=== PATIENT | female | born 1945 | race Caucasian/White ===

== ENCOUNTER 2020-01-15 10:14 | Outpatient (CLI) | payer MEDICARE, OTHER, SELFPAY ==
[2020-01-15 11:41] LABS: Creatinine Urine 241.6 mg/dL; Total Protein Urine Random 9 mg/dL
[2020-01-15 11:41] LABS: Blood Urea Nitrogen 23 mg/dL (7-17); Calcium 9.5 mg/dL (8.4-10.2); Carbon Dioxide 23 mmol/L (22-30); Chloride 104 mmol/L (98-107); Estimated Glomerular Filt Rate 31; Glucose 192 mg/dL (65-105); Parathyroid Intact 62.4 pg/mL (7.5-53.5); Phosphorus 3.5 mg/dL (2.5-4.5); Potassium 4.1 mmol/L (3.4-5.0); Sodium 136 mmol/L (137-145)
[2020-01-15 12:18] LABS: Vitamin D 25 Hydroxy 38.2 ng/mL
== END 2020-01-15 10:15 | disposition home or self-care (01) ==
LOC: ANHLAB 10:18
PROVIDERS: PCP Internal Medicine; Visit Provider Internal Medicine Nephrology
DX: N18.3 Chronic kidney disease, stage 3 (moderate) (principal); I12.9 Hypertensive chronic kidney disease with stage 1 through stage 4 chronic kidney disease, or unspecified chronic kidney disease; R80.8 Other proteinuria
CPT/HCPCS: 36415; 80069; 82306; 82570; 83970; 84156

== ENCOUNTER 2020-08-30 09:51 | Outpatient (CLI) | payer MEDICARE, OTHER, SELFPAY ==
[2020-08-30 10:32] LABS: Basophils Absolute Auto 0.1 K/mm3 (0.0-0.1); Basophils Percent Auto 0.9 % (0.2-1.2); Eosinophils Absolute Auto 0.1 K/mm3 (0-0.3); Eosinophils Percent Auto 1.4 % (0-4.4); Hematocrit 40.8 % (37.0-47.0); Immature Granulocyte Absolute 0.02 K/mm3 (0.00-0.031); Immature Granulocyte Percent A 0.4 % (0-0.5); Lymphocytes Absolute Auto 0.86 K/mm3 (0.9-3.2); Lymphocytes Percent Auto 15.4 % (18.3-44.2); Mean Corpuscular HGB Conc 31.9 g/dl (32-36); Mean Corpuscular Hemoglobin 30.3 pg (26-34); Mean Corpuscular Volume 95.1 fl (80-100); Mean Platelet Volume 12.6 fl (7.4-10.4); Monocytes Absolute Auto 0.5 K/mm3 (0.1-0.6); Monocytes Percent Auto 8.6 % (2.6-8.5); Neutrophils Absolute Auto 4.1 K/mm3 (1.3-6.7); Neutrophils Percent Auto 73.3 % (45.5-73.1); Platelet Count Result 173 k/mm3 (150-375); Red Blood Count 4.29 M/mm3 (4.2-5.4); White Blood Count 5.6 K/mm3 (4.5-10.0)
[2020-08-30 10:45] LABS: Alanine Aminotransferase 13 U/L (4-35); Albumin Level 4.2 g/dL (3.5-5.1); Alkaline Phosphatase 95 U/L (38-126); Anion Gap 10 mmol/L (8-16); Aspartate Amino Transferase 20 U/L (14-36); Bilirubin,Total 0.6 mg/dL (0.2-1.3); Blood Urea Nitrogen 20 mg/dL (7-17); Calcium 9.6 mg/dL (8.4-10.2); Carbon Dioxide 23 mmol/L (22-30); Chloride 104 mmol/L (98-107); Cholesterol 226 mg/dL (0-200); Estimated Glomerular Filt Rate 34; Glucose 116 mg/dL (65-105); HDL Direct 92 mg/dL; Potassium 3.9 mmol/L (3.4-5.0); Sodium 137 mmol/L (137-145); Triglycerides 164 mg/dL (<150)
[2020-08-30 10:55] LABS: LDL Cholesterol Direct 111 mg/dL
== END 2020-08-30 09:52 | disposition home or self-care (01) ==
LOC: ANHLAB 09:56
PROVIDERS: PCP Internal Medicine; Visit Provider Nurse Practitioner
DX: D50.9 Iron deficiency anemia, unspecified (principal); I10 Essential (primary) hypertension; Z13.220 Encounter for screening for lipoid disorders
CPT/HCPCS: 36415; 80053; 80061; 85025

== ENCOUNTER 2020-09-15 15:38 | Outpatient (CLI) | payer MEDICARE, OTHER, SELFPAY ==
[2020-09-15 16:14] LABS: Alanine Aminotransferase 14 U/L (4-35); Albumin Level 4.3 g/dL (3.5-5.1); Alkaline Phosphatase 81 U/L (38-126); Anion Gap 6 mmol/L (8-16); Aspartate Amino Transferase 22 U/L (14-36); Bilirubin,Total 0.2 mg/dL (0.2-1.3); Blood Urea Nitrogen 23 mg/dL (7-17); Calcium 9.2 mg/dL (8.4-10.2); Carbon Dioxide 26 mmol/L (22-30); Chloride 107 mmol/L (98-107); Estimated Glomerular Filt Rate 36; Glucose 90 mg/dL (65-105); Potassium 4.5 mmol/L (3.4-5.0); Sodium 139 mmol/L (137-145); Uric Acid 9.4 mg/dL (2.5-7.5)
== END 2020-09-15 15:39 | disposition home or self-care (01) ==
LOC: ANHLAB 15:40
PROVIDERS: PCP Internal Medicine; Visit Provider Podiatrist Foot & Ankle Surgery
DX: M10.079 Idiopathic gout, unspecified ankle and foot (principal)
CPT/HCPCS: 36415; 80053; 84550

== ENCOUNTER 2020-10-16 00:57 | Outpatient (CLI) | payer MEDICARE, OTHER, SELFPAY ==
[2020-10-16 18:31] LABS: SARS-CoV-2 RNA PCR Negative
== END 2020-10-16 00:58 | disposition home or self-care (01) ==
LOC: ANHCOVIDDT 00:57
PROVIDERS: PCP Internal Medicine; Visit Provider Internal Medicine Gastroenterology
DX: Z01.812 Encounter for preprocedural laboratory examination (principal); Z20.828 Contact with and (suspected) exposure to other viral communicable diseases
CPT/HCPCS: 87635; C9803; U0003

== ENCOUNTER 2020-10-19 01:07 | Day surgery (SDC) | payer MEDICARE, OTHER, SELFPAY ==
[2020-10-11 10:59] VITALS: BMI 29.8
[2020-10-19 12:17] VITALS: BP 150/80; PULSE 82; RESP 18; TEMP 36.2; O2SAT 96
[2020-10-19] MEDS: LACTATED RINGERS 1,000 ML 150 ML IV CONT (12:29)
--- NOTE | 2020-10-19 12:49 | WPDANESEPPF ---
Anes - Initial Pre Proc Eval Procedure: Operation Date: 10/19/20 13:30 Proposed Procedures p Screening Colonoscopy - Isaac Kaur MD Date/Time: 10/19/20 12:49 Surgeon: Isaac Kaur MD Pre Op Diagnosis: Neoplasm Screening Patient Data Age: 75 Gender: F Height: 5 ft 2 in Weight: 76.2 kg Last Vital Signs Temp 97.1 F L 10/19/20 12:17 Pulse 82 10/19/20 12:17 Resp 18 10/19/20 12:17 BP 150/80 H 10/19/20 12:17 Pulse Ox 96 10/19/20 12:17 Allergies Allergy/AdvReac Type Severity Reaction Status Date / Time Sulfa (Sulfonamide Allergy Intermediate Hives Verified 10/19/20 12:16 Antibiotics) Home Medications Medication Instructions Recorded Confirmed Type fluoxetine 40 mg capsule 40 mg PO DAILY 11/13/19 10/11/20 History amlodipine 5 mg tablet 5 mg PO DAILY 09/06/20 10/11/20 History biotin 5,000 mcg sublingual tablet 5,000 mcg SUBLINGUAL DAILY 09/06/20 10/11/20 History cholecalciferol (vitamin D3) 50 50 mcg PO DAILY 09/06/20 10/11/20 History mcg (2,000 unit) capsule mecobalamin (vitamin B12) 1,000 1,000 mcg SUBLINGUAL DAILY 09/06/20 10/11/20 History mcg disintegrating tablet,sublingual triamterene 37.5 1 tablet PO QAM 09/06/20 10/11/20 History mg-hydrochlorothiazide 25 mg tablet trazodone 100 mg tablet 100 mg PO DAILY #90 tablet 09/16/20 10/11/20 Rx Patient hx anesthesia problems: none Family hx anesthesia problems: none PMFSH Past Medical History Medical History (Updated 09/06/20 @ 11:45 by Marjan Vega NP) Anemia CKD (chronic kidney disease) Depression Hyperglycemia Hypertension Insomnia Overdose of antidepressant Surgical History Surgical History (Updated 11/13/19 @ 14:20 by Aleja Mcrae CMA) H/O: hysterectomy Family History Family History (Updated 09/06/20 @ 10:42 by Karlie Ash CMA) Sibling Pancreatic cancer Father Family history of lung cancer Other Family history of cardiovascular disease Social History Social History (Updated 09/06/20 @ 10:42 by Karlie Ash CMA) Smoking status: Never smoker Smoking end date: 11/19/72 Alcohol intake: current Drinks per week: 2 Substance use: never Substance use type: does not use Living arrangements: alone Spiritual care concerns: No Anes - Eval Final PreProcedure Day of Procedure 10/19/20 12:49 Patient weight: normal Heart: regular rate and rhythm Lungs: clear to auscultation Airway: Mallampati scale class II Neurological: alert and oriented Last oral intake: >/= 8 hours ASA classification: III Emergent: no Anesthetic plan: proceed Anesthesia type and monitoring: general GIVS and standard monitoring Informed Consent: The patient's anesthetic plan and its attendant risks and benefits were discussed with the patient/family/POA. Questions were solicited and answers provided to the satisfaction of the patient/family/POA.
--- NOTE | 2020-10-19 13:29 | PM.HPGS ---
History of Present Illness History of Present Illness Consent: Risks, benefits, and alternatives have been discussed and questions answered. Patient agrees to proceed with procedure. Chief complaint: Neoplasm Screening Narrative: Elle Corrigan is a 75 year old female with last colonoscopy 8 years ago, now + cologuard Review of Systems Constitutional: Constitutional: Denies headache(s) and Denies weakness Eyes: Eyes: Denies blurry vision ENT: Reports Normal hearing present, Denies headache(s) and Denies neck pain Cardiovascular: Cardiovascular: Denies chest pain and Denies dyspnea Respiratory: Respiratory: Denies dyspnea Gastrointestinal: Gastrointestinal: Reports no additional gastrointestinal complaints Genitourinary: Genitourinary: Denies dysuria Musculoskeletal: Musculoskeletal: Denies neck pain Integumentary/Breasts: Skin/Breast: Denies dry skin Neurologic: Reports Normal hearing present, Denies headache(s) and Denies weakness Psychiatric: Psychiatric: Denies anxiety Endocrine: Endocrine: Denies change in body appearance Hematologic/Lymphatic: Hematologic/Lymphatic: Denies easy bleeding Allergic/Immunologic: Allergic/Immunologic: Denies urticaria PMFSH Past Medical History Medical History (Updated 10/19/20 @ 13:29 by Isaac Kaur MD) Anemia CKD (chronic kidney disease) Depression Hyperglycemia Hypertension Insomnia Overdose of antidepressant Positive colorectal cancer screening using Cologuard test Surgical History Surgical History (Updated 11/13/19 @ 14:20 by Aleja Mcrae [facility]) H/O: hysterectomy Family History Family History (Updated 09/06/20 @ 10:42 by Karlie Ash CMA) Sibling Pancreatic cancer Father Family history of lung cancer Other Family history of cardiovascular disease Social History Social History (Updated 09/06/20 @ 10:42 by Karlie Ash [facility]) Smoking status: Never smoker Smoking end date: 11/19/72 Alcohol intake: current Drinks per week: 2 Substance use: never Substance use type: does not use Living arrangements: alone Spiritual care concerns: No Meds Home Medications and Allergies Home Medications Medication Instructions Recorded Confirmed Type fluoxetine 40 mg capsule 40 mg PO DAILY 11/13/19 10/11/20 History amlodipine 5 mg tablet 5 mg PO DAILY 09/06/20 10/11/20 History biotin 5,000 mcg sublingual tablet 5,000 mcg SUBLINGUAL DAILY 09/06/20 10/11/20 History cholecalciferol (vitamin D3) 50 50 mcg PO DAILY 09/06/20 10/11/20 History mcg (2,000 unit) capsule mecobalamin (vitamin B12) 1,000 1,000 mcg SUBLINGUAL DAILY 09/06/20 10/11/20 History mcg disintegrating tablet,sublingual triamterene 37.5 1 tablet PO QAM 09/06/20 10/11/20 History mg-hydrochlorothiazide 25 mg tablet trazodone 100 mg tablet 100 mg PO DAILY #90 tablet 09/16/20 10/11/20 Rx Allergies Allergy/AdvReac Type Severity Reaction Status Date / Time Sulfa (Sulfonamide Allergy Intermediate Hives Verified 10/19/20 12:16 Antibiotics) Vital Signs Vital Signs - 24 hr 10/19/20 12:17 Temperature 97.1 F L Pulse Rate 82 Respiratory Rate 18 Blood Pressure 150/80 H Pulse Oximetry 96 Exam Const: General: comfortable and no acute distress HENMT: General nose exam: Normal nares present Eyes: General: appearance normal, both eyes and all related structures Neck: Neck: no JVD Resp: Auscultation: clear to auscultation bilaterally Cardio: Rate: regular rate Rhythm: regular rhythm GI: Inspection: non-distended GI Palp: Yes Soft to palpation Skin: General skin exam: normal color Neuro: General: gait normal Speech: normal speech Extrem: General: normal to inspection Psych: Mental Status: mental status grossly normal Assessment and Plan Assessment and plan (1) Positive colorectal cancer screening using Cologuard test: Code(s): R19.5 - Other fecal abnormalities Status: Acute As
--- NOTE | 2020-10-19 13:43 | P.OP_ITS ---
Procedure Note - Detailed Date of procedure: 10/19/20 Pre-op diagnosis: Neoplasm Screening Surgeon: Isaac Kaur MD Endoscopist(s): Isaac Kaur MD Radiological Health Specialist(s): Tracy Wilson RN Medication(s): See PORTABLE GRINDING MACHINE OPERATOR Report Indications: positive cologuard. Description of Procedure: Informed consent was obtained with the risks, benefits, and alternatives to sedation and procedure explained, including but not limited to: infection, bleeding, aspiration, perforation, adverse medication reaction, missed diagnosis, and missed lesions. The patient verbalized understanding and signed the informed consent form to proceed with the sedation and the procedure.Patient's last Colonoscopy was 4 years ago.No contraindications were noted on the physical exam. Immediately prior to sedation for endoscopy, the patient's ASA Classification was Class III: severe systemic disease, but not incapacitating. Patient re-examined and no interval changes noted from preoperative history and physical. After the patient was rolled into the procedure room, two methods of identification were used to identify the patient and the procedure to be performed prior to the procedure.Anesthesia was administered by anesthesia service. The quality of the prep was excellent. Once the patient was comfortable a digital rectal exam was performed, and no masses were palpated. The patient was placed in the left lateral decubitus position.The instrument was inserted into the rectum and then advanced to the cecum.A retroflexion was performed in the rectum. The withdrawal time from the cecum was 7 minutes. The patient tolerated the procedure well. The patient's heart rate was normal. The oxygen saturation and skin color were normal. The patient will be recovered per established procedures and protocols upon discharge from the endoscopy suite. Findings: There was one polyp observed in the ascending colon. Cold forceps polypectomy was performed. The polyp was completely excised. A few small diverticula were present in the transverse colon, in the descending colon, and in the sigmoid colon. The diverticula were not actively bleeding, no inflammation. Small internal hemorrhoids, no bleeding. Endoscopic Diagnosis: Colonic Polyp(s) (K63.5) Diverticulosis without Perforation or Abscess without Bleeding (K57.30) Suggested Billing Codes: Colonoscopy, flexible; with biopsy, single or multiple (45139) Recommendations: Ok to go home after recovery No need to repeat another colonoscopy for screening Resume Diet Resume Home Medications Follow-up with your primary care physician for general care.
[2020-10-19 13:46] VITALS: BP 153/62; PULSE 65; RESP 19; O2SAT 97
[2020-10-19 13:56] VITALS: BP 166/68; PULSE 63; RESP 19; O2SAT 98
[2020-10-19 14:06] VITALS: BP 166/63; PULSE 65; RESP 22; O2SAT 97
== END 2020-10-19 14:14 | disposition home or self-care (01) ==
PROVIDERS: PCP Internal Medicine; Visit Provider Internal Medicine Gastroenterology
PROC: 0DJD8ZZ Inspection of Lower Intestinal Tract, Via Natural or Artificial Opening Endoscopic (ICD-10-PCS; CPT 45378; principal; 2020-10-19 13:30)
DX: Z12.11 Encounter for screening for malignant neoplasm of colon (principal); D12.2 Benign neoplasm of ascending colon; K57.30 Diverticulosis of large intestine without perforation or abscess without bleeding; R19.5 Other fecal abnormalities; I12.9 Hypertensive chronic kidney disease with stage 1 through stage 4 chronic kidney disease, or unspecified chronic kidney disease; N18.9 Chronic kidney disease, unspecified; D64.9 Anemia, unspecified; F32.9 Major depressive disorder, single episode, unspecified
CPT/HCPCS: 45380; 88305; J2704; J7120

== ENCOUNTER 2021-03-10 10:01 | Outpatient (CLI) | payer MEDICARE, SELFPAY ==
--- NOTE | ~2021-03-10 | XR_ITS ---
XR lumbar spine 2-3V DATE: 03/10/2021 10:27 INDICATION: Low back pain, sacroiliac pain. No injury. TECHNIQUE: AP, lateral, coned lateral lumbosacral views COMPARISON: 05/07/2015 MRI lumbar spine FINDINGS: There is minimal dextroscoliosis. There is moderately severe degenerative disc disease at L1-L2 3 and L5-S1 and mild degenerative disea se at L3-4 and L4-5. There is degenerative change at the apophyseal joints with associated grade 1 anterolisthesis at L4-5 . No fracture or bone destruction is evident. The lumbar pedicles are intact. The sacroiliac joints are normal. Postoperative changes of the left upper quadrant of the abdomen. IMPRESSION: Multilevel degenerative disc disease Grade 1 anterolisthesis at L4-5 due to degenerative change at the apophyseal joints Minimal dextroscoliosis Osteopenia Reviewed, dictated and finalized at location A. IMPRESSION: Multilevel degenerative disc disease Grade 1 anterolisthesis at L4-5 due to degenerative change at the apophyseal alexey ints Minimal dextroscoliosis Osteopenia
--- NOTE | ~2021-03-10 | XR_ITS ---
XR chest 2V DATE: 03/10/2021 10:27 INDICATION: Night sweats. Generalized hyperhidrosis. TECHNIQUE: PA and lateral views COMPARISON: 10/09/2018 portable AP chest FINDINGS: Normal heart size. No hilar or mediastinal enlargement. No pulmonary infiltrate or consolidation, pleural effusion or pulmonary vascular congestion or pneumo thorax. There are surgical clips either side of the diaphragmatic hiatus in the lower mid chest and left uppe r quadrant. IMPRESSION: No active cardiopulmonary disease Reviewed, dictated and finalized at location A.
== END 2021-03-10 10:02 | disposition home or self-care (01) ==
PROVIDERS: PCP Internal Medicine; Visit Provider Nurse Practitioner
DX: R61 Generalized hyperhidrosis (principal); M85.88 Other specified disorders of bone density and structure, other site; M51.36 Other intervertebral disc degeneration, lumbar region
CPT/HCPCS: 71046; 72100

== ENCOUNTER 2021-03-18 15:53 | Outpatient (CLI) | payer MEDICARE, SELFPAY ==
--- NOTE | ~2021-03-18 | MR_ITS ---
EXAMINATION: MR lumbar spine wo con EXAM DATE: 03/18/2021 16:35 INDICATION: M54.5 - Low back pain . TECHNIQUE: Multi-sequential, multiplanar MR images of the lumbar spine were obtained without contrast . Sagittal T1, T2, T2 fat saturation images. Axial T2 weighted images. Comparison is made to prior examination from 05/07/2015. 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 Moderate loss of the L1-2 and mild to moderate loss of the L2-3 disc height. There is 2 mm anterolisthesis L4 on L5. The conus medullaris terminates at the L1/2 level and has normal signal intensity and morphology. There are no suspicious marrow signal abnormalities. Paraspinal soft tissue is unremarkable. Level by level evaluation: T12-L1: Disc does not extend beyond the endplate margin. Facet arthropathy: Mild. Neural foraminal stenosis: No stenosis. Central canal stenosis: No stenosis. L1-L2: There is a moderate diffuse disc bulge. Facet arthropathy: Mild. Neural foraminal stenosis: Mild left. Central canal stenosis: Mild. L2-L3: There is a mild to moderate diffuse disc bulge. Facet arthropathy: Mild. Neural foraminal stenosis: No stenosis. Central canal stenosis: No stenosis. L3-L4: There is a mild to moderate diffuse disc bulge. Facet arthropathy: Mild to moderate . Ligamentum flavum enlargement. Neural foraminal stenosis: Mild bilateral. Central canal stenosis: Mild. L4-L5: There is a mild to moderate diffuse disc bulge. Facet arthropathy: Moderate to severe. Neural foraminal stenosis: Mild right. Central canal stenosis: Mild to moderate. L5-S1: There is a mild to moderate diffuse disc bulge. Facet arthropathy: Moderate. Neural foraminal stenosis: Moderate left, mild to moderate right. Central canal stenosis: Mild. Mild progression spondylosis compared to 2015. IMPRESSION: 1. Lower lumbar predominant spondylosis as detailed above. 2. No acute findings. Reviewed, dictated and finalized at location A.
== END 2021-03-18 15:54 | disposition home or self-care (01) ==
LOC: ANHIMG 15:55
PROVIDERS: PCP Internal Medicine; Visit Provider Clinical Nurse Specialist
DX: M47.896 Other spondylosis, lumbar region (principal)
CPT/HCPCS: 72148

== ENCOUNTER 2021-11-04 08:57 | Outpatient (CLI) | payer MEDICARE, SELFPAY ==
[2021-11-04 09:30] LABS: Alanine Aminotransferase 20 U/L (4-35); Albumin Level 4.4 g/dL (3.5-5.1); Alkaline Phosphatase 90 U/L (38-126); Anion Gap 8 mmol/L (8-16); Aspartate Amino Transferase 27 U/L (14-36); Basophils Absolute Auto 0.1 K/mm3 (0.0-0.1); Bilirubin,Total 0.5 mg/dL (0.2-1.3); Blood Urea Nitrogen 17 mg/dL (7-17); Calcium 9.7 mg/dL (8.4-10.2); Carbon Dioxide 27 mmol/L (22-30); Chloride 102 mmol/L (98-107); Cholesterol 215 mg/dL (0-200); Eosinophils Absolute Auto 0.1 K/mm3 (0-0.3); Eosinophils Percent Auto 2.2 % (0-4.4); Estimated Glomerular Filt Rate 40; Glucose 107 mg/dL (65-110); HDL Direct 84 mg/dL; Hematocrit 42.1 % (37.0-47.0); Hemoglobin 13.4 g/dL (12.0-15.0); Immature Granulocyte Absolute 0.02 K/mm3 (0.00-0.031); Immature Granulocyte Percent A 0.4 % (0-0.5); Lymphocytes Absolute Auto 0.86 K/mm3 (0.9-3.2); Lymphocytes Percent Auto 17.1 % (18.3-44.2); Mean Corpuscular HGB Conc 31.8 g/dl (32-36); Mean Corpuscular Hemoglobin 31.8 pg (26-34); Mean Corpuscular Volume 99.8 fl (80-100); Mean Platelet Volume 12.4 fl (7.4-10.4); Monocytes Absolute Auto 0.6 K/mm3 (0.1-0.6); Monocytes Percent Auto 12.7 % (2.6-8.5); Neutrophils Absolute Auto 3.4 K/mm3 (1.3-6.7); Neutrophils Percent Auto 66.6 % (45.5-73.1); Platelet Count Result 177 k/mm3 (150-375); Potassium 4.4 mmol/L (3.4-5.0); Red Blood Count 4.22 M/mm3 (4.2-5.4); Red Cell Distribution Width 12.9 % (11.5-14.5); Sodium 137 mmol/L (137-145); Triglycerides 108 mg/dL (<150)
[2021-11-04 09:45] LABS: LDL Cholesterol Direct 95 mg/dL
[2021-11-08 14:01] LABS: Vitamin D 25 Hydroxy 41.9 ng/mL
== END 2021-11-04 08:58 | disposition home or self-care (01) ==
PROVIDERS: PCP Internal Medicine; Visit Provider Nurse Practitioner
DX: M85.80 Other specified disorders of bone density and structure, unspecified site (principal); I10 Essential (primary) hypertension; Z13.220 Encounter for screening for lipoid disorders
CPT/HCPCS: 36415; 80053; 80061; 82306; 85025

== ENCOUNTER 2022-04-06 14:57 | Outpatient (RCR) | payer MEDICARE, SELFPAY ==
[2022-04-06] MEDS: FAMOTIDINE 20 MG TABLET PO (15:27)
[2022-04-06] MEDS: diphenhydrAMINE HCl CAP 25 MG CAPSULE PO (15:27)
[2022-04-06] MEDS: ACETAMINOPHEN 325 MG TABLET 650 MG PO (15:27)
[2022-04-06 15:44] VITALS: BP 117/52; PULSE 70; RESP 20; TEMP 37.1; O2SAT 97
[2022-04-06] MEDS: BEBTELOVIMAB 175 MG/2 ML VIAL IV PUSH (15:45)
[2022-04-06 16:25] VITALS: BP 143/58; PULSE 68; RESP 20; O2SAT 96
== END 2022-04-06 16:00 ==
LOC: AMCINF 14:57
PROVIDERS: PCP Nurse Practitioner; Visit Provider Internal Medicine Hematology & Oncology
DX: U07.1 COVID-19 (principal); I10 Essential (primary) hypertension; N18.9 Chronic kidney disease, unspecified
CPT/HCPCS: A9270; M0222; Q0222

== ENCOUNTER 2022-08-02 12:48 | Emergency (ER) | payer MEDICARE, SELFPAY ==
[2022-08-02 12:56] VITALS: BP 141/55; PULSE 72; RESP 18; TEMP 36.9; O2SAT 95
--- NOTE | 2022-08-02 13:24 | ED.EAR ---
HPI - Ear Problem General Chief complaint: Ear Stated complaint: hearing loss Time Seen by Provider: 08/02/22 13:15 Source: patient, RN notes reviewed and old records reviewed Mode of arrival: ambulatory Limitations: no limitations History of Present Illness HPI Narrative: 77-year-old female who presents to [facility] with complaints of 2-day history of being unable to hear. Patient reports that she has had problems with excessive ear wax and has had to go to ENT before to get her ears leaned out. Patient denies any fevers chills or sweats, denies any sinus congestion or drainage or any sore throat, or any cough. MD Complaint: decreased hearing Location: bilateral Duration: constant Treatment prior to arrival: none Related Data Home Medications Medication Instructions Recorded Confirmed biotin 5,000 mcg sublingual tablet 5,000 mcg sublingual DAILY 09/06/20 05/17/22 cholecalciferol (vitamin D3) 50 50 mcg PO DAILY 09/06/20 05/17/22 mcg (2,000 unit) capsule hydrochlorothiazide 25 mg tablet mg 08/02/22 Allergies Allergy/AdvReac Type Severity Reaction Status Date / Time Sulfa (Sulfonamide Allergy Intermediate Hives Verified 08/02/22 13:03 Antibiotics) Review of Systems Review of Systems: CONSTITUTIONAL: Denies fever, chills, or sweats. EYES: Denies visual changes, redness, or discharge. ENT: Denies rhinorrhea, congestion, sore throat, or otalgia., reports that she can't hear CARDIOVASCULAR: Denies chest pain, palpitations, or edema. RESPIRATORY: Denies cough or dyspnea. GASTROINTESTINAL: Denies abdominal pain, nausea, vomiting, or diarrhea. GENITOURINARY: Denies dysuria or hematuria. SKIN: Denies rash or itching. MUSCULOSKELETAL: Denies back pain, joint pain, or myalgia. NEUROLOGIC: Denies headache, numbness, or weakness. PSYCHIATRIC: Positive for history of anxiety or depression. All systems reviewed & are unremarkable except as noted in HPI and below PMFSH Past Medical History Medical History Anemia CKD (chronic kidney disease) Depression Hyperglycemia Hypertension Insomnia Overdose of antidepressant Positive colorectal cancer screening using Cologuard test Surgical History Surgical History H/O: hysterectomy Family History Family History Sibling Pancreatic cancer Father Family history of lung cancer Other Family history of cardiovascular disease Social History Social History Social History: Caffeine-soda Smoking status: Former smoker Smoking end date: 11/19/72 Alcohol intake: current Drinks per week: 2 Alcohol use details: Pt drinks occasionally. Substance use: never Substance use type: does not use Spiritual care concerns: No Comments At time of signature, agree with nursing past medical, surgical, social and family history. There is no relevant family history pertinent to the presenting complaint Exam Narrative: GENERAL: Well-appearing, well-nourished, and in no acute distress. HEAD: Normocephalic, atraumatic. EYES: PERRLA and EOMI. ENT: Nares clear, no rhinorrhea or epistaxis. Mucous membranes moist.TM's impacted with cerumen bilaterally see procedure note, left ear canal has some redness post procedure with small area of bleeding. NECK: Supple. no lymphadenopathy CHEST: Clear to auscultation. No respiratory distress.SAO2 95% on room air, no tachypnea noted HEART: Regular rate and rhythm. No murmur heard. Normal peripheral pulses. ABDOMEN: Soft, nontender, nondistended, normal active bowel sounds. EXTREMITIES: Normal range of motion. No edema. SKIN: Warm, dry, no rash. NEURO: No focal deficits. Alert and oriented x3. Course Course Level of Care: Express Care Visit Vital Signs Vital signs: Vital Signs Temperature 36.9 C 08/02/22 12:
--- NOTE | 2022-08-02 13:40 | PC.NURSE ---
irragation for ear set up at bedside.
== END 2022-08-02 14:23 | disposition home or self-care (01) ==
PROVIDERS: Emergency Provider Registered Nurse; PCP Internal Medicine
DX: H60.92 Unspecified otitis externa, left ear (principal); H61.23 Impacted cerumen, bilateral; Z87.891 Personal history of nicotine dependence; I12.9 Hypertensive chronic kidney disease with stage 1 through stage 4 chronic kidney disease, or unspecified chronic kidney disease; N18.9 Chronic kidney disease, unspecified
CPT/HCPCS: 69210; 99213; G0463

== ENCOUNTER 2022-10-11 07:11 | Outpatient (RCR) | payer MEDICARE, SELFPAY ==
[2022-10-11] MEDS: ACETAMINOPHEN 325 MG TABLET 650 MG PO (07:47)
[2022-10-11] MEDS: FAMOTIDINE 20 MG TABLET PO (07:48)
[2022-10-11] MEDS: diphenhydrAMINE HCl CAP 25 MG CAPSULE PO (07:48)
[2022-10-11 07:55] VITALS: BP 144/66; PULSE 80; TEMP 35.9; O2SAT 97
[2022-10-11] MEDS: BEBTELOVIMAB 175 MG/2 ML VIAL IV PUSH (08:04)
[2022-10-11 08:45] VITALS: BP 136/55; PULSE 64; O2SAT 95
== END 2022-10-11 16:00 ==
LOC: AMCINF 07:11
PROVIDERS: PCP Clinical Nurse Specialist; Visit Provider Internal Medicine Hematology & Oncology
DX: U07.1 COVID-19 (principal); I10 Essential (primary) hypertension; N18.9 Chronic kidney disease, unspecified
CPT/HCPCS: A9270; M0222; Q0222

== ENCOUNTER 2022-10-19 15:17 | Outpatient (CLI) | payer MEDICARE, SELFPAY ==
[2022-10-19 18:54] LABS: Appearance Urine Slightly Cloudy (Clear); Bilirubin Urine 1+ (Negative); Blood Urine Negative (Negative); Color Urine Yellow (Yellow); Glucose Urine UA Negative (Negative); Ketones Urine Trace mg/dL (Negative); Leukocyte Esterase Ur 2+ LEU/UL (NEGATIVE); Nitrate Urine Negative (Negative); Protein Urine Trace mg/dL (Negative); Specific Grav Ur 1.025 (1.001-1.035); Urobilinogen Urine 0.2 mg/dL (<2.0); pH Urine 5.5 (5.0-9.0)
[2022-10-19 18:55] LABS: Basophils Absolute Auto 0.1 K/mm3 (0.0-0.1); Basophils Percent Auto 0.6 % (0.2-1.2); Eosinophils Absolute Auto 0.1 K/mm3 (0-0.3); Eosinophils Percent Auto 1.4 % (0-4.4); Hematocrit 41.3 % (37.0-47.0); Immature Granulocyte Absolute 0.02 K/mm3 (0.00-0.031); Immature Granulocyte Percent A 0.2 % (0-0.5); Lymphocytes Absolute Auto 1.38 K/mm3 (0.9-3.2); Mean Corpuscular HGB Conc 31.5 g/dl (32-36); Mean Corpuscular Hemoglobin 30.2 pg (26-34); Mean Platelet Volume 12.2 fl (7.4-10.4); Monocytes Absolute Auto 0.8 K/mm3 (0.1-0.6); Monocytes Percent Auto 10.3 % (2.6-8.5); Neutrophils Absolute Auto 5.7 K/mm3 (1.3-6.7); Neutrophils Percent Auto 70.5 % (45.5-73.1); Platelet Count Result 252 k/mm3 (150-375); Red Cell Distribution Width 11.9 % (11.5-14.5); White Blood Count 8.1 K/mm3 (4.5-10.0)
[2022-10-19 18:58] LABS: Amorphous Sediment Urine Few; Bacteria Urine Trace /hpf; Hyaline Casts Urine 15-19 /lpf; Mucus Urine Heavy /lpf; RBC Urine 0-2 /hpf (0-2); Squamous Epithelial Cell Urine Occasional /hpf (Few); WBC Urine 31-50 /hpf (0-3)
[2022-10-19 19:02] LABS: Add Urine Microscopic? YES
[2022-10-19 19:06] LABS: Alanine Aminotransferase 19 U/L (6-35); Albumin Level 4.2 g/dL (3.5-5.1); Alkaline Phosphatase 97 U/L (38-126); Anion Gap 11 mmol/L (8-16); Aspartate Amino Transferase 50 U/L (14-36); Bilirubin,Total 0.4 mg/dL (0.2-1.3); Blood Urea Nitrogen 34 mg/dL (7-17); Calcium 9.4 mg/dL (8.4-10.2); Carbon Dioxide 26 mmol/L (22-30); Chloride 103 mmol/L (98-107); Estimated Glomerular Filt Rate 27; Glucose 131 mg/dL (65-110); Potassium 4.4 mmol/L (3.4-5.0); Sodium 140 mmol/L (137-145)
[2022-10-19 20:12] LABS: Folic Acid 8.1 ng/mL (2.76->20)
== END 2022-10-19 15:18 | disposition home or self-care (01) ==
LOC: ANHGOSHLAB 15:19
PROVIDERS: PCP Internal Medicine; Visit Provider Nurse Practitioner
DX: R41.3 Other amnesia (principal); I12.9 Hypertensive chronic kidney disease with stage 1 through stage 4 chronic kidney disease, or unspecified chronic kidney disease; N18.9 Chronic kidney disease, unspecified
CPT/HCPCS: 36415; 80053; 81001; 82607; 82746; 84443; 85025

== ENCOUNTER 2022-10-26 13:05 | Outpatient (CLI) | payer MEDICARE, SELFPAY | END 2022-10-26 13:06 | disposition home or self-care (01) | LOC: ANHAUDIO 13:06 | PROVIDERS: PCP Internal Medicine; Visit Provider Otolaryngology | DX: H90.3 Sensorineural hearing loss, bilateral (principal) | CPT/HCPCS: 92557; 92567 ==

== ENCOUNTER 2022-11-20 10:43 | Outpatient (CLI) | payer MEDICARE, SELFPAY ==
--- NOTE | ~2022-11-20 | MR_ITS ---
EXAMINATION: MR brain/brain stem wo/w con DATE: 11/20/2022 12:00 INDICATION: Memory loss. Aphasia. TECHNIQUE: Magnetic resonance imaging (MRI) of the brain and brainstem was performed without and with 14 mL MultiHance intravenous contrast. COMPARISON: Head CT 10/09/2018 FINDINGS: There is no intracranial hemorrhage, acute infarction, or abnormal intracranial mass lesion . There is an old infarct involving the left basal ganglia and left internal capsule. There are old i nfarcts involving the right basal ganglia and right frontal lobe conn radiata. The ventricles are n ormal in size. There is mild mucosal thickening in the ethmoid sinuses. There are likely changes of o cular lens replacement surgeries. The mastoid air cells are normal. IMPRESSION: 1. Old infarcts involving the bilateral basal ganglia, left internal capsule, and right frontal lobe conn radiata. 2. Mild nonspecific cerebral white matter disease, which likely represents chronic small vessel ische kamron disease. Reviewed, dictated and finalized at location A. MOTIVE PARTS MANAGER IMPRESSION: 1. Old infarcts involving the bilateral basal ganglia, left internal capsule, a nd right frontal lobe conn radiata. 2. Mild nonspecific cerebral white matter disease, which likely represents industrial specialist jennifer small vessel ischemic disease.
== END 2022-11-20 10:44 | disposition home or self-care (01) ==
PROVIDERS: PCP Internal Medicine; Visit Provider Nurse Practitioner
DX: R41.3 Other amnesia (principal); R90.82 White matter disease, unspecified
CPT/HCPCS: 70553; A9577

== ENCOUNTER 2022-11-24 11:52 | Outpatient (CLI) | payer MEDICARE, SELFPAY ==
[2022-11-24 20:15] LABS: Anion Gap 7 mmol/L (8-16); Blood Urea Nitrogen 25 mg/dL (7-17); Calcium 9.3 mg/dL (8.4-10.2); Carbon Dioxide 28 mmol/L (22-30); Chloride 101 mmol/L (98-107); Estimated Glomerular Filt Rate 33; Glucose 89 mg/dL (65-110); Potassium 4.5 mmol/L (3.4-5.0); Sodium 136 mmol/L (137-145)
== END 2022-11-24 11:53 | disposition home or self-care (01) ==
LOC: ANHGOSHLAB 11:54
PROVIDERS: PCP Internal Medicine; Visit Provider Nurse Practitioner
DX: N18.9 Chronic kidney disease, unspecified (principal); Z86.73 Personal history of transient ischemic attack (TIA), and cerebral infarction without residual deficits
CPT/HCPCS: 36415; 80048

== ENCOUNTER 2022-12-11 07:27 | Outpatient (CLI) | payer MEDICARE, SELFPAY ==
--- NOTE | ~2022-12-11 | US_ITS ---
EXAMINATION: US carotid duplex BI DATE: 12/11/2022 08:58 INDICATION: Transient ischemic attack. With memory issues and aphasia TECHNIQUE: Grayscale, color Doppler, and pulsed Doppler images of the cervical carotid arteries were obtained. The degree of vessel stenosis is placed in one of the following categories: normal, <50%, 5 0-69%, >=70% but less than near-occlusion, near-occlusion, or total occlusion. Note that percent sten osis relative to normal distal artery lumen diameter is indirectly measured from velocity measurement s as described by Jamal, et al. Radiology 2003; 229:340-346. COMPARISON: None. FINDINGS: RIGHT: The right common carotid artery (CCA) peak systolic velocity (PSV) is 65 cm/s. The right internal car otid artery (ICA) PSV is 151 cm/s. The right ICA end-diastolic velocity (EDV) is 23 cm/s. The right I CA/CCA PSV ratio is 2.3. Grayscale and color Doppler images yield an estimate of 50-69% diameter redu ction from plaque in the ICA. The external carotid artery (ECA) PSV is 66 cm/s. There is antegrade fl ow in the right vertebral artery. LEFT: The left CCA PSV is 89 cm/s. The left ICA PSV is 109 cm/s. The left ICA EDV is 21 cm/s. The left ICA/ CCA PSV ratio is 1.2. Grayscale and color Doppler images yield an estimate of <50% diameter reduction from plaque in the ICA. The ECA PSV is 47 cm/s. There is antegrade flow in the left vertebral artery . IMPRESSION: 1. 50-69% stenosis in the right internal carotid artery. 2. <50% stenosis in the left internal carotid artery. Reviewed, dictated and finalized at location B. GN ENG
--- NOTE | 2022-12-11 07:35 | ECHO_ITS ---
Patient Info Name: Elle Corrigan Age: 77 years : 1945 Gender: Female Ht: 63 in Wt: 160 lbs BSA: 1.82 m2 HR: 61 bpm BP: 130 / 76 mmHg Technical Quality: Fair Exam Date: 12/11/2022 7:43 AM Exam Location: [facility] Patient Status: Outpatient Admit Date: 12/11/2022 Staff Ordering Physician: Marjan Vega NP Processor Inspector: Eryn Melvin RDCS Attending Provider: Bill Colin DO Referring Physician: Gary CARMEN; Exam Type: CA echo doppler color flow Study Info Indications Z86.73 - Personal history of transient ischemic attack (TIA), and cerebral infarction without residual deficits Complete two-dimensional, color flow and Doppler transthoracic echocardiogram is performed. Summary 1. Complete two-dimensional, color flow and Doppler transthoracic echocardiogram is performed. 2. Left ventricular chamber dimension is normal. 3. Left ventricular systolic function is normal, estimated at 60-65%. 4. There is mildly increased left ventricular wall thickness. 5. The left ventricular diastolic function is grade I diastolic dysfunction. 6. E/e' 8 is minimally elevated. 7. Global longitudinal strain is abnormal at -15.9%. 8. Left atrial chamber dimension is mildly enlarged. 9. There is trace tricuspid valve regurgitation. 10. No pulmonary hypertension, estimated pulmonary arterial systolic pressure is 20 mmHg. 11. There is trace pulmonic regurgitation. 12. There is trivial pericardial effusion. Left Ventricle E/e' 8 is minimally elevated. Global longitudinal strain is abnormal at -15.9%. Left ventricular chamber dimension is normal. Left ventricular systolic function is normal, estimated at 60-65%. There is mildly increased left ventricular wall thickness. The left ventricular diastolic function is grade I diastolic dysfunction. Right Ventricle Right ventricular systolic function is normal and with normal TAPSE 1.9 cm. Right ventricular chamber dimension is normal. Left Atria Left atrial chamber dimension is mildly enlarged. Right Atria Right atrial chamber dimension is normal. Aortic Valve The aortic valve is trileaflet. There is no aortic valve stenosis. There is no aortic valve regurgitation. Pulmonic Valve There is trace pulmonic regurgitation. Mitral Valve There is no mitral valve stenosis. There is no mitral valve regurgitation. Tricuspid Valve There is trace tricuspid valve regurgitation. No pulmonary hypertension, estimated pulmonary arterial systolic pressure is 20 mmHg. Pericardium/Pleural There is trivial pericardial effusion. Inferior Vena Cava Normal inferior vena cava with >50% collapse upon inspiration consistent with normal right atrial pressure, 5 mmHg. Aorta The aortic root size at the sinus of Valsalva is normal. Left Ventricular Outflow Tract Name Value Normal LVOT 2D LVOT Diameter 2.0 cm LVOT Doppler LVOT Peak Gradient 4 mmHg LVOT Mean Gradient 3 mmHg LVOT VTI 26 cm LVOT VTI/AV VTI Ratio 0.9 LVOT Stroke Vo
== END 2022-12-11 07:28 | disposition home or self-care (01) ==
PROVIDERS: PCP Internal Medicine; Visit Provider Internal Medicine
DX: I65.23 Occlusion and stenosis of bilateral carotid arteries (principal)
CPT/HCPCS: 93306; 93880

== ENCOUNTER 2022-12-17 19:44 | Emergency (ER) | payer MEDICARE, SELFPAY ==
[2022-12-17 17:06] VITALS: BP 137/57; PULSE 72; RESP 17; TEMP 36.4; O2SAT 100
--- NOTE | 2022-12-17 19:42 | PC.NURSE ---
pt left d/t wait time. left with family
== END 2022-12-17 20:12 | disposition left against medical advice (07) ==
LOC: ANHED 19:47
PROVIDERS: PCP Internal Medicine
DX: S01.01XA Laceration without foreign body of scalp, initial encounter (principal)
CPT/HCPCS: 99199

== ENCOUNTER 2022-12-18 15:27 | Outpatient (CLI) | payer MEDICARE, SELFPAY ==
--- NOTE | ~2022-12-18 | CT_ITS ---
EXAMINATION: CT brain wo con DATE: 12/18/2022 15:50 INDICATION: Fall with posterior head injury TECHNIQUE: Computed tomography (CT) of the head was performed without intravenous contrast. Sagittal and coronal reconstructions were performed. The mA was adjusted according to patient size. Iterative reconstruction technique was employed. The dose-length product was 605.33 mGy-cm. COMPARISON: head CT dated 10/09/18 and brain MR dated 11/20/22 FINDINGS: Left posterior scalp hematoma. No fracture. Small old lacunar infarcts at the left internal capsule a nd in the periventricular right frontal lobe white matter. No acute intracranial hemorrhage, acute in farction or abnormal extra axial fluid collection. There is mild scattered white matter hypoattenuati on consistent with chronic small vessel ischemic disease. Symmetric prominence of the sulci consisten t with moderate age-appropriate diffuse cerebral volume loss. Ventricles are normal and symmetric. N o mass/mass effect. Changes of bilateral intraocular lens replacement. The orbits, paranasal sinuses and mastoid air cells are normal. Severe osteoarthritis at the bilateral temporomandibular joints wit h postoperative changes at the right temporomandibular fossa. IMPRESSION: 1. No fracture or acute intracranial process. 2. Small old lacunar infarcts at the left internal capsule and right frontal lobe conn radiata. 3. Age-related changes including moderate diffuse on loss and mild scattered white matter hypoattenua tion consistent with chronic small vessel ischemic disease. Reviewed, dictated and finalized at location A. OR OPERATOR IMPRESSION: 1. No fracture or acute intracranial process. 2. Small old lacunar infarcts at the left internal capsule and right frontal lo be conn radiata. 3. Age-related changes including moderate diffuse on loss and mild scattered wh ite matter hypoattenuation consistent with chronic small vessel ischemic diseas e.
== END 2022-12-18 15:28 | disposition home or self-care (01) ==
PROVIDERS: PCP Internal Medicine; Visit Provider Nurse Practitioner
DX: R55 Syncope and collapse (principal)
CPT/HCPCS: 70450

== ENCOUNTER 2022-12-29 11:26 | Outpatient (CLI) | payer MEDICARE, SELFPAY ==
--- NOTE | ~2022-12-29 | XR_ITS ---
EXAMINATION: XR foot RT min 3V DATE: 12/29/2022 11:47 INDICATION: Right foot pain TECHNIQUE: Dorsoplantar, lateral, and 2 oblique views of the right foot were obtained. COMPARISON: 06/15/2017 FINDINGS: There is no fracture. There is mild to moderate osteoarthritis of interphalangeal joints as well as at the first metatarsophalangeal joint. The soft tissues are unremarkable. There appear to b e boutonniere deformities of the second and third toes. IMPRESSION: 1. Polyarticular osteoarthritis. Reviewed, dictated and finalized at location B. NESS ADMINISTRATION PROGRAM CHAIR
== END 2022-12-29 11:27 ==
PROVIDERS: PCP Internal Medicine; Visit Provider Nurse Practitioner
DX: M19.071 Primary osteoarthritis, right ankle and foot (principal)
CPT/HCPCS: 73630

== ENCOUNTER 2023-05-07 18:25 | Emergency (ER) | payer MEDICARE, MEDICAID, SELFPAY ==
--- NOTE | ~2023-05-07 | CT_ITS ---
EXAMINATION: CT brain wo con DATE: 05/07/2023 19:20 INDICATION: head injury . TECHNIQUE: Computed tomography (CT) of the head was performed without intravenous contrast. The mA wa s adjusted according to patient size. Iterative reconstruction technique was employed. The dose-lengt h product was 605.33 mGy-cm. COMPARISON: 12/18/2022. FINDINGS: No acute intracranial hemorrhage or extra-axial fluid collection. No hydrocephalus, mass, or herniation. No acute ischemic infarct. Unremarkable dural venous sinus attenuation. No acute osseous abnormality. The aerated spaces are clear. Mild atrophy and chronic white matter change. Atherosclerotic intracranial calcification. Bilateral l ens replacements. Old left basal ganglia lacunar and bilateral old focal periventricular infarcts. Ce rclage wires at the right temporomandibular fossa. IMPRESSION: No acute intracranial process. Reviewed, dictated and finalized at location K.
[2023-05-07 18:32] VITALS: BP 98/49; PULSE 85; RESP 17; TEMP 36.9; O2SAT 94
[2023-05-07 19:08] VITALS: BP 107/52; PULSE 85; RESP 18; O2SAT 95
--- NOTE | 2023-05-07 20:08 | ED.FALL ---
HPI - Fall General Chief Complaint: Fall Stated Complaint: fall/ams Time Seen by Provider: 05/07/23 18:55 History of Present Illness HPI Narrative: 78-year-old female presented the emergency department for evaluation after having a ground-level fall. Patient states that she stumbled and struck her head but denies any loss of consciousness. Patient is not on any blood thinners. Patient does have a small laceration to her right restorationist, hemostasis was achieved upon arrival to the ED. 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, degenerative Back pain CKD (chronic kidney disease) Depression History of multiple strokes Hyperglycemia Hypertension Insomnia Overdose of antidepressant Positive colorectal cancer screening using Cologuard test Surgical History Surgical History H/O: hysterectomy Family History Family History Sibling Pancreatic cancer Father Family history of lung cancer Other Family history of cardiovascular disease Social History Social History Social History: Caffeine-soda Smoking status: Former smoker Smoking end date: 11/19/72 Alcohol intake: current Drinks per week: 2 Alcohol use details: Pt drinks occasionally. Substance use: never Substance use type: does not use Lack of Transportation: No Lack of Food: Never True Current Housing: I Have Housing Concerned About Future Housing: No Difficulty Paying Gas/Electric Bills: No Difficulty Paying for Meds: No Currently Unemployed: No Education: High School Diploma/GED Difficulty w/ Childcare or Family Care: No Living arrangements: alone Spiritual care concerns: No Exam Narrative: APPEARANCE: Well appearing, no pain, no distress, well-nourished. HEAD: normocephalic, laceration to right eyebrow. EYES: PERRLA/EOMI, conjunctivae clear. NOSE: Normal no drainage NECK: Supple. No adenopathy, no masses. RESPIRATORY: Airway patent, respirations nonlabored. Clear to auscultation bilaterally, no rales, rhonchi, wheezing. CARDIOVASCULAR: Regular rate and rhythm without murmurs rubs or gallops. ABDOMINAL: Soft, nontender, nondistended, normal bowel sounds MUSCULOSKELETAL: Moves all extremities. Strength/ROM intact, No edema, No calf tenderness. NEURO: Alert. Cranial nerves II through XII intact. SKIN: Warm, dry. Normal Color Course Course Emergency Course: 78-year-old female presented the emergency department for evaluation after having a ground-level fall. Laceration was repaired as described in the procedure note. Head CT was reviewed. Head CT showed no acute intracranial normality. Patient is back to her baseline. Patient was updated on the results of her work-up. All questions concerns were addressed. Patient was able to ambulate at her baseline. Patient was well-appearing at time of discharge. Vital Signs Vital signs: Vital Signs Temperature 98.5 F 05/07/23 18:32 Pulse Rate 85 05/07/23 18:32 Respiratory Rate 17 05/07/23 18:32 Blood Pressure 98/49 L 05/07/23 18:32 Pulse Oximetry 94 05/07/23 18:32 Oxygen Delivery Room Air 05/07/23 18:32 Temperature 98.5 F 05/07/23 18:32 Pulse Rate 87 05/07/23 22:20 Respiratory Rate 16 05/07/23 22:20 Blood Pressure 102/55 L 05/07/23 22:20 Pulse O
[2023-05-07 22:20] VITALS: BP 102/55; PULSE 87; RESP 16; O2SAT 95
== END 2023-05-07 22:24 ==
PROVIDERS: Emergency Provider Emergency Medicine; PCP Internal Medicine
DX: S01.01XA Laceration without foreign body of scalp, initial encounter (principal); I12.9 Hypertensive chronic kidney disease with stage 1 through stage 4 chronic kidney disease, or unspecified chronic kidney disease; N18.9 Chronic kidney disease, unspecified; M19.079 Primary osteoarthritis, unspecified ankle and foot; Z86.73 Personal history of transient ischemic attack (TIA), and cerebral infarction without residual deficits; Z90.710 Acquired absence of both cervix and uterus; Z87.891 Personal history of nicotine dependence; W01.0XXA Fall on same level from slipping, tripping and stumbling without subsequent striking against object, initial encounter
CPT/HCPCS: 70450; 99284

== ENCOUNTER → 2023-05-17 15:00 | Outpatient (CLI) | payer MEDICARE, SELFPAY ==
--- NOTE | ~2023-05-17 | XR_ITS ---
EXAM: XR hand LT min 3V DATE: 05/17/2023 15:14 HISTORY: fall 1 week ago pain distal 3rd finger . COMPARISON: None available. FINDINGS: Partially visualized screw and plate fixation hardware of the distal radius. Decreased min eralization. No fracture or dislocation. No lytic or blastic lesion. Scattered arthritic changes, typ ical of osteoarthritis, most pronounced at the trapeziometacarpal joint and DIP joints of the third a nd fifth digits. No erosion or periosteal change. Soft tissues within normal limits. IMPRESSION: No acute osseous finding. Reviewed, dictated and finalized at location K. IMPRESSION: No acute osseous finding.
== END ==
PROVIDERS: PCP Nurse Practitioner; Visit Provider Nurse Practitioner
DX: M79.645 Pain in left finger(s) (principal)
CPT/HCPCS: 73130

== ENCOUNTER 2023-05-31 14:30 | Outpatient (CLI) | payer MEDICARE, SELFPAY ==
[2023-05-31 15:06] LABS: Basophils Absolute Auto 0.1 K/mm3 (0.0-0.1); Basophils Percent Auto 0.6 % (0.2-1.2); Eosinophils Absolute Auto 0.1 K/mm3 (0-0.3); Eosinophils Percent Auto 1.1 % (0-4.4); Hematocrit 39.4 % (37.0-47.0); Hemoglobin 12.6 g/dL (12.0-15.0); Immature Granulocyte Absolute 0.04 K/mm3 (0.00-0.031); Immature Granulocyte Percent A 0.4 % (0-0.5); Lymphocytes Absolute Auto 1.42 K/mm3 (0.9-3.2); Lymphocytes Percent Auto 15.3 % (18.3-44.2); Mean Corpuscular Hemoglobin 30.3 pg (26-34); Mean Corpuscular Volume 94.7 fl (80-100); Mean Platelet Volume 12.2 fl (7.4-10.4); Monocytes Absolute Auto 0.8 K/mm3 (0.1-0.6); Monocytes Percent Auto 8.1 % (2.6-8.5); Neutrophils Absolute Auto 6.9 K/mm3 (1.3-6.7); Neutrophils Percent Auto 74.5 % (45.5-73.1); Platelet Count Result 241 k/mm3 (150-375); Red Blood Count 4.16 M/mm3 (4.2-5.4); White Blood Count 9.3 K/mm3 (4.5-10.0)
[2023-05-31 15:49] LABS: Erythrocyte Sedimentation Rate 14 mm/hr (0-20)
[2023-05-31 16:14] LABS: Uric Acid 9.1 mg/dL (2.5-7.5)
[2023-05-31 16:55] LABS: Rheumatoid Factor < 12.0 IU/ML (<12)
[2023-06-03 17:38] LABS: ANA Cascade Screen Negative (Negative)
== END 2023-05-31 14:31 | disposition home or self-care (01) ==
LOC: ANHLAB 14:31
PROVIDERS: PCP Nurse Practitioner; Visit Provider Nurse Practitioner
DX: M79.645 Pain in left finger(s) (principal)
CPT/HCPCS: 36415; 84550; 85025; 85652; 86038; 86430

== ENCOUNTER 2023-06-20 08:16 | Outpatient (CLI) | payer MEDICARE, MEDICAID, SELFPAY ==
--- NOTE | ~2023-06-20 | XR_ITS ---
EXAMINATION: XR finger 3rd LT min 2V DATE: 06/20/2023 08:42 INDICATION: Left middle finger injury TECHNIQUE: Dorsal palmar, lateral and 2 oblique views of the left third digit were obtained COMPARISON: Left hand radiographs dated 05/17/2023 FINDINGS: There is prominent soft tissue swelling about the left third distal interphalangeal joint. There are severe joint space narrowing at the distal interphalangeal joint. Again seen are juxta articular eros ions at the radial aspect of the base of the distal phalanx and at both the ulnar and more prominentl y at the radial side of the head of the third middle phalanx. No erosions demonstrated overhanging co rtical edges and there are thin sclerotic margins at the erosion at the head of the middle phalanx, a ppearance which raises suspicion for gout. There is additional polyarticular osteoarthritis, severe a t the fifth distal interphalangeal joint and moderate severity at the fourth distal interphalangeal j oint and triscaphe joint and first carpal metacarpal joint. Mild osteoarthritis at the wrist, the met acarpophalangeal joints and remaining interphalangeal joints. No acute fracture. Partially visualized lower plate and screw fixation at the distal radius presumably for an old healed fracture. IMPRESSION: 1. Severe arthritis at the left third distal interphalangeal joint with prominent juxta articular ero sions. Given the appearance and distribution at a single distal interphalangeal joint would favor top haceous gout and secondary osteoarthritis over septic arthritis or other inflammatory arthritis. Reviewed, dictated and finalized at location A. IMPRESSION: 1. Severe arthritis at the left third distal interphalangeal joint with promine nt juxta articular erosions. Given the appearance and distribution at a single distal interphalangeal joint would favor tophaceous gout and secondary osteoart hritis over septic arthritis or other inflammatory arthritis.
== END 2023-06-20 08:17 | disposition home or self-care (01) ==
PROVIDERS: PCP Internal Medicine; Visit Provider Plastic Surgery
DX: M19.042 Primary osteoarthritis, left hand (principal)
CPT/HCPCS: 73140

== ENCOUNTER 2023-09-07 10:43 | Outpatient (CLI) | payer MEDICARE, MEDICAID, SELFPAY ==
--- NOTE | 2023-09-07 11:11 | ECG_ITS ---
Measurements Intervals [place] Rate: 60 P: -9 MA: 150 QRS: -2 QRSD: 88 T: 2 QT: 426 QTc: 427 Interpretive Statements SINUS RHYTHM NO PREVIOUS ECG AVAILABLE FOR COMPARISON Electronically Signed On 09-07-2023 13:36:06 CDT by Marlee Soto MD
[2023-09-07 11:48] LABS: Anion Gap 7 mmol/L (8-16); Blood Urea Nitrogen 24 mg/dL (7-17); Calcium 9.3 mg/dL (8.4-10.2); Carbon Dioxide 28 mmol/L (22-30); Chloride 100 mmol/L (98-107); Estimated Glomerular Filt Rate 33; Glucose 108 mg/dL (65-110); Potassium 4.3 mmol/L (3.4-5.0); Sodium 135 mmol/L (137-145)
[2023-09-07 11:55] LABS: INR 0.9; Prothrombin Time 12.8 Seconds (11.1-14.7)
[2023-09-07 11:56] LABS: Partial Thromboplastin Time 26.5 SECONDS (22.3-36.8)
== END 2023-09-07 10:44 | disposition home or self-care (01) ==
LOC: ANHSURGERY 10:50
PROVIDERS: Anesthesiology; PCP Internal Medicine; Visit Provider Plastic Surgery
DX: I12.9 Hypertensive chronic kidney disease with stage 1 through stage 4 chronic kidney disease, or unspecified chronic kidney disease (principal); N18.32 Chronic kidney disease, stage 3b; Z01.818 Encounter for other preprocedural examination
CPT/HCPCS: 36415; 80048; 85610; 85730; 93005

== ENCOUNTER 2023-09-11 01:29 | Day surgery (SDC) | payer MEDICARE, MEDICAID, SELFPAY ==
--- NOTE | 2023-09-05 12:31 | PC.NURSE ---
Report to the Outpatient Waiting Room, entrance under the green pavilion located off [facility], at time 0900 on date __09/11/23 . Planned Procedure Time: __1100 . Time changes happen often and if your time is changed the preop area will call you the afternoon before. - You and your visitor will be asked to self-screen and do not enter if you have any COVID symptoms. - A mask is optional within the hospital at this time. NOTHING TO EAT OR DRINK 8 HOURS PRIOR TO SURGERY Take the following medications with a SIP of water the morning of surgery: __AMLODIPINE,FLUOXETINE DO NOT STOP ANY OF YOUR OTHER PRESCRIPTION MEDICATIONS PRIOR TO SURGERY ?EXCEPT THE FOLLOWING Medications to discontinue per physician ___HOLD ASPIRIN PER DR AGUAYO, HOLD BIOTIN 3 DAYS PRE OP .LAST DOSE 09/07/23 Please no make-up, nail zambian, hairspray, perfume, deodorant, or body powder the day of surgery. No jewelry (including any body piercings) or valuables the day of surgery, leave them at home. Please take a shower or bath the night before, or the morning of, surgery with an antibacterial soap. Wear comfortable, loose fitting clothing. Children are encouraged to wear pajamas. - Jewelry must be removed prior to entering the operating room. Rings and piercings that are not removed may be cut off. - The hospital will not accept responsibility for valuables. - Please leave all valuables, including medications, at home the day of surgery. If you are going home after surgery, a licensed cat driver must drive you home. - NO public transportation without another adult if you receive anesthesia. - We recommend that an adult stay with you for 24 hours following discharge. - We also recommend that you do not drive, make important decision, drink alcoholic beverages, or take any drugs that were not prescribed by your health care provider for at least 24 hours after your discharge time. For Pediatric surgeries, we recommend two adults accompany the child home. Follow any additional instructions given to you from your surgeon. If you or anyone in your household have experienced Covid symptoms in the past week, please notify your surgeon or the nurse liaison at the phone number below for possible testing. instructions FAXED TO CHARLENE ALVAREZ and asked if any additional questions and then verbalized understanding. INSTRUCTIONS GIVEN TO BROTHER KAYLEN Patient advised to call surgeon office or pre surgery nurse liaison [phone] if any additional questions.
[2023-09-05 12:37] VITALS: BMI 26.5
--- NOTE | 2023-09-10 13:42 | WPDANESEPPF ---
Anes - Initial Pre Proc Eval Procedure: Operation Date: 09/11/23 11:00 Proposed Procedures p Left Middle Finger Distal Interphalangeal Joint Fusion, Possible Excision /Curettage Bone Cyst - Jairo Katz MD Date/Time: 09/10/23 13:42 Surgeon: Jairo Katz MD Pre Op Diagnosis: displaced fx of distal phalanx ,primary oa L hand Patient Data Age: 78 Gender: F Height: 1.6 m Weight: 68.05 kg Allergies Allergy/AdvReac Type Severity Reaction Status Date / Time Sulfa (Sulfonamide Allergy Intermediate Hives Verified 09/11/23 09:53 Antibiotics) Home Medications Medication Instructions Recorded Confirmed Type biotin 5,000 mcg sublingual tablet 5,000 mcg sublingual DAILY 09/06/20 09/05/23 History triamterene 37.5 1 tablet PO QAM #90 tabs 03/06/22 09/05/23 Rx mg-hydrochlorothiazide 25 mg tablet fluoxetine 40 mg capsule (Prozac) 40 mg PO DAILY #90 caps 03/29/22 09/11/23 Rx aspirin 81 mg tablet,delayed 81 mg PO DAILY #90 tabs 11/24/22 09/05/23 Rx release (Adult Low Dose Aspirin) amlodipine 5 mg tablet 5 mg PO DAILY #90 tabs 03/05/23 09/11/23 Rx atorvastatin 10 mg tablet See Rx Instructions .Route 06/27/23 09/05/23 Rx .COMPLEX #90 tabs trazodone 100 mg tablet See Rx Instructions .Route 07/05/23 09/05/23 Rx .COMPLEX #90 tabs oxybutynin chloride 10 mg 10 mg PO HS 09/05/23 09/05/23 History tablet,extended release 24 hr Patient hx anesthesia problems: none Family hx anesthesia problems: none Results Review: All pre-operative results and documents have been reviewed as part of the pre-operative evaluation. FOR[facility]LY [facility] Past Medical History Medical History (Updated 09/10/23 @ 13:43 by Twin Mehta DO) Anemia Anxiety 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, degenerative Back pain CKD (chronic kidney disease) Depression GERD (gastroesophageal reflux disease) History of multiple strokes Hyperglycemia Hypertension Insomnia Overdose of antidepressant Positive colorectal cancer screening using Cologuard test Surgical History Surgical History H/O: hysterectomy Family History Family History Sibling Pancreatic cancer Father Family history of lung cancer Other Family history of cardiovascular disease Social History Social History Social History: Caffeine-soda Smoking packs per day: 1 Smoking cigarettes per day: 20.0 Years smoked: 2 Smoking pack-years: 2.00 Smoking status: Former smoker Tobacco type: cigarettes Smoking end date: 11/19/72 Alcohol intake: former Substance use: never Substance use type: does not use Current Housing: Decline to Answer Concerned About Future Housing: Decline to Answer Difficulty Paying Gas/Electric Bills: Decline to Answer Difficulty Paying for Meds: Decline to Answer Currently Unemployed: Decline to Answer Education: Decline to Answer Difficulty w/ Childcare or Family Care: Decline to Answer Living arrangements: assisted living Spiritual care concerns: No Anes - Eval Final PreProcedure Day of Procedure 09/10/23 13:42 Patient weight: overweight Heart: regular rate and rhythm Lungs: clear to auscultation Airway: Mallampati scale class II Neurological: alert and oriented Last oral intake: >/= 8 hours ASA classification: III Emergent: no Anesthetic plan: proceed Anesthesia type and monitoring: general LMA and standard monitoring Results Review: All pre-operative results and documents have been reviewed as part of the pre-operative evaluation. Informed Consent: The patient's anesthetic plan and its attendant risks and benefits were discussed with the patient/family/POA. Questions were solicited and answers provided to the satisfaction of the patient/family/POA.
[2023-09-11] VITALS (8 sets, daily range): BP systolic 116–155; BP diastolic 45–87; PULSE 77–93; RESP 10–16; TEMP 36.1–37.6; O2SAT 92–99
--- NOTE | ~2023-09-11 | XR_ITS ---
XR surgery orthopedic Procedure: Left third finger joint effusion TECHNIQUE: Fluoroscopy used during left third finger joint fusion performed by [Jairo metz MD] on 09/11/2023. 17 seconds of fluoroscopy time with 4 fluoroscopy spot fluoroscopic image im ages captured. FINDINGS: Correlate with procedure note. IMPRESSION: Fluoroscopy used during Left third finger joint effusion. Reviewed, dictated and finalized at location L.
--- NOTE | 2023-09-11 08:27 | WPDHPUPDATE1 ---
History and Physical Update Update Date/Time: 09/11/23 08:27 Patient seen and examined in pre-operative holding area. No interval change in medical history or symptoms. Continues to desire to proceed with left middle finger dipjoint fusion and possible bone cyst curettage.. Reviewed proceudre, post-op expectations and risks including but not limited to bleeding, infection, injury to tendon/nerve/vessel, decreased hand function, stiffness, RSD, no change or worsening of symptoms, malunion, nonunion, hardware complications. . Patient stated understanding and signed the consent form wishing to proceed.
[2023-09-11] MEDS: LACTATED RINGERS 1,000 ML 30 ML IV CONT (09:30)
--- NOTE | 2023-09-11 10:42 | PM.HPGS ---
History of Present Illness History of Present Illness Consent: Risks, benefits, and alternatives have been discussed and questions answered. Patient agrees to proceed with procedure. Chief complaint: displaced fx of distal phalanx ,primary oa L hand Narrative: Elle Corrigan is a 78 year old female here for L MF dipj fusion needing H&P in addition to the updated. no changes in health per pt. see update Review of Systems Review of Systems: review of systems within normal limits for patient [facility] Past Medical History Medical History (Updated 09/10/23 @ 13:43 by Twin Mehta, ) Anemia Anxiety 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, degenerative Back pain CKD (chronic kidney disease) Depression GERD (gastroesophageal reflux disease) History of multiple strokes Hyperglycemia Hypertension Insomnia Overdose of antidepressant Positive colorectal cancer screening using Cologuard test Surgical History Surgical History H/O: hysterectomy Family History Family History Sibling Pancreatic cancer Father Family history of lung cancer Other Family history of cardiovascular disease Social History Social History Social History: Caffeine-soda Smoking packs per day: 1 Smoking cigarettes per day: 20.0 Years smoked: 2 Smoking pack-years: 2.00 Smoking status: Former smoker Tobacco type: cigarettes Smoking end date: 11/19/72 Alcohol intake: former Substance use: never Substance use type: does not use Current Housing: Decline to Answer Concerned About Future Housing: Decline to Answer Difficulty Paying Gas/Electric Bills: Decline to Answer Difficulty Paying for Meds: Decline to Answer Currently Unemployed: Decline to Answer Education: Decline to Answer Difficulty w/ Childcare or Family Care: Decline to Answer Living arrangements: assisted living Spiritual care concerns: No Meds Home Medications and Allergies Home Medications Medication Instructions Recorded Confirmed Type biotin 5,000 mcg sublingual tablet 5,000 mcg sublingual DAILY 09/06/20 09/05/23 History triamterene 37.5 1 tablet PO QAM #90 tabs 03/06/22 09/05/23 Rx mg-hydrochlorothiazide 25 mg tablet fluoxetine 40 mg capsule (Prozac) 40 mg PO DAILY #90 caps 03/29/22 09/11/23 Rx aspirin 81 mg tablet,delayed 81 mg PO DAILY #90 tabs 11/24/22 09/05/23 Rx release (Adult Low Dose Aspirin) amlodipine 5 mg tablet 5 mg PO DAILY #90 tabs 03/05/23 09/11/23 Rx atorvastatin 10 mg tablet See Rx Instructions .Route 06/27/23 09/05/23 Rx .COMPLEX #90 tabs trazodone 100 mg tablet See Rx Instructions .Route 07/05/23 09/05/23 Rx .COMPLEX #90 tabs oxybutynin chloride 10 mg 10 mg PO HS 09/05/23 09/05/23 History tablet,extended release 24 hr acetaminophen 300 mg-codeine 15 mg 1 tablet PO Q6H PRN pain #14 tabs 09/11/23 Rx tablet cephalexin 500 mg capsule 500 mg PO Q8H #21 caps 09/11/23 Rx Allergies Allergy/AdvReac Type Severity Reaction Status Date / Time Sulfa (Sulfonamide Allergy Intermediate Hives Verified 09/11/23 09:53 Antibiotics) Vital Signs Vital Signs - 24 hr 09/11/23 09:45 Temperature 36.1 C L Pulse Rate 80 Respiratory Rate 16 Blood Pressure 120/87 Pulse Oximetry 97 Oxygen Delivery Room Air Exam Narrative: same as previous note Chest: Other: ctab Cardio: Other: rrr Assessment and Plan Assessment and plan (1) Fracture of distal phalanx of finger of left hand: Code(s): S62.639A - Displaced fracture of distal phalanx of unspecified finger, initial encounter for closed fracture Status: Acute Plan 78yo female here for L MF dipj fusion. see update for same info
[2023-09-11] MEDS: ceFAZolin 2 GM/D5W 50 ML 2 GM/50 ML BAG IVPB (10:45)
[2023-09-11] MEDS: BACITRACIN OINTMENT 15 GM TUBE 1 APPLIC TOPICAL (10:49)
[2023-09-11] MEDS: BUPivacaine HCL 0.5% 10 ML AMP INFILTRATE (10:49)
--- NOTE | 2023-09-11 11:36 | P.OP_ITS ---
Procedure Note - Detailed Date of Procedure 09/11/23 Pre-op Diagnosis left middle finger dipjoint arthritis and cyst Post-op Diagnosis Same Procedure Performed left middle finger dipjoint fusion and curettage left middle phalanx cyst Surgeon Jairo Katz MD [employer] Kasey Richards PA-C Anesthesia General Description of Procedure Patient was seen in the preoperative holding area where the left middle finger was marked. Consent form was signed. She was taken back to the operating room on the stretcher in the supine position time-out was performed with anaesthesia surgeon and staff agreeing on patient's name site of surgery performed. SCDs were placed on the lower extremities and inflated. Antibiotics given IV. Tourniquet was placed in the left upper extremity was a prevent adhesions from fashion. After general anesthesia was administered the left upper extremity is protruded usual sterile fashion. The left upper extremity was exsanguinated with an Esmarch bandage and tourniquet inflated to 250 mmHg. I proceeded with making an H style incision over the dorsal left middle finger DIP joint through skin and through dermis with a 15 blade scalpel. I released the extensor digitorum communis tendon from the periosteum on the distal phalanx. I performed capsulotomy and released the collateral ligaments. Now able to visualize the articular surfaces of proceeding with a rongeur until cancellous bone was identified. Patient was noted to have a cyst on the radial aspect of the middle phalanx. With rongeur exposing the cortex I was able to curette out this cystic lesion. The articular surface was sent for pathology as well as the contents of the cyst. Irrigated with normal saline resection was verified on fluoroscopy and there was a good coaptation between the 2 the cortical surfaces and proceeded with placing the 3 5 K-wire in retrograde fashion from the eponychium into the middle phalanx across the PIP joint wire placement was verified on fluoroscopy with multiple views. The length of the wire from distal and middle phalanx was measured and w e decided to use a 36 mm Arthrex 2.5 mm diameter compression screw a 15 blade scalpel to make small incision in the skin around the K-wire entry site of the eponychium and spread down the periosteum. I then proceeded with drilling with live fluoroscopy towards the proximal cortex of the middle phalanx. The drill was removed and then the 36 mm screw was placed this was verified with fluoroscopy. There was both radiographic and visual compression of the joint space. There is good alignment of the phalanges. There is no rotation. The K- wire was removed. Irrigated with normal saline I debrided and excised to parts of the extensor tendon which appeared to be tophaceous in nature and diseased after further irrigation with normal saline I repaired the extensor tendon to distal phalanx periosteum and capsule with 5-0 Vicryl suture. Skin was closed with 5 0 chromic A dressing of Xeroform 4 x 4 Dorian and splint was then applied secured with an Christian bandage. The patient was awakened from anesthesia and transferred to the recovery room in stable condition. Complications of the procedure: none Estimated blood loss: 1 cc Disposition: Patient tolerated the procedure well only going later today. Kasey Richards PA-C was essential for positioning, retraction, fluoroscopy, closure and dressing placement. Implants arthrex 36mm headless compression screw G Billing Surgery - Charge Forward: Surgery Billing ([id number] and [id number]. Kasey Richards bills [id number] abd [id number])
--- NOTE | 2023-09-11 12:13 | SUR.PHASEI ---
1213: Simple mask removed.
== END 2023-09-11 13:26 | disposition home or self-care (01) ==
PROVIDERS: PCP Internal Medicine; Visit Provider Plastic Surgery
PROC: (CPT 25447; principal; 2023-09-11 11:00)
DX: S62.633A Displaced fracture of distal phalanx of left middle finger, initial encounter for closed fracture (principal); M11.842 Other specified crystal arthropathies, left hand; M19.042 Primary osteoarthritis, left hand; X58.XXXA Exposure to other specified factors, initial encounter; D64.9 Anemia, unspecified; I12.9 Hypertensive chronic kidney disease with stage 1 through stage 4 chronic kidney disease, or unspecified chronic kidney disease; N18.9 Chronic kidney disease, unspecified; F41.9 Anxiety disorder, unspecified; F32.A Depression, unspecified; K21.9 Gastro-esophageal reflux disease without esophagitis; R73.9 Hyperglycemia, unspecified; G47.00 Insomnia, unspecified; Z86.73 Personal history of transient ischemic attack (TIA), and cerebral infarction without residual deficits; Z80.1 Family history of malignant neoplasm of trachea, bronchus and lung; Z80.0 Family history of malignant neoplasm of digestive organs; Z87.891 Personal history of nicotine dependence; Z79.82 Long term (current) use of aspirin
CPT/HCPCS: 26860; 26210; 36415; 80048; 85610; 85730; 88305; 88309; 88311; 93005; 99199; A9270; J0690; J2704; J3010; J7120

== ENCOUNTER 2023-09-21 10:51 | Outpatient (CLI) | payer MEDICARE, MEDICAID, SELFPAY | END 2023-09-21 10:52 | disposition home or self-care (01) | LOC: ANHAUDIO 10:52 | PROVIDERS: PCP Internal Medicine; Visit Provider Clinical Nurse Specialist | DX: H91.93 Unspecified hearing loss, bilateral (principal) | CPT/HCPCS: 92557; 92567 ==

== ENCOUNTER 2023-09-25 11:15 | Outpatient (CLI) | payer MEDICARE, MEDICAID, SELFPAY ==
--- NOTE | ~2023-09-25 | XR_ITS ---
EXAM: XR finger 3rd LT min 2V DATE: 09/25/2023 11:36 HISTORY: s/p L MF dipj fusion . COMPARISON: 06/20/2023. FINDINGS: Radiographic detail obscured by overlying cast material. Status post hardware fusion of th e third DIP joint. No hardware fracture or perihilar hardware lucency. Periarticular erosions at the third DIP joint, less well visualized in today's study. Persistent overlying soft tissue swelling. No definite new erosions. Incompletely visualized distal radial fixation hardware. IMPRESSION: Status post third DIP joint fusion. No radiographic evidence of procedure or hardware rel ated complication. Reviewed, dictated and finalized at location K. ON STAMPER IMPRESSION: Status post third DIP joint fusion. No radiographic evidence of pro cedure or hardware related complication.
== END 2023-09-25 11:16 | disposition home or self-care (01) ==
PROVIDERS: PCP Internal Medicine; Visit Provider Plastic Surgery
DX: M19.042 Primary osteoarthritis, left hand (principal); S62.639A Displaced fracture of distal phalanx of unspecified finger, initial encounter for closed fracture; X58.XXXA Exposure to other specified factors, initial encounter
CPT/HCPCS: 73140

== ENCOUNTER 2023-10-17 10:51 | Outpatient (CLI) | payer MEDICARE, MEDICAID, SELFPAY ==
--- NOTE | ~2023-10-17 | XR_ITS ---
EXAMINATION: XR finger 3rd LT min 2V DATE: 10/17/2023 11:35 INDICATION: Left hand third digit fusion. TECHNIQUE: 4 views of left hand third digit were obtained. COMPARISON: Left hand third digit radiographs 09/25/2023, 09/11/2023, 06/20/2023, left hand radiographs 05/17/2023 FINDINGS: Bone alignment is normal. There are changes of ankylosis procedure of third distal interpha langeal joint with a threaded screw. Erosions at third distal interphalangeal joint are stable from . No fracture. There is mild osteoarthritis of third proximal interphalangeal joint. IMPRESSION: 1. 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 Reviewed, dictated and finalized at location A. T ROCK HANGER
== END 2023-10-17 10:52 | disposition home or self-care (01) ==
PROVIDERS: PCP Internal Medicine; Visit Provider Plastic Surgery
DX: M19.042 Primary osteoarthritis, left hand (principal); S62.639A Displaced fracture of distal phalanx of unspecified finger, initial encounter for closed fracture; X58.XXXA Exposure to other specified factors, initial encounter
CPT/HCPCS: 73140

== ENCOUNTER 2024-03-24 08:59 | Outpatient (CLI) | payer MEDICARE, MEDICAID, SELFPAY ==
[2024-03-24 09:52] LABS: Albumin Level 4.1 g/dL (3.5-5.1); Anion Gap 8 mmol/L (4-12); Blood Urea Nitrogen 22 mg/dL (7-17); Calcium 9.7 mg/dL (8.4-10.2); Carbon Dioxide 27 mmol/L (22-30); Chloride 102 mmol/L (98-107); Estimated Glomerular Filt Rate 39; Glucose 115 mg/dL (65-110); Phosphorus 3.6 mg/dL (2.5-4.5); Potassium 3.9 mmol/L (3.4-5.0); Sodium 137 mmol/L (137-145)
[2024-03-24 10:04] LABS: Parathyroid Intact 98.7 pg/mL (7.5-53.5)
[2024-03-24 10:35] LABS: Vitamin D 25 Hydroxy 45.7 ng/mL
[2024-03-24 10:36] LABS: Creatinine Urine 92.9 mg/dL; Total Protein Urine Random 12 mg/dL; Ur Ttl Prot Creatinine Ratio 0.13 mg/mg (0-0.20)
== END 2024-03-24 09:00 | disposition home or self-care (01) ==
LOC: ANHLAB 09:02
PROVIDERS: PCP Internal Medicine; Visit Provider Internal Medicine Nephrology
DX: N25.81 Secondary hyperparathyroidism of renal origin (principal); E55.9 Vitamin D deficiency, unspecified; I12.9 Hypertensive chronic kidney disease with stage 1 through stage 4 chronic kidney disease, or unspecified chronic kidney disease; N18.32 Chronic kidney disease, stage 3b
CPT/HCPCS: 36415; 80069; 82306; 82570; 83970; 84156

== ENCOUNTER 2024-06-18 09:42 | Outpatient (CLI) | payer MEDICARE, MEDICAID, SELFPAY ==
[2024-06-18 10:02] LABS: Basophils Absolute Auto 0.1 K/mm3 (0.0-0.1); Basophils Percent Auto 0.7 % (0.2-1.2); Eosinophils Absolute Auto 0.1 K/mm3 (0-0.3); Hematocrit 37.7 % (37.0-47.0); Hemoglobin 12.1 g/dL (12.0-15.0); Immature Granulocyte Absolute 0.01 K/mm3 (0.00-0.031); Immature Granulocyte Percent A 0.1 % (0-0.5); Lymphocytes Absolute Auto 1.51 K/mm3 (0.9-3.2); Lymphocytes Percent Auto 21.9 % (18.3-44.2); Mean Corpuscular HGB Conc 32.1 g/dl (32-36); Mean Corpuscular Hemoglobin 29.6 pg (26-34); Mean Corpuscular Volume 92.2 fl (80-100); Mean Platelet Volume 11.9 fl (7.4-10.4); Monocytes Absolute Auto 0.6 K/mm3 (0.1-0.6); Monocytes Percent Auto 8.6 % (2.6-8.5); Neutrophils Absolute Auto 4.6 K/mm3 (1.3-6.7); Neutrophils Percent Auto 66.7 % (45.5-73.1); Platelet Count Result 210 k/mm3 (150-375); Red Blood Count 4.09 M/mm3 (4.2-5.4); Red Cell Distribution Width 13.7 % (11.5-14.5); White Blood Count 6.9 K/mm3 (4.5-10.0)
[2024-06-18 10:10] LABS: Alanine Aminotransferase 19 U/L (6-35); Alkaline Phosphatase 125 U/L (38-126); Anion Gap 9 mmol/L (4-12); Aspartate Amino Transferase 25 U/L (14-36); Bilirubin,Total 0.6 mg/dL (0.2-1.3); Blood Urea Nitrogen 23 mg/dL (7-17); Calcium 9.4 mg/dL (8.4-10.2); Carbon Dioxide 27 mmol/L (22-30); Chloride 98 mmol/L (98-107); Cholesterol 130 mg/dL (0-200); Estimated Glomerular Filt Rate 43; Glucose 94 mg/dL (65-110); HDL Direct 71 mg/dL; Sodium 134 mmol/L (137-145); Triglycerides 91 mg/dL (<150)
[2024-06-18 10:20] LABS: LDL Cholesterol Direct 41 mg/dL
== END 2024-06-18 09:43 | disposition home or self-care (01) ==
LOC: ANHLAB 09:44
PROVIDERS: PCP Internal Medicine; Visit Provider Nurse Practitioner
DX: I12.9 Hypertensive chronic kidney disease with stage 1 through stage 4 chronic kidney disease, or unspecified chronic kidney disease (principal); N18.9 Chronic kidney disease, unspecified; E78.5 Hyperlipidemia, unspecified
CPT/HCPCS: 36415; 80053; 80061; 85025

== ENCOUNTER 2024-07-02 18:32 | Emergency (ER) | payer MEDICARE, MEDICAID, SELFPAY ==
--- NOTE | ~2024-07-02 | CT_ITS ---
EXAMINATION: CT brain wo con DATE: 07/02/2024 19:37 INDICATION: Fall with head injury TECHNIQUE: Computed tomography (CT) of the head was performed without intravenous contrast. Sagittal and coronal reconstructions were performed. The mA was adjusted according to patient size. Iterative reconstruction technique was employed. The dose-length product was 756.67 mGy-cm. COMPARISON: head CT dated 05/07/2023 FINDINGS: No fracture. No acute intracranial hemorrhage, acute infarction or abnormal extra axial fluid collect ion. Unchanged small old lacunar infarcts at the left basal ganglia and in the bilateral frontal lobe conn radiata. There is mild scattered white matter hypoattenuation consistent with chronic small v essel ischemic disease. Symmetric prominence of the sulci and subarachnoid spaces overlying the conve xities consistent with moderate age-appropriate diffuse cerebral volume loss. Ventricles are normal a nd symmetric. No mass/mass effect. Small right mastoid effusion. Mild mucosal thickening in the left maxillary sinus. Changes of bilateral intraocular lens replacement. Severe bilateral temporal mandibu lar osteoarthritis with cerclage wires at the anterior right temporomandibular fossa. IMPRESSION: 1. Stable appearance of a few small old lacunar infarcts in the conn radiata and left basal ganglia . No fracture or acute intracranial process. 2. Age-related changes including moderate diffuse volume loss and mild scattered white matter hypoatt enuation consistent with chronic small vessel ischemic disease. Reviewed, dictated and finalized at location A. IMPRESSION: 1. Stable appearance of a few small old lacunar infarcts in the conn radiata and left basal ganglia. No fracture or acute intracranial process. 2. Age-related changes including moderate diffuse volume loss and mild scattere d white matter hypoattenuation consistent with chronic small vessel ischemic di sease.
--- NOTE | ~2024-07-02 | CT_ITS ---
EXAMINATION: CT cervical spine wo con DATE: 07/02/2024 19:37 INDICATION: Fall with head injury TECHNIQUE: Computed tomography (CT) of the cervical spine was performed without intravenous contrast. Automated exposure control and iterative reconstruction technique were employed. The dose-length pro duct was 756.67 mGy-cm. COMPARISON: None FINDINGS: Severe osteoarthritis at the atlantoaxial articulation. 1 mm anterolisthesis C3 on C4, 2.5 mm anterol isthesis C4 on C5 and 1.5 mm anterolisthesis C5 on C6. Vertebral body heights are normal. No fracture . Moderate disc height loss at C5-C6 and C6-C7. Mild disc height loss at C4-C5. Multilevel cervical u ncovertebral osteoarthritis, severe on the right at C5-C6, moderate bilaterally at C6-C7 and otherwis e mild. There is also multilevel bilateral severe facet osteoarthritis, left greater than right. Mini mal central canal stenosis at C4-C5 through C6-C7. There is also mild multilevel bilateral cervical n eural foraminal stenosis. Atherosclerotic calcific lesions at the bilateral carotid bulbs. Mild subse gmental atelectasis in the visualized upper lungs likely related to expiratory phase of imaging. IMPRESSION: 1. Moderate cervical spondylosis. No acute osseous abnormality. Reviewed, dictated and finalized at location A.
[2024-07-02 18:34] VITALS: BP 105/49; PULSE 72; RESP 18; TEMP 37.1; O2SAT 92
--- NOTE | 2024-07-02 18:56 | ECG_ITS ---
Test Date: 2024-07-02 19:11:59 Measurements Intervals [place] Rate: 69 P: 0 OK: 0 QRS: 13 QRSD: 98 T: 11 QT: 425 QTc: 456 Interpretive Statements JUNCTIONAL RHYTHM No previous ECG available for comparison Electronically Signed On 07-03-2024 09:53:44 CDT by Imani Villatoro M.D.
[2024-07-02 19:22] VITALS: BP 96/52; PULSE 74; RESP 18; TEMP 37; O2SAT 93
--- NOTE | 2024-07-02 19:24 | ED.HEATRA ---
HPI - Head Injury General Chief complaint: Head Injury Stated complaint: Fall backward, hit head Time Seen by Provider: 07/02/24 18:37 Source: patient Mode of arrival: EMS Limitations: no limitations History of Present Illness HPI Narrative: patient is an 79-year-old female who presents to the ED via EMS with report of a fall. Patient is resident of [facility]. Patient reports she was walking with her laundry back to her room tonight when she tripped and fell. She fell backwards hitting her head. Denies LOC. Denies dizziness or lightheadedness prior to the fall or since. Denies syncope. Denies any areas of pain. Initially refused EMS transport, but was advised to come. She takes an aspirin 81 mg daily. No other blood thinners. Alert & oriented x4. Related Data Home Medications Medication Instructions Recorded Confirmed biotin 5,000 mcg sublingual tablet 5,000 mcg sublingual DAILY 09/06/20 06/24/24 Allergies Allergy/AdvReac Type Severity Reaction Status Date / Time Sulfa (Sulfonamide Allergy Intermediate Hives Verified 06/24/24 09:33 Antibiotics) Review of Systems Review of Systems: All systems reviewed & are unremarkable except as noted in HPI. All systems reviewed & are unremarkable except as noted in HPI and below PMFSH Past Medical History Medical History Anemia Anxiety 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, degenerative Back pain CKD (chronic kidney disease) Depression GERD (gastroesophageal reflux disease) History of multiple strokes Hyperglycemia Hypertension Insomnia Overdose of antidepressant Positive colorectal cancer screening using Cologuard test Surgical History Surgical History H/O: hysterectomy Family History Family History Sibling Pancreatic cancer Father Family history of lung cancer Other Family history of cardiovascular disease Social History Social History Social History: Caffeine-soda Smoking packs per day: 1 Smoking cigarettes per day: 20.0 Years smoked: 2 Smoking pack-years: 2.00 Smoking status: Former smoker Tobacco type: cigarettes Smoking end date: 11/19/72 Alcohol intake: former Substance use: never Substance use type: does not use Current Housing: Decline to Answer Concerned About Future Housing: Decline to Answer Difficulty Paying Gas/Electric Bills: Decline to Answer Difficulty Paying for Meds: Decline to Answer Currently Unemployed: Decline to Answer Education: Decline to Answer Difficulty w/ Childcare or Family Care: Decline to Answer Living arrangements: assisted living Spiritual care concerns: No Exam Narrative: GENERAL: Elderly, well-nourished, non-toxic, in no acute distress. HEAD: Normocephalic, atraumatic. EYES: PERRL/EOMI, conjunctivae clear bilaterally. No nystagmus. ENT: MMs dry. NECK: Supple. No meningeal signs. No tenderness throughout midline spine. RESPIRATORY: Airway patent, respirations nonlabored. Clear to auscultation bilaterally, no rales, rhonchi, wheezing. CARDIOVASCULAR: Regular rate and rhythm without murmurs, rubs, or gallops. Peripheral pulses 2+ and equal bilaterally. MUSCULOSKELETAL: Moves all extremities. No gross deformities. SKIN: Warm, dry, normal color. No rashes. NEURO: A&O X3. NOATAK. Speech clear. Follows commands. CN II-XII intact. Sensation grossly intact. Steady gait. No ataxic movements. Strength 5/5 in upper and lower extremities bilaterally. Ogih-[id number] and [id number] testing intact bilaterally. No pronator drift. Equal tip tester strength bilaterally. PSYCHIATRIC: Appropriate mood and affect. Normal interaction. Course Vital Signs Vital signs: Vital Signs Temperature 98.7 F
[2024-07-02 19:44] LABS: Basophils Absolute Auto 0.1 K/mm3 (0.0-0.1); Basophils Percent Auto 0.7 % (0.2-1.2); Eosinophils Absolute Auto 0.1 K/mm3 (0-0.3); Eosinophils Percent Auto 1.1 % (0-4.4); Hematocrit 35.5 % (37.0-47.0); Hemoglobin 11.6 g/dL (12.0-15.0); Immature Granulocyte Absolute 0.02 K/mm3 (0.00-0.031); Immature Granulocyte Percent A 0.3 % (0-0.5); Lymphocytes Absolute Auto 1.19 K/mm3 (0.9-3.2); Lymphocytes Percent Auto 16.7 % (18.3-44.2); Mean Corpuscular HGB Conc 32.7 g/dl (32-36); Mean Corpuscular Hemoglobin 30.1 pg (26-34); Mean Corpuscular Volume 92.2 fl (80-100); Mean Platelet Volume 12.7 fl (7.4-10.4); Monocytes Absolute Auto 0.7 K/mm3 (0.1-0.6); Monocytes Percent Auto 9.6 % (2.6-8.5); Neutrophils Absolute Auto 5.1 K/mm3 (1.3-6.7); Neutrophils Percent Auto 71.6 % (45.5-73.1); Platelet Count Result 196 k/mm3 (150-375); Red Blood Count 3.85 M/mm3 (4.2-5.4); Red Cell Distribution Width 13.4 % (11.5-14.5); White Blood Count 7.1 K/mm3 (4.5-10.0)
[2024-07-02] MEDS: SODIUM CHLORIDE 0.9% IV 1,000 ML 999 ML IV CONT ×2 (19:58→21:13)
[2024-07-02 20:00] VITALS: BP 97/62; PULSE 59; RESP 18; TEMP 36.6; O2SAT 97
[2024-07-02 20:00] LABS: INR 0.9; Prothrombin Time 13.1 Seconds (11.1-14.7)
[2024-07-02 20:01] LABS: Partial Thromboplastin Time 27.5 Seconds (22.3-36.8)
[2024-07-02 20:05] LABS: Alanine Aminotransferase 14 U/L (6-35); Albumin Level 3.7 g/dL (3.5-5.1); Alkaline Phosphatase 121 U/L (38-126); Anion Gap 13 mmol/L (4-12); Aspartate Amino Transferase 23 U/L (14-36); Bilirubin,Total 0.3 mg/dL (0.2-1.3); Blood Urea Nitrogen 26 mg/dL (7-17); Calcium 8.8 mg/dL (8.4-10.2); Carbon Dioxide 20 mmol/L (22-30); Chloride 96 mmol/L (98-107); Estimated CRCL calculation 22 ml/min; Estimated Glomerular Filt Rate 31; Glucose 101 mg/dL (65-110); Magnesium 1.9 mg/dL (1.6-2.3); Potassium 3.9 mmol/L (3.4-5.0); Sodium 129 mmol/L (137-145)
[2024-07-02 20:16] LABS: Troponin I < 0.012 ng/mL (0.000-0.034)
[2024-07-02 21:00] VITALS: BP 125/60; PULSE 70; RESP 17; TEMP 37.1; O2SAT 96
[2024-07-02 21:38] LABS: Add Urine Microscopic? YES; Appearance Urine Clear (Clear); Bilirubin Urine Negative (Negative); Blood Urine Negative (Negative); Color Urine Yellow (Yellow); Glucose Urine UA Negative (Negative); Ketones Urine Negative (Negative); Leukocyte Esterase Ur 2+ LEU/UL (Negative); Nitrate Urine Positive (Negative); Protein Urine Negative (Negative); Specific Grav Ur 1.009 (1.001-1.035); Urobilinogen Urine 0.2 mg/dL (<2.0)
[2024-07-02 21:48] LABS: Bacteria Urine 4+ /hpf; Need Manual Microscopic Reviewed; RBC Urine 0-2 /hpf (0-2); Squamous Epithelial Cell Urine None Seen /hpf (Few); WBC Urine 51-100 /hpf (0-3)
[2024-07-02 22:55] VITALS: BP 132/58; O2SAT 94
[2024-07-02 23:02] VITALS: BP 126/56; O2SAT 93
[2024-07-02 23:31] LABS: Anion Gap 11 mmol/L (4-12); Blood Urea Nitrogen 21 mg/dL (7-17); Calcium 8.3 mg/dL (8.4-10.2); Carbon Dioxide 21 mmol/L (22-30); Chloride 100 mmol/L (98-107); Estimated CRCL calculation 27 ml/min; Estimated Glomerular Filt Rate 39; Glucose 95 mg/dL (65-110); Potassium 3.8 mmol/L (3.4-5.0); Sodium 132 mmol/L (137-145)
== END 2024-07-03 02:47 ==
PROVIDERS: Emergency Provider Physician Assistant; PCP Internal Medicine
DX: S09.90XA Unspecified injury of head, initial encounter (principal); N30.00 Acute cystitis without hematuria; I12.9 Hypertensive chronic kidney disease with stage 1 through stage 4 chronic kidney disease, or unspecified chronic kidney disease; N18.9 Chronic kidney disease, unspecified; D64.9 Anemia, unspecified; M19.079 Primary osteoarthritis, unspecified ankle and foot; Z87.891 Personal history of nicotine dependence; Z90.710 Acquired absence of both cervix and uterus; Z79.82 Long term (current) use of aspirin; M47.812 Spondylosis without myelopathy or radiculopathy, cervical region; W01.0XXA Fall on same level from slipping, tripping and stumbling without subsequent striking against object, initial encounter
CPT/HCPCS: 36415; 70450; 72125; 80048; 80053; 81001; 83735; 84484; 85025; 85610; 85730; 87077; 87086; 87088; 87186; 93005; 96361; 96365; 99284; J0696; J7030

== ENCOUNTER 2024-07-16 09:43 | Outpatient (CLI) | payer MEDICARE, MEDICAID, SELFPAY ==
[2024-07-16 10:47] LABS: Albumin Level 3.9 g/dL (3.5-5.1); Anion Gap 9 mmol/L (4-12); Blood Urea Nitrogen 27 mg/dL (7-17); Calcium 9.4 mg/dL (8.4-10.2); Carbon Dioxide 27 mmol/L (22-30); Chloride 102 mmol/L (98-107); Estimated Glomerular Filt Rate 39; Glucose 116 mg/dL (65-110); Phosphorus 3.8 mg/dL (2.5-4.5); Potassium 3.8 mmol/L (3.4-5.0); Sodium 138 mmol/L (137-145)
[2024-07-16 11:01] LABS: Total Protein Urine Random 8 mg/dL
== END 2024-07-16 09:44 | disposition home or self-care (01) ==
LOC: ANHLAB 09:48
PROVIDERS: PCP Internal Medicine; Visit Provider Internal Medicine Nephrology
DX: I12.9 Hypertensive chronic kidney disease with stage 1 through stage 4 chronic kidney disease, or unspecified chronic kidney disease (principal); N18.32 Chronic kidney disease, stage 3b
CPT/HCPCS: 36415; 80069; 82570; 84156

== ENCOUNTER 2024-12-09 13:23 | Outpatient (NON) | payer MEDICARE, MEDICAID, SELFPAY ==
--- OUTSIDE RECORDS SUMMARY | 2024-12-11 18:29 | XMS_ITS | Clinical Summary ---
Author Organization [facility] Address [address] [place] [address] Phone Care Team Providers Care Pattern Chart Writer Name Role Phone Bill Colin DO Primary Care Provider [phone] Allergies Active Allergy Reactions Criticality Noted Date Comments Erythromycin Rash Low 08/13/2019 Reaction: Rash, Sulfa Antibiotics Hives,Rash High 08/13/2019 Reaction: Rash, , Reaction: Hives, Sulfanilamide Hives,Rash Medium 08/13/2019 Reaction: Hives, Skin Rash, Medications Medication Sig Dispensed Refills Start Date End Date Status FLUoxetine (PROzac) 40 MG capsule TK 1 C PO QD 3 07/11/2019 Active traZODone (DESYREL) 100 MG tablet TK 1 T PO HS 3 07/11/2019 Active triamterene-hydroCHLOR Othiazide (MAXZIDE-25) 37.5-25 MG per tablet TK 1 T PO D 0 06/12/2019 Ac tive colchicine 0.6 MG tablet TK 1 T PO PRN FOR GOUT ATTACK 12/09/2019 Active Active Problems Problem Noted Date Diagnosed Date Dyslipidemia 10/10/2018 Recurrent major depressive disorder 10/10/2018 Chronic kidney disease Immunizations Name Administration Dates Next Due Influenza, Quadrivalent 08/19/2019 Influenza, Unspecified 10/01/2018 Pneumococcal Polysaccharide 04/08/2004, 6 Td 01/28/2003 Zoster 06/26/2007 Family History Medical History Relation Comments Lung cancer Father Relation Status Comments Father Social History Tobacco Use Types Packs/Day Years Used Date Smoking Tobacco: Former Smokeless Tobacco: Never Alcohol Use Standard Drinks/Week Comments Yes 0 (1 standard drink = 0.6 oz pur e alcohol) Sex and Gender Information Value Date Recorded Sex Assigned at Not on file Gender Identity Not on file Sexual Orientation Not on file Last Filed Vital Signs Vital Sign Reading Time Taken Comments Blood Pressure 136/80 01/26/2020 3:28 PM CDT Pulse - - Temperature 37 ??C (98.6 ??F) 01/26/2020 3:28 PM CDT Respiratory Rate 18 01/26/2020 3:28 PM CDT Oxygen Saturation - - Inhaled Oxygen Concentration - - Weight 76.7 kg (169 lb) 01/26/2020 3:28 PM CDT Height 157.5 cm (5' 2 ) 01/26/2020 3:28 PM CDT Body Mass Index 30.91 01/26/2020 3:28 PM CDT Plan of Treatment Health Maintenance Due Date Last Done Comments Pneumococcal PPSV23/PCV13 65 + Years / High and Highest Risk (3 of 5 - PCV) 04/08/2005 04/08/2004, 10/24/1996 Influenza Vaccine (#1) 2024 10/01/2018 Care Teams Pattern Chart Writer Relationship Specialty Start Date End Date Bill Colin DO [address] [place] [address] PCP - General Internal Medicine 07/22/19
--- OUTSIDE RECORDS SUMMARY | 2024-12-11 18:29 | XMS_ITS | Referral Summary ---
Author Organization [facility] Address [address] [facility] [place] [address] Care Team Providers Care Green Marketing Specialist Name Role Phone Unavailable Primary Care Provider Unavailabl e Source Comments [facility],non-owned Affiliates and Associated Physician Practices is amultiple site organization consisting of ambulatory clinics and hospital sitesin [place], [place], [place] and [place]. This disclosure is being madepursuant to the Care Everywhere program and may not contain all information available regarding this patient. Last updated 18.[facility] [employer] Social History Tobacco Use Types Packs/Day Years Used Date Smoking Tobacco: Never Assessed Sex and Gender Information Value Date Recorded Sex Assigned at Not on file Gender Identity Not on file Sexual Orientation Not on file Plan of Treatment Not on file
--- OUTSIDE RECORDS SUMMARY | 2024-12-11 18:29 | XMS_ITS | Clinical Summary ---
Author Organization [facility] Address [address] [place] [address]. 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 Gender Identity Not on file Sexual Orientation Not on file Plan of Treatment Health Maintenance Due Date Last Done Comments DTaP, Tdap and Td Vaccines ( 1 - Tdap) 1962 Zoster Vaccines (1 of 2) 1993 Dexa Scan (General) 2008 Pneumococcal Vaccine: 65+ Ye ars (1 of 1 - PCV) 2008 RSV Immunization or 60+ Years (1 - 1-dose 75+ series) 2018 COVID-19 Vaccine (2023-2 5 season) 2024 Influenza Adult (#1) 2024 Meningococcal Vaccine Aged Out No rafael terese eligible based on patient's age to complete this topic RSV Immunizations Under 20 Months Aged Out No longer eligible based on patient's age to complete this topic
--- OUTSIDE RECORDS SUMMARY | 2024-12-11 18:29 | XMS_ITS | Patient Health Summary ---
Author Organization [facility] Address [address] [facility] [place] [address] Care Team Providers Care Chemistry Department Chair Name Role Phone Unavailable Primary Care Provider Unavailabl e Note from [facility],non-owned Affiliates and Associated Physician Practices is amultiple site organization consisting of ambulatory clinics and hospital sitesin [place], [place] and [place]. This disclosure is being madepursuant to the Care Everywhere program and may not contain all information available regarding this patient. Last updated 18.[facility] Social History Tobacco Use Types Packs/Day Years Used Date Smoking Tobacco: Never Assessed Sex and Gender Information Value Date Recorded Sex Assigned at Not on file Gender Identity Not on file Sexual Orientation Not on file Procedures * DERMATOPATHOLOGY(Performed 06/28/2022) Results * DERMATOPATHOLOGY (06/28/2022 12:00 AM CDT) Case Report Dermatopathology Report ? Case: [id number] ? Authorizing Provider: ??Payam Blake MD ?Collected: ? 06/28/2022 12:00 AM ? Ordering Location: ? [facility] ?Received: ?06/29/2022 01:35 PM ? Pathologist: ? Alfredo Miller MD ? Specimen: ?Skin, right cheek lateral to ml fold ? 2 5:55 PM CDT DERMATOPATHOLOGY LABORATORY Final Diagnosis Specimen A. SKIN, right cheek lateral to ml fold: BASAL CELL CARCINOMA, NODULAR TYPE (C44.319) 2 5:55 PM CDT DERMATOPATHOLOGY LABORATORY Clinical History R/O BCC 5:55 PM CDT DERMATOPATHOLOGY LABORATORY Gross Description Specimen A: Received is one formalin filled container labeled with the patient's name and designated right cheek lateral to ml fold. The specimen consists of a shave biopsy measuring 9x9x2 mm. Jar 0. 5:55 PM CDT DERMATOPATHOLOGY LABORATORY Microscopic Description Specimen A. SKIN, right cheek lateral to ml fold: Within the dermis there are aggregates of basaloid cells with a high nuclear to cytoplasmic ratio and peripheral palisading. 2 5:55 PM CDT DERMATOPATHOLOGY LABORATORY Disclaimer An external and internal positive and negative controls are appropriate for the histochemical, immunohistochemical and immunofluorescence stain(s) in this case (if any), except where stated explicitly. The performance characteristics of the stain(s) cited in this report were developed and its performance characteristic determined by the Dermatopathology Laboratory at [facility], directed by Dr. Jean Miller. These tests need not be, and therefore are not, approved by the [place] Food and Drug Administration. The tests are used for clinical purposes. Billing Codes Specimen Charges Stain Charges 26889 1 2 5:55 PM CDT DERMATOPATHOLOGY LABORATORY Embedded Images 5:55 PM CDT DERMATOPATHOLOGY LABORATORY Pathology/Cytolog y TISSUE SPECIMEN FROM SKIN / Unknown 06/28/2022 06/29/2022 1:35 PM CDT Payam Blake MD LAB - PATHOLOGY/CYTO LOGY ORDERABLES Performing Organization Address City/State/[facility] Co de Phone Number DERMATOPATHOLOGY LABORATORY [facility] - Department of Dermatology [facility] [address] [place] [address], [address] [phone]
--- OUTSIDE RECORDS SUMMARY | 2024-12-11 18:29 | XMS_ITS | Encounter Summary ---
Author Organization [facility] Address [address] [facility] [place] [address] Care Team Providers Care Cook Syrup Maker Name Role Phone Unavailable Primary Care Provider Unavailabl e Encounter Details Date Type Department Care Team (Late st Contact Info) Description 06/29/2022 Lab Requisition [facility] [address] [facility] [place] [id number] Payam Blake MD [address] [place] [address] Social History Tobacco Use Types Packs/Day Years Used Date Smoking Tobacco: Never Assessed Sex and Gender Information Value Date Recorded Sex Assigned at Not on file Gender Identity Not on file Sexual Orientation Not on file documented as of this encounter Plan of Treatment Not on file documented as of this encounter Procedures Procedure Name Priority Date/Time Associated Diagnosis Comments DERMATOPATHOLOGY Routine 06/28/2022 12:0 0 AM CDT documented in this encounter Results * DERMATOPATHOLOGY (06/28/2022 12:00 AM CDT) Case Report Dermatopathology Report ? Case: [id number] ? Authorizing Provider: ??Payam Blake MD ?Collected: ? 06/28/2022 12:00 AM ? Ordering Location: ? [facility] ?Received: ?06/29/2022 01:35 PM ? Pathologist: ? Alfredo Miller MD ? Specimen: ?Skin, right cheek lateral to ml fold ? 2 5:55 PM CDT DERMATOPATHOLOGY LABORATORY Final Diagnosis Specimen A. SKIN, right cheek lateral to ml fold: BASAL CELL CARCINOMA, NODULAR TYPE (C44.319) 2 5:55 PM CDT DERMATOPATHOLOGY LABORATORY Clinical History R/O BCC 2 5:55 PM CDT DERMATOPATHOLOGY LABORATORY Gross Description [...] characteristic determined by the Dermatopathology Laboratory at [facility], directed by Dr. Jean Miller. These tests need not be, and therefore are not, approved by the [place] Food and Drug Administration. The tests are used for clinical purposes. Billing Codes Specimen Charges Stain Charges 47410 1 2 5:55 PM CDT DERMATOPATHOLOGY LABORATORY Embedded Images 2 5:55 PM CDT DERMATOPATHOLOGY LABORATORY Pathology/Cytolog y TISSUE SPECIMEN FROM SKIN / Unknown 06/28/2022 06/29/2022 1:35 PM CDT Payam Blake MD LAB - PATHOLOGY/CYTO LOGY ORDERABLES DERMATOPATHOLOGY LABORATORY [facility] - Department of Dermatology [facility] Medicine [address] [place] [address], [address] [phone] documented in this encounter Visit Diagnoses Not on filedocumented in this encounter
--- OUTSIDE RECORDS SUMMARY | 2024-12-11 18:29 | XMS_ITS | Clinical Summary ---
Author Organization [facility] Address [address] [facility] [place] [address] Care Team Providers Care Mobile Home Laborer Name Role Phone Unavailable Primary Care Provider Unavailabl e Source Comments [facility],non-owned Affiliates and Associated Physician Practices is amultiple site organization consisting of ambulatory clinics and hospital sitesin [place], [place], [place] and [place]. This disclosure is being madepursuant to the Care Everywhere program and may not contain all information available regarding this patient. Last updated 18.[facility] [employer] Social History Tobacco Use Types Packs/Day Years Used Date Smoking Tobacco: Never Assessed Sex and Gender Information Value Date Recorded Sex Assigned at Not on file Gender Identity Not on file Sexual Orientation Not on file Plan of Treatment Health Maintenance Due Date Last Done Comments BONE DENSITY TESTING 1943 DTAP/TDAP/TD VACCINES (1 - Tdap) 1962 PNEUMOCOCCAL VACCINE 50+ (1 of 1 - PCV) 1993 ZOSTER VACCINE (1 of 2) 1993 Respiratory Syncytial Virus (RSV) Vaccine Pt: or over 60 yrs (1 - 1-dose 75+ series) 2018 COVID-19 VACCINE (2023-2 5 season) 2024 INFLUENZA VACCINE (#1) 2024 DEPRESSION SCREENING 11/19/2024 MEDICARE AWV ? CALENDAR YEAR 2024 HEPATITIS B VACCINE Aged Out No longe r eligible based on patient's age to complete this topic HIB VACCINE Aged Out No longer eligi ble based on patient's age to complete this topic HPV VACCINE Aged Out No longer eligi ble based on patient's age to complete this topic MENINGOCOCCAL (Group B) VACCINE Aged Out No longer eligible based on patient's age to complete this topic MENINGOCOCCAL VACCINE Aged Out No rafael terese eligible based on patient's age to complete this topic
== END 2024-12-09 13:24 | disposition home or self-care (01) ==
LOC: ANHGOSHLAB 13:25
PROVIDERS: PCP Internal Medicine; Visit Provider Nurse Practitioner
DX: R32 Unspecified urinary incontinence (principal)
CPT/HCPCS: 87086; 87186

== ENCOUNTER 2025-01-16 09:03 | Outpatient (CLI) | payer MEDICARE, OTHER, SELFPAY ==
[2025-01-16 10:03] LABS: Anion Gap 11 mmol/L (4-12); Blood Urea Nitrogen 27 mg/dL (7-17); Calcium 9.8 mg/dL (8.4-10.2); Carbon Dioxide 23 mmol/L (22-30); Chloride 106 mmol/L (98-107); Estimated Glomerular Filt Rate 45; Glucose 125 mg/dL (65-110); Phosphorus 3.4 mg/dL (2.5-4.5); Sodium 140 mmol/L (137-145)
[2025-01-16 10:11] LABS: Parathyroid Intact 67.1 pg/mL (14.5-75.2)
[2025-01-16 10:26] LABS: Vitamin D 25 Hydroxy 36.9 ng/mL
[2025-01-16 10:42] LABS: Creatinine Urine 118.8 mg/dL; Total Protein Urine Random 10 mg/dL; Ur Ttl Prot Creatinine Ratio 0.08 mg/mg (0-0.20)
== END 2025-01-16 09:04 | disposition home or self-care (01) ==
LOC: ANHLAB 09:04
PROVIDERS: PCP Internal Medicine; Visit Provider Internal Medicine Nephrology
DX: I12.9 Hypertensive chronic kidney disease with stage 1 through stage 4 chronic kidney disease, or unspecified chronic kidney disease (principal); N18.32 Chronic kidney disease, stage 3b; N25.81 Secondary hyperparathyroidism of renal origin; E55.9 Vitamin D deficiency, unspecified
CPT/HCPCS: 36415; 80069; 82306; 82570; 83970; 84156

== ENCOUNTER 2025-02-09 15:02 | Outpatient (CLI) | payer MEDICARE, MEDICAID, SELFPAY ==
--- OUTSIDE RECORDS SUMMARY | 2025-02-09 17:27 | XMS_ITS | Clinical Summary ---
Author Organization [facility] Address [address] [facility] [place] [address] Care Team Providers Care Shipyard Painter Name Role Phone Unavailable Primary Care Provider Unavailabl e Source Comments [facility],non-owned Affiliates and Associated Physician Practices is amultiple site organization consisting of ambulatory clinics and hospital sitesin [place], [place], [place] and [place]. This disclosure is being madepursuant to the Care Everywhere program and may not contain all information available regarding this patient. Last updated 18.[facility] [employer] Social History Tobacco Use Types Packs/Day Years [...] - 1-dose 75+ series) 2018 COVID-19 VACCINE ( - 2023-2 5 season) 2024 INFLUENZA VACCINE (#1) 2024 DEPRESSION SCREENING 11/19/2024 MEDICARE AWV CALENDAR YEAR 2024 HEPATITIS B VACCINE Aged Out No longe r eligible based on patient's age to complete this topic HIB VACCINE Aged Out No longer eligi ble based on patient's age to complete this topic HPV VACCINE Aged Out No longer eligi ble based on patient's age to complete this topic MENINGOCOCCAL (Group B) VACC INE SHARED DECISION-MAKING Aged Out No longer eligibl e based on patient's age to complete this topic MENINGOCOCCAL GROUPS A/C/Y/W VACCINE Aged Out No longer eligible b ased on patient's age to complete this topic
--- OUTSIDE RECORDS SUMMARY | 2025-02-09 17:27 | XMS_ITS | Clinical Summary ---
Author Organization [facility] Address [address] [place] [address] Phone Care Team Providers Care School Bus Monitor Name Role Phone Bill Colin DO Primary Care Provider [phone] Allergies Active Allergy Reactions Criticality Noted Date [...] PM CDT Pulse - - Temperature 37 C (98.6 F) 01/26/2020 3:28 PM CDT Respiratory Rate 18 01/26/2020 3:28 PM CDT Oxygen Saturation - - Inhaled Oxygen Concentration - - Weight 76.7 kg (169 lb) 01/26/2020 3:28 PM CDT Height 157.5 cm (5' 2 ) 01/26/2020 3:28 PM CDT Body Mass Index 30.91 01/26/2020 3:28 PM CDT Plan of Treatment Health Maintenance Due Date Last Done Comments Pneumococcal PPSV23/PCV13 65 + Years / Low and Medium Risk (2 of 4 - PCV) 2008 04/08/2004, 10/24/1996 Influenza Vaccine (#1) 2024 10/01/2018 Care Teams School Bus Monitor Relationship Specialty Start Date End Date Bill Colin DO [address] [place] [address] PCP - General Internal Medicine 07/22/19
--- OUTSIDE RECORDS SUMMARY | 2025-02-09 17:27 | XMS_ITS | Clinical Summary ---
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
--- OUTSIDE RECORDS SUMMARY | 2025-02-09 17:27 | XMS_ITS | Encounter Summary ---
Author Organization [facility] Address [address] [facility] [place] [address] Care Team Providers Care Denture Laboratory Technician Name Role Phone Unavailable Primary Care Provider Unavailabl e Encounter Details Date Type Department Care Team (Late st Contact Info) Description 06/29/2022 Lab Requisition [facility] DermPath Lab [address] [place] [phone] Payam Blake MD [address] [place] [address] Social History Tobacco Use Types Packs/Day Years [...] 12:00 AM CDT) Case Report Dermatopathology Report Case: [id number] Authorizing Provider: Payam Blake MD Collected: 06/28/2022 12:00 AM Ordering Location: [facility] DermPath Lab Received: 06/29/2022 01:35 PM Pathologist: Alfredo Miller MD Specimen: Skin, right cheek lateral to ml fold 2 5:55 PM CDT DERMATOPATHOLOGY LABORATORY Final [...] shave biopsy measuring 9x9x2 mm. Jar 0. 2 5:55 PM CDT DERMATOPATHOLOGY LABORATORY Microscopic Description [...] characteristic determined by the Dermatopathology Laboratory at [facility], directed by Dr. Jean Miller. These tests need not be, and therefore are not, approved by the [place] Food and Drug Administration. The tests are used for clinical purposes. Billing Codes Specimen Charges Stain Charges 29640 1 2 5:55 PM CDT DERMATOPATHOLOGY LABORATORY Embedded Images 2 5:55 PM CDT DERMATOPATHOLOGY LABORATORY Pathology/Cytolog y TISSUE SPECIMEN FROM SKIN / Unknown 06/28/2022 06/29/2022 1:35 PM CDT Payam Blake MD LAB - PATHOLOGY/CYTO LOGY ORDERABLES DERMATOPATHOLOGY LABORATORY [facility] - Department of Dermatology [address], [address] [phone] documented in this encounter Visit Diagnoses Not on filedocumented in this encounter
[2025-02-09 19:51] LABS: Basophils Absolute Auto 0.1 K/mm3 (0.0-0.1); Basophils Percent Auto 0.7 % (0.2-1.2); Eosinophils Absolute Auto 0.1 K/mm3 (0-0.3); Eosinophils Percent Auto 0.9 % (0-4.4); Hematocrit 40.9 % (37.0-47.0); Hemoglobin 12.8 g/dL (12.0-15.0); Immature Granulocyte Absolute 0.03 K/mm3 (0.00-0.031); Immature Granulocyte Percent A 0.4 % (0-0.5); Lymphocytes Absolute Auto 1.01 K/mm3 (0.9-3.2); Lymphocytes Percent Auto 12.5 % (18.3-44.2); Mean Corpuscular HGB Conc 31.3 g/dl (32-36); Mean Corpuscular Hemoglobin 30.2 pg (26-34); Mean Corpuscular Volume 96.5 fl (80-100); Mean Platelet Volume 12.8 fl (7.4-10.4); Monocytes Percent Auto 11.9 % (2.6-8.5); Neutrophils Percent Auto 73.6 % (45.5-73.1); Platelet Count Result 197 k/mm3 (150-375); Red Blood Count 4.24 M/mm3 (4.2-5.4); Red Cell Distribution Width 12.7 % (11.5-14.5); White Blood Count 8.1 K/mm3 (4.5-10.0)
[2025-02-09 20:22] LABS: Anion Gap 11 mmol/L (4-12); Blood Urea Nitrogen 26 mg/dL (7-17); Calcium 9.5 mg/dL (8.4-10.2); Carbon Dioxide 25 mmol/L (22-30); Chloride 101 mmol/L (98-107); Estimated Glomerular Filt Rate 31; Glucose 112 mg/dL (65-110); Potassium 4.3 mmol/L (3.4-5.0); Sodium 137 mmol/L (137-145)
== END 2025-02-09 15:03 | disposition home or self-care (01) ==
LOC: ANHGOSHLAB 15:03
PROVIDERS: PCP Internal Medicine; Visit Provider Clinical Nurse Specialist
DX: R06.02 Shortness of breath (principal); I12.9 Hypertensive chronic kidney disease with stage 1 through stage 4 chronic kidney disease, or unspecified chronic kidney disease; N18.32 Chronic kidney disease, stage 3b
CPT/HCPCS: 36415; 80048; 85025

== ENCOUNTER 2025-02-09 16:07 | Outpatient (CLI) | payer MEDICARE, MEDICAID, SELFPAY ==
--- NOTE | ~2025-02-09 | XR_ITS ---
XR chest 2V Ordering provider: JOI Contreras History: 79 years Female with . R06.02 - Shortness of breath FOR 2 WEEKS . Comparison: None. FINDINGS: MEDIASTINUM: The cardiac silhouette is not enlarged. LUNGS: No infiltrates, effusions or pneumothorax. Prominent markings in the lower lobes. OTHER: No free air under the diaphragm. Degenerative changes of the spine with levoscoliosis. IMPRESSION: No acute cardiopulmonary pathology. Reviewed, dictated and finalized at location A.
--- OUTSIDE RECORDS SUMMARY | 2025-02-09 18:25 | XMS_ITS | Clinical Summary ---
Author Organization [facility] Address [address] [place] [address] Care Team Providers Care Body Recall Instructor Name Role Phone Unavailable Primary Care Provider Unavailabl e Source Comments [facility],non-owned Affiliates and Associated Physician Practices is amultiple site organization consisting of ambulatory clinics and hospital sitesin [place], [place], [place] and [place]. This disclosure is being madepursuant to the Care Everywhere program and may not contain all information available regarding this patient. Last updated 18.[facility] [employer] Social History Tobacco Use Types Packs/Day Years [...]
--- OUTSIDE RECORDS SUMMARY | 2025-02-09 18:25 | XMS_ITS | Clinical Summary ---
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
--- OUTSIDE RECORDS SUMMARY | 2025-02-09 18:25 | XMS_ITS | Clinical Summary ---
Author Organization [facility] Address [address] [place] [address] Phone Care Team Providers Care Site Promotion Agent Name Role Phone Bill Colin DO Primary Care Provider [phone] Allergies Active Allergy Reactions Criticality Noted Date [...] Influenza Vaccine (#1) 2024 10/01/2018 Care Teams Site Promotion Agent Relationship Specialty Start Date End Date Bill Colin DO [address] [place] [address] PCP - General Internal Medicine 07/22/19
--- OUTSIDE RECORDS SUMMARY | 2025-02-09 18:25 | XMS_ITS | Encounter Summary ---
Author Organization [facility] Address [address] [facility] [place] [address] Care Team Providers Care Adventure Guide Name Role Phone Unavailable Primary Care Provider Unavailabl e Encounter Details Date Type Department Care Team (Late st Contact Info) Description 06/29/2022 Lab Requisition [facility] DermPath Lab [address] [place] [phone] Payam Blake MD [address] [place] [address] Social History Tobacco Use Types Packs/Day Years [...] AM CDT) Case Report Dermatopathology Report Case: [id number] Authorizing Provider: Payam Blake MD Collected: 06/28/2022 12:00 AM Ordering Location: [facility] DermPath Lab Received: 06/29/2022 01:35 [...] characteristic determined by the Dermatopathology Laboratory at [facility], directed by Dr. Jean Miller. These tests need not be, and therefore are not, approved by the [place] Food and Drug Administration. The tests are used for clinical purposes. Billing Codes Specimen Charges Stain Charges 15157 1 2 5:55 PM CDT DERMATOPATHOLOGY LABORATORY Embedded Images 2 5:55 PM CDT DERMATOPATHOLOGY LABORATORY Pathology/Cytolog y TISSUE SPECIMEN FROM SKIN / Unknown 06/28/2022 06/29/2022 1:35 PM CDT Payam Blake MD LAB - PATHOLOGY/CYTO LOGY ORDERABLES DERMATOPATHOLOGY LABORATORY [facility] - Department of Dermatology [address], [address] [phone] documented in this encounter Visit Diagnoses Not on filedocumented in this encounter
== END 2025-02-09 16:08 | disposition home or self-care (01) ==
PROVIDERS: PCP Internal Medicine; Visit Provider Clinical Nurse Specialist
DX: R06.02 Shortness of breath (principal)
CPT/HCPCS: 71046

== ENCOUNTER 2025-03-02 08:54 | Outpatient (CLI) | payer MEDICARE, MEDICAID, SELFPAY ==
--- NOTE | 2025-03-02 09:00 | ECHO_ITS ---
Patient Info Name: Elle Corrigan Age: 79 years : 1945 Gender: Female Ht: 62 in Wt: 142 lbs BSA: 1.69 m2 HR: 66 bpm BP: 137 / 68 mmHg Technical Quality: Good Exam Date: 03/02/2025 9:03 AM Exam Location: Echo Lab Patient Status: Outpatient Admit Date: 03/02/2025 Staff Ordering Physician: Jackeline Strong Retina Subspecialist: Eryn Melvin RDCS Attending Provider: Jackeline Strong Referring Physician: Tae DUQUE; Exam Type: CA echo doppler color flow Study Info Indications R06.02 - Shortness of breath Complete two-dimensional, color flow and Doppler transthoracic echocardiogram is performed. Summary 1. Complete two-dimensional, color flow and Doppler transthoracic echocardiogram is performed. 2. Left ventricular chamber dimension is normal. 3. Left ventricular systolic function is normal, estimated at 65-70%. 4. The left ventricular diastolic function is grade I diastolic dysfunction. 5. E/e' 9 is minimally elevated. 6. Left atrial chamber dimension is mildly enlarged. 7. There is trace mitral valve regurgitation. 8. There is trace tricuspid valve regurgitation. 9. No pulmonary hypertension, estimated pulmonary arterial systolic pressure is 35 mmHg. Left Ventricle E/e' 9 is minimally elevated. Left ventricular chamber dimension is normal. Left ventricular systolic function is normal, estimated at 65-70%. The left ventricular diastolic function is grade I diastolic dysfunction. Right Ventricle Right ventricular systolic function is normal and with normal TAPSE 2.2 cm. Right ventricular chamber dimension is normal. Left Atria Left atrial chamber dimension is mildly enlarged. Right Atria Right atrial chamber dimension is normal. Aortic Valve The aortic valve is trileaflet. There is no aortic valve stenosis. There is no aortic valve regurgitation. Pulmonic Valve There is no pulmonic regurgitation. Mitral Valve There is no mitral valve stenosis. There is trace mitral valve regurgitation. Tricuspid Valve There is trace tricuspid valve regurgitation. No pulmonary hypertension, estimated pulmonary arterial systolic pressure is 35 mmHg. Pericardium/Pleural There is no pericardial effusion. Inferior Vena Cava Normal inferior vena cava with >50% collapse upon inspiration consistent with normal right atrial pressure, 5 mmHg. Aorta The aortic root size at the sinus of Valsalva is normal. Left Ventricular Outflow Tract Name Value Normal LVOT 2D LVOT Diameter 1.9 cm LVOT Doppler LVOT Peak Gradient 4 mmHg LVOT Mean Gradient 2 mmHg LVOT VTI 24 cm LVOT VTI/AV VTI Ratio 0.7 LVOT Stroke Volume 64 ml LVOT CO 4.0 l/min LVOT CI 2.3 l/min/m2 Pulmonic Valve Name Value Normal RVOT Doppler RVOT Peak Gradient 2 mmHg PV Doppler PV Peak Gradient 3 mmHg Mitral Valve Name Value Normal MV Doppler MV Decel Pettis 374 cm/s2 MV PHT 65 ms MV Area (PHT) 3.4 cm2 4.0-5.0 MV Diastolic Function MV E Peak Velocity 84 cm/s MV A Peak Velocity 95 cm/s MV E/A 0.9 MV Decel Time 225 ms Tricuspid Valve Name Value Normal TV Regurgitation Doppler TR Peak Velocity 274 cm/s TR Peak Gradient 30 mmHg Estimated PAP/RSVP RA Pressure 5 mmHg <=5 PA Systolic Pressure 35 mmHg <36 RV Systolic Pressure 35 mmHg <36 Aorta Name Value Normal Ascending Aorta Ao Root Diameter (MM) 3.4 cm Ao Root Diam Index (MM) 2.0 cm/m2 Aortic Valve Name Value Normal AV Doppler AV Peak Velocity 146 cm/s AV Peak Gradient 8 mmHg AV Mean Gradient 5 mmHg AV VTI 34 cm AV Area (Cont Eq VTI) 1.9 cm2 >=3.0 AV Area (Cont Eq Juan A) 1.8 cm2 AV Regurgitation 2D LVOT Area 2.7 cm2 Ventricles Name Value Normal LV Dimensions 2D/MM IVS Diastolic Thickness (2D) 1.1 cm 0.6-1.0 IVS Diastole Thickness (MM) 1.0 cm 0.6-0.9 LVID Diastole (2D) 3.8 cm 3.8-5.2 LVID Diastole (MM) 5.0 cm 3.8-5.2 LVIW Diastolic Thickness (2D) 1.2 cm 0.6-0.9 LVIW Diastolic Thickness (MM) 1.0 cm 0.6-0.9 LVID Systole (2D) 2.3 cm 2.2-3.5 LVID Systole (MM) 2.5 cm 2.2-3.5 LVOT Diameter 1.9 cm LV Mass (2D Cubed) 137.34 g 67.00-162.00 LV Mass Index (2D Cubed) 81 g/m2 43-95 Relative Wall Thickness (2D) 0.61 LV Mass (MM Cubed) 186.92 g 67.00-162.00 LV Mass Index (MM Cubed) 110 g/m2 43-95 Relative Wall Thickness (MM) 0.40 LV Fractional Shortening/Ejection Fraction 2D/MM LV Fractional Shortening (2D) 39 % 27-45 LV Fractional Shortening (MM) 50 % 27-45 LV EF (MM Teicholz) 81 % 54-74 LV EF (2D Teicholz) 70 % 54-74 LV Diastolic Volume (4C MOD) 78 ml LV EF (4C MOD) 70 % LV Diastolic Volume (2C MOD) 76 ml LV EF (2C MOD) 66 % LV Diastolic Volume (BP MOD) 78 ml 46-106 LV Diastolic Volume Index (BP MOD) 46 ml/m2 29-61 LV Systolic Volume (BP MOD) 25 ml 14-42 LV Systolic Volume Index (BP MOD) 15 ml/m2 8-24 LV EF (BP MOD) 68 % 54-74 LV Diastolic Length (4C) 7.0 cm LV Systolic Length (4C) 5.6 cm LV Stroke Volume (4C MOD) 54 ml Atria Name Value Normal LA Dimensions LA Dimension (MM) 3.7 cm 2.7-3.8 LA Volume (4C A-L) 59 ml LA Volume (BP A-L) 58 ml RA Dimensions RA Area (4C) 17.8 cm2 <=18.0 Report Signatures
--- OUTSIDE RECORDS SUMMARY | 2025-03-02 09:22 | XMS_ITS | Clinical Summary ---
Author Organization [facility] Address [address] [place] [address] Phone Care Team Providers Care Audio Installer Name Role Phone Bill Colin DO Primary Care Provider [phone] Allergies Active Allergy Reactions Criticality Noted Date Comments Erythromycin Rash Low 08/13/2019 Reaction: Rash, Sulfa Antibiotics Hives,Rash High 08/13/2019 Reaction: Rash, , Reaction: Hives, Sulfanilamide Hives,Rash Medium 08/13/2019 Reaction: Hives, Skin Rash, Medications FLUoxetine (PROzac) 40 MG capsule TK 1 C PO QD 3 07/11/2019 Active traZODone (DESYREL) 100 MG tablet TK 1 T PO HS 3 07/11/2019 Active triamterene-hydr oCHLOROthiazide (MAXZIDE-25) 37.5-25 MG per tablet TK 1 T PO D 0 06/12/2019 Active colchicine 0.6 MG tablet TK 1 T PO PRN FOR GOUT ATTACK 12/09/2019 Active Active Problems Problem Noted Date Diagnosed Date Dyslipidemia 10/10/2018 Recurrent major depressive disorder 10/10/2018 Chronic kidney disease Immunizations Immunization Administration Dates Next Due Influenza, Quadrivalent 08/19/2019 Influenza, Unspecified 10/01/2018 Pneumococcal Polysaccharide 04/08/2004, 6 Td 01/28/2003 Zoster 06/26/2007 Family History Medical History Relation Comments Lung cancer Father Relation Status Comments Father Social History Tobacco Use Types Packs/Day Years Used Date Smoking Tobacco: Former Smokeless Tobacco: Never Alcohol Use Standard Drinks/Week Comments Yes 0 (1 standard drink = 0.6 oz pur e alcohol) Comments Unknown Sex and Gender Information Value Date Recorded Sex Assigned at Not on file Legal Sex Female 8:44 AM MDT Gender Identity Not on file Sexual Orientation [...] Medium Risk (2 of 4 - PCV) 04/08/2005 04/08/2004, 10/24/1996 Influenza Vaccine (Season Ended) 2025 10/01/20 18 Insurance [facility] Care Teams Audio Installer Relationship Specialty Start Date End Date Bill Colin DO [address] [place] [id number] PCP - General Internal Medicine 07/22/19
--- OUTSIDE RECORDS SUMMARY | 2025-03-02 09:22 | XMS_ITS | Clinical Summary ---
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 Gender Identity Not on file Sexual Orientation Not on file Plan of Treatment Health Maintenance Due Date Last Done Comments DTaP, Tdap and Td Vaccines ( 1 - Tdap) 1962 Zoster Vaccines (1 of 2) 1993 Dexa Scan (General) 2008 Pneumococcal Vaccine: 50+ Ye ars (1 of 1 - PCV) 2008 RSV Immunization or 60+ Years (1 - 1-dose 75+ series) 2018 COVID-19 Vaccine (2023-2 5 season) 2024 Meningococcal B Vaccine Aged Out No l onger eligible based on patient's age to complete this topic Meningococcal Vaccine Aged Out No rafael terese eligible based on patient's age to complete this topic RSV Immunizations Under 20 Months Aged Out No longer eligible based on patient's age to complete this topic
--- OUTSIDE RECORDS SUMMARY | 2025-03-02 09:22 | XMS_ITS | Clinical Summary ---
Author Organization [facility] Address [address] [facility] [place] [address] Care Team Providers Care Cartographic Aide Name Role Phone Unavailable Primary Care Provider Unavailabl e Source Comments [facility],non-owned Affiliates and Associated Physician Practices is amultiple site organization consisting of ambulatory clinics and hospital sitesin [place], [place], [place] and [place]. This disclosure is being madepursuant to the Care Everywhere program and may not contain all information available regarding this patient. 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
--- OUTSIDE RECORDS SUMMARY | 2025-03-02 09:22 | XMS_ITS | Encounter Summary ---
Author Organization [facility] Address [address] [place] [address] Care Team Providers Care Case Folder Name Role Phone Unavailable Primary Care Provider Unavailabl e Encounter Details Date Type Department Care Team (Late st Contact Info) Description 06/29/2022 Lab Requisition [facility] [address] [place] [address] Payam Blake MD [address] [place] [address] Social History Tobacco Use Types Packs/Day Years Used Date Smoking Tobacco: Never Assessed Comments Unknown Sex and Gender Information Value Date Recorded Sex Assigned at Not on file 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 Gender Identity Not on file Sexual Orientation Not on file documented as of this encounter Plan of Treatment Not on file documented as of this encounter Procedures Procedure Name Priority Date/Time Associated Diagnosis Comments DERMATOPATHOLOGY Routine 06/28/2022 12:0 0 AM CDT documented in this encounter Results * DERMATOPATHOLOGY (06/28/2022 12:00 AM CDT) Case Report Dermatopathology Report Case: [id number] Authorizing Provider: Payam Blake MD Collected: 06/28/2022 12:00 AM Ordering Location: [facility] Received: 06/29/2022 01:35 PM Pathologist: Alfredo Miller MD Specimen: Skin, right cheek lateral to ml fold 5:55 PM CDT DERMATOPATHOLOGY LABORATORY Final Diagnosis Specimen A. SKIN, right cheek lateral to ml fold: BASAL CELL CARCINOMA, NODULAR TYPE (C44.319) 5:55 PM CDT DERMATOPATHOLOGY LABORATORY Clinical History R/O BCC 2 5:55 PM CDT DERMATOPATHOLOGY LABORATORY Gross Description Specimen A: Received is one formalin filled container labeled with the patient's name and designated right cheek lateral to ml fold. The specimen consists of a shave biopsy measuring 9x9x2 mm. Jar 0. 2 5:55 PM T DERMATOPATHOLOGY LABORATORY Microscopic Description Specimen A. SKIN, [...] characteristic determined by the Dermatopathology Laboratory at [facility], directed by Dr. Jean Miller. These tests need not be, and therefore are not, approved by the [place] Food and Drug Administration. The tests are used for clinical purposes. Billing Codes Specimen Charges Stain Charges 66919 1 2 5:55 PM CDT DERMATOPATHOLOGY LABORATORY Embedded Images 2 5:55 PM CDT DERMATOPATHOLOGY LABORATORY Pathology/Cytolog y TISSUE SPECIMEN FROM SKIN / Unknown 06/28/2022 06/29/2022 1:35 PM CDT Payam Blake MD LAB - PATHOLOGY/CYTOLOGY ORD ERABLES Final Result DERMATOPATHOLOGY LABORATORY [facility] - Department of Dermatology [address], [address] [phone] documented in this encounter Visit Diagnoses Not on filedocumented in this encounter
== END 2025-03-02 08:55 | disposition home or self-care (01) ==
LOC: ANHCARD 08:54
PROVIDERS: PCP Internal Medicine; Visit Provider Clinical Nurse Specialist
DX: R06.02 Shortness of breath (principal)
CPT/HCPCS: 93306

== ENCOUNTER 2025-05-01 22:38 | Inpatient (IN) | payer MEDICARE, MEDICAID, SELFPAY ==
--- NOTE | ~2025-05-01 | XR_ITS ---
XR chest 1V portable Ordering provider: Becky Gerardo PA-C History: 80 years Female with . fever . Comparison: February 09, 2025 FINDINGS: MEDIASTINUM: The cardiac silhouette is slightly enlarged. Congestive joselyn. LUNGS: No effusions or pneumothorax. Bibasilar opacification suggestive of atelectasis versus pneumon ia. OTHER: No free air under the diaphragm. Degenerative changes of the spine. IMPRESSION: Bilateral basal atelectasis versus pneumonia. Reviewed, dictated and finalized at location A.
--- NOTE | ~2025-05-01 | CT_ITS ---
EXAMINATION: CT abdomen pelvis wo con DATE: 05/02/2025 00:27 INDICATION: UTI. Abdomen pain. Vomiting. TECHNIQUE: Computed tomography (CT) of the abdomen and pelvis was performed without intravenous contr ast. The dose-length product was 367.46 mGy-cm. Automated exposure control and iterative reconstructi on technique were employed. COMPARISON: CT dated 07/08/2013 FINDINGS: There are surgical changes of subtotal gastrectomy with Ana-en-Y gastric bypass. There are patchy groundglass opacities of the lung bases. There are calcified granulomas of the spleen. Mild r enal atrophy. Small low-density lesion right kidney, most likely benign cysts. No renal stones or hyd ronephrosis. Liver, adrenal glands are unremarkable. There is pancreatic atrophy. There is mildly enl arged mesenteric lymph node near the pancreas, nonspecific measuring 12 mm. Status post cholecystecto my. Nonobstructive bowel gas pattern. Normal appendix. There is atherosclerosis of the aorta without aneurysm. There is no evidence for aneurysm. No lymphadenopathy otherwise noted. Status post hysterec laura. There is suggestion of pelvic relaxation. Severe thoracic and lumbar spondylosis. Moderate bila teral lateral osteoarthritis of the hips. No ureteral stones or hydronephrosis. No abnormal pelvic ma sses or fluid collections. Colonic diverticulosis without diverticulitis. Normal appendix. IMPRESSION: 1. No acute abdominal abnormality. Reviewed, dictated and finalized at location B.
--- NOTE | ~2025-05-01 | XR_ITS ---
EXAMINATION: XR chest 1V portable DATE: 05/05/2025 10:17 INDICATION: Cough and shortness of breath TECHNIQUE: frontal view of the chest was obtained. COMPARISON: Chest radiograph dated 05/01/2025 FINDINGS: Tiny calcified nodules at the right apex consistent with old granulomatous disease. Interval improvem ent in now minimal opacities in bilateral lower lung zones consistent with improving pneumonia and/or atelectasis. No pulmonary edema, pleural effusion or pneumothorax. Heart size is normal. Postoperati ve changes in the epigastric region corresponding to partial gastrectomy and gastric bypass procedure on prior CT. IMPRESSION: 1. Improving bibasilar atelectasis and/or pneumonia. Reviewed, dictated and finalized at location A.
--- NOTE | ~2025-05-01 | XR_ITS ---
EXAMINATION: XR ankle LT 2V, XR foot LT min 3V, XR foot RT min 3V, XR ankle RT 2V DATE: 05/05/2025 10:17 INDICATION: Left foot and ankle pain TECHNIQUE: 1. Anteroposterior and lateral view of the left ankle were obtained. 2. Dorsoplantar, two oblique and lateral views of the left foot were obtained. 3. Anteroposterior and lateral view of the right ankle were obtained. 4. Dorsoplantar, two oblique and lateral views of the right foot were obtained. COMPARISON: None. FINDINGS: Left foot and ankle: Alignment of the left foot and ankle is normal. No fracture. Moderate-sized Achilles calcaneal spur. Polyarticular osteoarthritis, moderate severity at the first metatarsophalangeal and at the second-fo urth distal interphalangeal joints with mild osteoarthritis at the left ankle joint in essentially al l of the remaining joints in the left foot. There is prominent soft tissue swelling along the medial side of the head of the first metatarsal where there is a moderate-sized juxta articular erosion with thin sclerotic margins and overhanging edges typical for gout. Possible second erosion at the medial side of the distal cuboid. Right foot and ankle: Alignment of the right foot and ankle is normal. No fracture. Small Achilles calcaneal spur. Similar prominent soft tissue swelling overlying the medial head of the first metatarsal with smaller similar appearing structure articular erosions with overhanging edges at the medial head of the first metata rsal also suspicious for gout. There is also a similar distribution of polyarticular osteoarthritis a t the right foot, moderate at the first metatarsophalangeal joint and mild at the right ankle joint a nd remaining joints in the right foot. IMPRESSION: 1. Prominent soft tissue swelling overlying the medial aspect of the heads of the first metatarsals w here there are erosions with typical location and appearance for gout. Potential additional erosion a t the medial distal left cuboid. 2. 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 3. Small right-sided and moderate left-sided Achilles calcaneal spurs. Reviewed, dictated and finalized at location A. IMPRESSION: 1. Prominent soft tissue swelling overlying the medial aspect of the heads of t augustine first metatarsals where there are erosions with typical location and appeara nce for gout. Potential additional erosion at the medial distal left cuboid. 2. 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 3. Small right-sided and moderate left-sided Achilles calcaneal spurs. IMPRESSION: 1. Prominent soft tissue swelling overlying the medial aspect of the heads of t augustine first metatarsals where there are erosions with typical location and appeara nce for gout. Potential additional erosion at the medial distal left cuboid. 2. 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 3. Small right-sided and moderate left-sided Achilles calcaneal spurs. IMPRESSION: 1. Prominent soft tissue swelling overlying the medial aspect of the heads of t augustine first metatarsals where there are erosions with typical location and appeara nce for gout. Potential additional erosion at the medial distal left cuboid. 2. 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 3. Small right-sided and moderate left-sided Achilles calcaneal spurs.
--- OUTSIDE RECORDS SUMMARY | 2025-05-01 22:39 | XMS_ITS | Clinical Summary ---
Author Organization [facility] Address [address] [place] [address] Phone Care Team Providers Care Minister Assistant Name Role Phone Bill Colin DO Primary Care Provider [phone] Allergies Active Allergy Reactions Criticality Noted Date [...] 3:28 PM CDT Height 157.5 cm (5' 2) 01/26/2020 3:28 PM CDT Body Mass Index 30.91 01/26/2020 3:28 PM CDT Plan of Treatment Health Maintenance Due Date Last Done Comments Pneumococcal PPSV23/PCV13 65 + Years / Low and Medium Risk (2 of 4 - PCV) 04/08/2005 04/08/2004, 10/24/1996 Influenza Vaccine (Season Ended) 2025 10/01/20 18 Insurance [facility] Care Teams Minister Assistant Relationship Specialty Start Date End Date Bill Colin DO [address] [place] [address] PCP - General Internal Medicine 07/22/19
--- OUTSIDE RECORDS SUMMARY | 2025-05-01 22:39 | XMS_ITS | Encounter Summary ---
Author Organization [facility] Address [address] [facility] [place] [address] Care Team Providers Care Marketing Research Intern Name Role Phone Unavailable Primary Care Provider Unavailabl e Encounter Details Date Type Department Care Team (Late st Contact Info) Description 06/29/2022 Lab Requisition [facility] [address] [place] [address] Payam Blake MD [address] [place] [address] Social History Tobacco Use Types Packs/Day Years Used Date Smoking Tobacco: Never Assessed Comments Unknown Sex and Gender Information Value Date Recorded Sex Assigned at Not on file 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 Gender Identity Not on file Sexual Orientation Not on file documented as of this encounter Plan of Treatment Not on file documented as of this encounter Procedures Procedure Name Priority Date/Time Associated Diagnosis Comments DERMATOPATHOLOGY Routine 06/28/2022 12:0 0 AM CDT documented in this encounter Results * DERMATOPATHOLOGY (06/28/2022 12:00 AM CDT) Case Report Dermatopathology Report Case: [id number] Authorizing Provider: Payam Blake MD Collected: 06/28/2022 12:00 AM Ordering Location: [facility] Received: 06/29/2022 01:35 PM Pathologist: Alfredo Miller MD Specimen: Skin, right cheek lateral to ml fold 5:55 PM CDT DERMATOPATHOLOGY LABORATORY Final Diagnosis Specimen A. SKIN, right cheek lateral to ml fold: BASAL CELL CARCINOMA, NODULAR TYPE (C44.319) 5:55 PM CDT DERMATOPATHOLOGY LABORATORY at 1755 CDT Clinical History R/O BCC 2 5:55 PM [...] characteristic determined by the Dermatopathology Laboratory at [facility], directed by Dr. Jean Miller. These tests need not be, and therefore are not, approved by the [place] Food and Drug Administration. The tests are used for clinical purposes. Billing Codes Specimen Charges Stain Charges 99749 1 2 5:55 PM CDT DERMATOPATHOLOGY LABORATORY Embedded Images 2 5:55 PM CDT DERMATOPATHOLOGY LABORATORY Pathology/Cytolog y TISSUE SPECIMEN FROM SKIN / Unknown 06/28/2022 06/29/2022 1:35 PM CDT Payam Blake MD LAB - PATHOLOGY/CYTOLOGY ORD ERABLES Final Result DERMATOPATHOLOGY LABORATORY [facility] - Department of Dermatology [address] [phone] documented in this encounter Visit Diagnoses Not on filedocumented in this encounter
--- OUTSIDE RECORDS SUMMARY | 2025-05-01 22:39 | XMS_ITS | Clinical Summary ---
Author Organization [facility] Address [address] [facility] [place] [address] Care Team Providers Care Food Supervisor Name Role Phone Unavailable Primary Care Provider Unavailabl e Source Comments [facility],non-owned Affiliates and Associated Physician Practices is amultiple site organization consisting of ambulatory clinics and hospital sitesin [place], [place] and [place]. This disclosure is being madepursuant to the Care Everywhere program and may not contain all information available regarding this patient. 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
[2025-05-01 22:56] VITALS: BP 149/63; PULSE 95; RESP 21; TEMP 37.7; O2SAT 98
[2025-05-01 23:05] VITALS: O2SAT 98
[2025-05-01 23:06] VITALS: BP 156/51; PULSE 93; PULSE 94; RESP 21; RESP 24; O2SAT 100; O2SAT 95
--- OUTSIDE RECORDS SUMMARY | 2025-05-01 23:09 | XMS_ITS | Clinical Summary ---
Author Organization [facility] Address [address] [facility] [place] [address] Care Team Providers Care Purification Supervisor Name Role Phone Unavailable Primary Care Provider Unavailabl e Source Comments [facility],non-owned Affiliates and Associated Physician Practices is amultiple site organization consisting of ambulatory clinics and hospital sitesin [place], [place], [place] and [place]. This disclosure is being madepursuant to the Care Everywhere program and may not contain all information available regarding this patient. Last updated 18.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
--- OUTSIDE RECORDS SUMMARY | 2025-05-01 23:09 | XMS_ITS | Encounter Summary ---
Author Organization [facility] Address [address] [place] [address] Care Team Providers Care Accident Investigator Name Role Phone Unavailable Primary Care Provider Unavailabl e Encounter Details Date Type Department Care Team (Late st Contact Info) Description 06/29/2022 Lab Requisition [facility] [address] [place] [address] Payam Blake MD [address] [place] [address] Social History Tobacco Use Types Packs/Day Years Used Date Smoking Tobacco: Never Assessed Comments Unknown Sex and Gender Information Value Date Recorded Sex Assigned at Not on file 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 Gender Identity Not on file Sexual Orientation Not on file documented as of this encounter Plan of Treatment Not on file documented as of this encounter Procedures Procedure Name Priority Date/Time Associated Diagnosis Comments DERMATOPATHOLOGY Routine 06/28/2022 12:0 0 AM CDT documented in this encounter Results * DERMATOPATHOLOGY (06/28/2022 12:00 AM CDT) Case Report Dermatopathology Report Case: [id number] Authorizing Provider: Payam Blake MD Collected: 06/28/2022 12:00 AM Ordering Location: [facility] Received: 06/29/2022 01:35 PM Pathologist: [...] characteristic determined by the Dermatopathology Laboratory at [facility], directed by Dr. Jean Miller. These tests need not be, and therefore are not, approved by the [place] Food and Drug Administration. The tests are used for clinical purposes. Billing Codes Specimen Charges Stain Charges 09187 1 2 5:55 PM CDT DERMATOPATHOLOGY LABORATORY Embedded Images 2 5:55 PM CDT DERMATOPATHOLOGY LABORATORY Pathology/Cytolog y TISSUE SPECIMEN FROM SKIN / Unknown 06/28/2022 06/29/2022 1:35 PM CDT Payam Blake MD LAB - PATHOLOGY/CYTOLOGY ORD ERABLES Final Result DERMATOPATHOLOGY LABORATORY [facility] - Department of Dermatology [address], [address] [phone] documented in this encounter Visit Diagnoses Not on filedocumented in this encounter
--- OUTSIDE RECORDS SUMMARY | 2025-05-01 23:09 | XMS_ITS | Clinical Summary ---
Author Organization [facility] Address [address] [place] [address] Phone Care Team Providers Care Salesperson Surgical Appliances Name Role Phone Bill Colin DO Primary Care Provider [phone] Allergies Active Allergy Reactions Criticality Noted Date [...] Vaccine (Season Ended) 2025 10/01/20 18 Insurance [facility] Care Teams Salesperson Surgical Appliances Relationship Specialty Start Date End Date Bill Colin DO [address] [place] [phone] PCP - General Internal Medicine 07/22/19
[2025-05-01 23:14] LABS: Basophils Percent Auto 0.3 % (0.2-1.2); Eosinophils Percent Auto 0.1 % (0-4.4); Hematocrit 35.5 % (37.0-47.0); Hemoglobin 11.3 g/dL (12.0-15.0); Immature Granulocyte Absolute 0.08 K/mm3 (0.00-0.031); Immature Granulocyte Percent A 0.5 % (0-0.5); Lymphocytes Absolute Auto 0.48 K/mm3 (0.9-3.2); Lymphocytes Percent Auto 3.3 % (18.3-44.2); Mean Corpuscular HGB Conc 31.8 g/dl (32-36); Mean Corpuscular Hemoglobin 29.5 pg (26-34); Mean Corpuscular Volume 92.7 fl (80-100); Mean Platelet Volume 12.2 fl (7.4-10.4); Monocytes Absolute Auto 1.2 K/mm3 (0.1-0.6); Monocytes Percent Auto 8.5 % (2.6-8.5); Neutrophils Absolute Auto 12.7 K/mm3 (1.3-6.7); Neutrophils Percent Auto 87.3 % (45.5-73.1); Platelet Count Result 193 k/mm3 (150-375); Red Blood Count 3.83 M/mm3 (4.2-5.4); Red Cell Distribution Width 13.2 % (11.5-14.5); White Blood Count 14.6 K/mm3 (4.5-10.0)
[2025-05-01 23:23] LABS: Alanine Aminotransferase 18 U/L (6-35); Albumin Level 4.1 g/dL (3.5-5.1); Alkaline Phosphatase 131 U/L (38-126); Anion Gap 7 mmol/L (4-12); Aspartate Amino Transferase 26 U/L (14-36); Bilirubin,Total 0.7 mg/dL (0.2-1.3); Blood Urea Nitrogen 23 mg/dL (7-17); Calcium 9.4 mg/dL (8.4-10.2); Carbon Dioxide 24 mmol/L (22-30); Chloride 98 mmol/L (98-107); Estimated CRCL calculation 25 ml/min; Estimated Glomerular Filt Rate 40; Glucose 150 mg/dL (65-110); Sodium 129 mmol/L (137-145); Total Protein 6.9 g/dL (6.3-8.2)
[2025-05-01 23:25] LABS: Add Urine Microscopic? YES; Appearance Urine Clear (Clear); Bacteria Urine 4+ /hpf; Bilirubin Urine Negative (Negative); Blood Urine Negative (Negative); Color Urine Yellow (Yellow); Glucose Urine UA Negative (Negative); Ketones Urine Trace mg/dL (Negative); Leukocyte Esterase Ur 1+ LEU/UL (Negative); Need Manual Microscopic Reviewed; Nitrate Urine Positive (Negative); Non Pathogenic Casts 0-2; Protein Urine Negative (Negative); RBC Urine 0-2 /hpf (0-2); Specific Grav Ur 1.016 (1.001-1.035); Squamous Epithelial Cell Urine None Seen /hpf (Few)
[2025-05-01 23:34] LABS: Band Neutrophils Percent 2 % (0-6); Lymphocytes Absolute Manual 1.31 K/mm3 (1.1-4.5); Monocytes Absolute Manual 0.14 K/mm3 (0.1-0.90); Monocytes Percent Manual 1 % (3-9); Neutrophils Absolute Manual 13.14 K/mm3 (1.3-6.7); Neutrophils Percent Manual 88 % (46-73); Total Cells Counted 100
[2025-05-01 23:35] LABS: Anisocytosis 1+; Hypochromasia 1+; Large Platelets Present; Platelet Estimate Adequate (Adequate); Schistocytes None Seen
[2025-05-01 23:49] LABS: Influenza A QL RT-PCR Negative (Negative); Influenza B QL RT-PCR Negative (Negative); RSV RNA, RT-PCR Negative (Negative); SARS-CoV-2 RNA PCR Negative (Negative)
[2025-05-02] VITALS (7 sets, daily range): BP systolic 116–141; BP diastolic 42–50; PULSE 70–89; RESP 16–21; TEMP 36–37.3; O2SAT 90–98; BMI 26.5; BMI 28.1
--- NOTE | 2025-05-02 00:01 | ED_ITS ---
HPI - Fever General Chief Complaint: Urogenital-Female <Becky Gerardo PA-C - Last Filed: 05/02/25 02:54> Stated Complaint: fever and chills, hx of uti <Becky Gerardo PA-C - Last Filed: 05/02/25 02:54> Time Seen by Provider: 05/01/25 22:55 <Becky Gerardo PA-C - Last Filed: 05/02/25 02:54> Source: patient and family <Becky Gerardo PA-C - Last Filed: 05/02/25 02:54> Mode of arrival: ambulatory <DONNIE Hernandez Last Filed: 05/02/25 02:54> Limitations: other (poor historian) <Becky Gerardo PA-C - Last Filed: 05/02/25 02:54> History of Present Illness HPI Narrative: This is a 80 year old female that presents to the ER for fever. Patient reportedly just recently finished an antibiotic for UTI. Unsure of which antibiotic. Developed fevers, chills, feeling generally unwell today. Sent in from her facility for further evaluation. She does report a cough, as well as an episode of vomiting. <DONNIE Hernandez Last Filed: 05/02/25 02:54> Related Data Home Medications: Home Medications ?Medication ?Instructions ?Recorded ?Confirmed ?Last Taken ?Type acetaminophen 325 mg tablet 325 mg PO Q6H PRN 11/10/24 02/09/25 Unknown History <DONNIE Hernandez Last Filed: 05/02/25 02:54> Allergies/Adverse Reactions: Allergies Allergy/AdvReac Type Severity Reaction Status Date / Time Sulfa (Sulfonamide Allergy Intermediate Hives Verified 02/09/25 14:10 Antibiotics) <DONNIE Hernandez Last Filed: 05/02/25 02:54> Review of Systems 2 Review of Systems: All systems reviewed & are unremarkable except as noted in HPI and below <DONNIE Hernandez Last Filed: 05/02/25 02:54> [facility] Past Medical History Medical History: Medical History Anxiety GERD (gastroesophageal reflux disease) 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, degenerative History of multiple strokes Back pain Positive colorectal cancer screening using Cologuard test Insomnia Depression Overdose of antidepressant Hypertension Anemia CKD (chronic kidney disease) Hyperglycemia <Becky Gerardo PA-C - Last Filed: 05/02/25 02:54> Surgical History Surgical History: Surgical History H/O: hysterectomy <Becky Gerardo PA-C - Last Filed: 05/02/25 02:54> Family History Family History: Family History Sibling Pancreatic cancer Father Family history of lung cancer Other Family history of cardiovascular disease <DONNIE Hernandez Last Filed: 05/02/25 02:54> Social History Social History: Social History Social History: Caffeine-soda Smoking packs per day: 1 Smoking cigarettes per day: 20.0 Years smoked: 2 Smoking pack-years: 2.00 Smoking status: Former smoker Tobacco type: cigarettes Smoking end date: 11/19/72 Alcohol intake: former Substance use: never Substance use type: does not use Current Housing: Decline to Answer Concerned About Future Housing: Decline to Answer Difficulty Paying Gas/Electric Bills: Decline to Answer Difficulty Paying for Meds: Decline to Answer Currently Unemployed: Decline to Answer Education: Decline to Answer Difficulty w/ Childcare or Family Care: Decline to Answer Living arrangements: assisted living Gender identity (if verbalized by the patient): Female Spiritual care concerns: No <DONNIE Hernandez Last Filed: 05/02/25 02:54> Exam 2 Narrative: GENERAL: Elderly, well-nourished, and in no acute distress. HEAD: Normocephalic, atraumatic. EYES: EOMI. ENT: Nares clear, no rhinorrhea or epistaxis. Mucous membranes moist. Oropharynx without tonsillar hypertrophy exudate or other lesions. NECK: Supple. No adenopathy or masses CHEST: No respiratory distress. Rales in the bilateral lower lobes. No wheezes or rhonchi HEART: Regular rate and rhythm. No murmur heard. Normal peripheral pulses. ABDOMEN: Soft, nontender, nondistended, normal active bowel sounds. EXTREMITIES: Normal range of motion. No edema. SKIN: Warm, dry, no rash. NEURO: No focal deficits. Alert and oriented x3. PSYCH: Normal mood and affect <Becky Gerardo PA-C - Last Filed: 05/02/25 02:54> Course MANAGER TITLE/PA Physician Supervision patient and family updated on workup and recommendation for admission < Becky Gerardo PA-C - Last Filed: 05/02/25 02:54> I agree with midlevel documentation; I performed the medical decision making component of this evaluation. <Mariluz Womack MD - Last Filed: 05/02/25 03:01> Reevaluation(s) Reevaluation #1: patient and family updated on workup and recommendation for admission < Mariluz Womack MD - Last Filed: 05/02/25 03:01> Consultations Consultation #1: spoke with hospitalist about patient and workup who accepts admission < Becky Gerardo PA-C - Last Filed: 05/02/25 02:54> Date: 05/02/25 <Becky Gerardo PA-C - Last Filed: 05/02/25 02:54> Vital Signs Vital signs: Vital Signs Temperature 99.8 F H 05/01/25 22:56 Pulse Rate 95 05/01/25 22:56 Respiratory Rate 21 H 05/01/25 22:56 Blood Pressure 149/63 H 05/01/25 22:56 Pulse Oximetry 98 05/01/25 22:56 Oxygen Delivery Nasal Cannula 05/01/25 22:56 Oxygen Flow Rate 2 05/01/25 22:56 Temperature 99.8 F H 05/01/25 22:56 Pulse Rate 75 05/02/25 02:48 Respiratory Rate 21 H 05/02/25 02:48 Blood Pressure 122/50 L 05/02/25 02:48 Pulse Oximetry 97 05/02/25 02:48 Oxygen Delivery Nasal Cannula 05/01/25 23:06 Oxygen Flow Rate 1 05/01/25 23:06 <Becky Gerardo PA-C - Last Filed: 05/02/25 02:54> Vital Signs Temperature 99.8 F H 05/01/25 22:56 Pulse Rate 95 05/01/25 22:56 Respiratory Rate 21 H 05/01/25 22:56 Blood Pressure 149/63 H 05/01/25 22:56 Pulse Oximetry 98 05/01/25 22:56 Oxygen Delivery Nasal Cannula 05/01/25 22:56 Oxygen Flow Rate 2 05/01/25 22:56 Temperature 99.8 F H 05/01/25 22:56 Pulse Rate 75 05/02/25 02:48 Respiratory Rate 21 H 05/02/25 02:48 Blood Pressure 122/50 L 05/02/25 02:48 Pulse Oximetry 97 05/02/25 02:48 Oxygen Delivery Nasal Cannula 05/01/25 23:06 Oxygen Flow Rate 1 05/01/25 23:06 <Mariluz Womack MD - Last Filed: 05/02/25 03:01> MDM - Fever MDM Narrative Medical decision making narrative: Patient presents to the ER for fever. Tachypneic with temperature of 99.8 upon arrival. Blood pressure stable. Oxygen saturation 90% on room air. Placed on oxygen via NC. White blood cell count of 14.6. Metabolic panel with kidney function that is likely around her baseline, mild hyponatremia. Urine with evidence of infection. This was sent for culture. Blood cultures sent, patient started on IV antibiotics. Chest x-ray showing possible pneumonia. She does have a coarse sounding cough. CT abdomen/pelvis without acute findings. Spoke with hospitalist about patient and workup who accepts admission <Becky Gerardo PA-C - Last Filed: 05/02/25 02:54> Differential Diagnosis Differential diagnosis: Likely fever of unknown origin, community acquired pneumonia, pyelonephritis, sepsis and other (UTI, dehydration, electrolyte derangement) < Becky Gerardo PA-C - Last Filed: 05/02/25 02:54> Lab Data Attestation: I reviewed the patient's lab results. <Becky Gerardo PA-C - Last Filed: 05/02/25 02:54> Result diagrams: 05/01/25 23:04 05/01/25 23:04 <Becky Gerardo PA-C - Last Filed: 05/02/25 02:54> Labs: Lab Results 05/01/25 05/02/25 Range/Units 23:04 00:40 WBC 14.6 H (4.5-10.0) K/mm3 RBC 3.83 L (4.2-5.4) M/mm3 Hgb 11.3 L (12.0-15.0) g/dL Hct 35.5 L (37.0-47.0) % MCV 92.7 (80-100) fl MCH 29.5 (26-34) pg MCHC 31.8 L (32-36) g/dl RDW 13.2 (11.5-14.5) % Plt Count 193 (150-375) k/mm3 MPV 12.2 H (7.4-10.4) fl Immature Gran % (Auto) 0.5 (0-0.5) % Neut % (Auto) 87.3 H (45.5-73.1) % Lymph % (Auto) 3.3 L (18.3-44.2) % Williams % (Auto) 8.5 (2.6-8.5) % Eos % (Auto) 0.1 (0-4.4) % Baso % (Auto) 0.3 (0.2-1.2) % Lymph # (Auto) 0.48 L (0.9-3.2) K/mm3 Williams # (Auto) 1.2 H (0.1-0.6) K/mm3 Eos # (Auto) 0.0 (0-0.3) K/mm3 Baso # (Auto) 0.0 (0.0-0.1) K/mm3 Abs Immat Gran (auto) 0.08 H (0.00-0.031) K/mm3 Absolute Neuts (auto) 12.7 H (1.3-6.7) K/mm3 Absolute Nucleated RBC 0.000 (0.0-0.012) K/mm3 Total Counted 100 Neutrophils % (Manual) 88 H (46-73) % Band Neutrophils % 2 (0-6) % Lymphocytes % (Manual) 9.0 L (18-44) % Monocytes % (Manual) 1 L (3-9) % Nucleated RBC % 0.0 (0.0-0.2) % Abs Neuts (Manual) 13.14 H (1.3-6.7) K/mm3 Abs Lymphs (Manual) 1.31 (1.1-4.5) K/mm3 Abs Monocytes (Manual) 0.14 (0.1-0.90) K/mm3 Platelet Estimate Adequate (Adequate) Large Platelets Present Hypochromasia 1+ Anisocytosis 1+ Schistocytes None seen Sodium 129 L (137-145) mmol/L Potassium 4.0 (3.4-5.0) mmol/L Chloride 98 (98-107) mmol/L Carbon Dioxide 24 (22-30) mmol/L Anion Gap 7 (4-12) mmol/L BUN 23 H (7-17) mg/dL Creatinine 1.28 H (0.7-1.0) mg/dL Estim Creat Clear Calc 25 ml/min Estimated GFR 40 L (59 - ) Glucose 150 H (65-110) mg/dL Lactic Acid 1.0 (0.7-2.0) mmol/L Calcium 9.4 (8.4-10.2) mg/dL Total Bilirubin 0.7 (0.2-1.3) mg/dL AST 26 (14-36) U/L ALT 18 (6-35) U/L Alkaline Phosphatase 131 H (38-126) U/L Total Protein 6.9 (6.3-8.2) g/dL Albumin 4.1 (3.5-5.1) g/dL Urine Color Yellow (Yellow) Urine Appearance Clear (Clear) Urine pH 6.0 (5.0-9.0) Ur Specific [place] 1.016 (1.001-1.035) Urine Protein Negative (Negative) mg/dL Urine Glucose (UA) Negative (Negative) mg/dL Urine Ketones Trace H (Negative) mg/dL Ur Blood (Man) Negative (Negative) Urine Nitrate Positive H (Negative) Urine Bilirubin Negative (Negative) Urine Urobilinogen 1.0 (<2.0) mg/dL Add Ur Microanalysis Reviewed Leukocyte Esterase Rfl 1+ H (Negative) AGATHA/UL Urine RBC 0-2 (0-2) /hpf Urine WBC 6-10 H (0-3) /hpf Ur Squamous Epith Cells None seen (Few) /hpf Urine Bacteria 4+ H /hpf Urine Casts 0-2 Influenza A (RT-PCR) Negative (Negative) Influenza B (RT-PCR) Negative (Negative) RSV (RT-PCR) Negative (Negative) SARS-CoV-2 RNA (RT-PCR) Negative (Negative) <Becky Gerardo PA-C - Last Filed: 05/02/25 02:54> Lab Results 05/01/25 05/02/25 Range/Units 23:04 00:40 WBC 14.6 H (4.5-10.0) K/mm3 RBC 3.83 L (4.2-5.4) M/mm3 Hgb 11.3 L (12.0-15.0) g/dL Hct 35.5 L (37.0-47.0) % MCV 92.7 (80-100) fl MCH 29.5 (26-34) pg MCHC 31.8 L (32-36) g/dl RDW 13.2 (11.5-14.5) % Plt Count 193 (150-375) k/mm3 MPV 12.2 H (7.4-10.4) fl Immature Gran % (Auto) 0.5 (0-0.5) % Neut % (Auto) 87.3 H (45.5-73.1) % Lymph % (Auto) 3.3 L (18.3-44.2) % Williams % (Auto) 8.5 (2.6-8.5) % Eos % (Auto) 0.1 (0-4.4) % Baso % (Auto) 0.3 (0.2-1.2) % Lymph # (Auto) 0.48 L (0.9-3.2) K/mm3 Williams # (Auto) 1.2 H (0.1-0.6) K/mm3 Eos # (Auto) 0.0 (0-0.3) K/mm3 Baso # (Auto) 0.0 (0.0-0.1) K/mm3 Abs Immat Gran (auto) 0.08 H (0.00-0.031) K/mm3 Absolute Neuts (auto) 12.7 H (1.3-6.7) K/mm3 Absolute Nucleated RBC 0.000 (0.0-0.012) K/mm3 Total Counted 100 Neutrophils % (Manual) 88 H (46-73) % Band Neutrophils % 2 (0-6) % Lymphocytes % (Manual) 9.0 L (18-44) % Monocytes % (Manual) 1 L (3-9) % Nucleated RBC % 0.0 (0.0-0.2) % Abs Neuts (Manual) 13.14 H (1.3-6.7) K/mm3 Abs Lymphs (Manual) 1.31 (1.1-4.5) K/mm3 Abs Monocytes (Manual) 0.14 (0.1-0.90) K/mm3 Platelet Estimate Adequate (Adequate) Large Platelets Present Hypochromasia 1+ Anisocytosis 1+ Schistocytes None seen Sodium 129 L (137-145) mmol/L Potassium 4.0 (3.4-5.0) mmol/L Chloride 98 (98-107) mmol/L Carbon Dioxide 24 (22-30) mmol/L Anion Gap 7 (4-12) mmol/L BUN 23 H (7-17) mg/dL Creatinine 1.28 H (0.7-1.0) mg/dL Estim Creat Clear Calc 25 ml/min Estimated GFR 40 L (59 - ) Glucose 150 H (65-110) mg/dL Lactic Acid 1.0 (0.7-2.0) mmol/L Calcium 9.4 (8.4-10.2) mg/dL Total Bilirubin 0.7 (0.2-1.3) mg/dL AST 26 (14-36) U/L ALT 18 (6-35) U/L Alkaline Phosphatase 131 H (38-126) U/L Total Protein 6.9 (6.3-8.2) g/dL Albumin 4.1 (3.5-5.1) g/dL Urine Color Yellow (Yellow) Urine Appearance Clear (Clear) Urine pH 6.0 (5.0-9.0) Ur Specific [place] 1.016 (1.001-1.035) Urine Protein Negative (Negative) mg/dL Urine Glucose (UA) Negative (Negative) mg/dL Urine Ketones Trace H (Negative) mg/dL Ur Blood (Man) Negative (Negative) Urine Nitrate Positive H (Negative) Urine Bilirubin Negative (Negative) Urine Urobilinogen 1.0 (<2.0) mg/dL Add Ur Microanalysis Reviewed Leukocyte Esterase Rfl 1+ H (Negative) AGATHA/UL Urine RBC 0-2 (0-2) /hpf Urine WBC 6-10 H (0-3) /hpf Ur Squamous Epith Cells None seen (Few) /hpf Urine Bacteria 4+ H /hpf Urine Casts 0-2 Influenza A (RT-PCR) Negative (Negative) Influenza B (RT-PCR) Negative (Negative) RSV (RT-PCR) Negative (Negative) SARS-CoV-2 RNA (RT-PCR) Negative (Negative) <Mariluz Womack MD - Last Filed: 05/02/25 03:01> Imaging Data Radiologist's impression: ITS Impressions Chest X-Ray 05/01/25 23:43 IMPRESSION: Bilateral basal atelectasis versus pneumonia. CT abdomen and pelvis: No nephrolithiasis or obstructive uropathy. No hydronephrosis. Diverticulosis without acute diverticulitis. No bowel obstruction. No free air <Becky Gerardo PA-C - Last Filed: 05/02/25 02:54> Critical Care Time Critical Care Time Critical Care Time: Yes <Becky Gerardo PA-C - Last Filed: 05/02/25 02:54> Total Critical Care Time: 35 <Bekcy Gerardo PA-C - Last Filed: 05/02/25 02:54> Discharge Plan Discharge Clinical Impression: Acute UTI, Hyponatremia, Acute hypoxemic respiratory failure Pneumonia Qualifiers: Pneumonia type: due to unspecified organism Laterality: bilateral Lung location: lower lobe of lung Qualified Code(s): J18.9 - Pneumonia, unspecified organism Sepsis Qualifiers: Sepsis type: sepsis due to unspecified organism Sepsis acute organ dysfunction status: unspecified Qualified Code(s): A41.9 - Sepsis, unspecified organism <Becky Gerardo PA-C - Last Filed: 05/02/25 02:54> Patient Disposition: Still a Patient <Becky Gerardo PA-C - Last Filed: 05/02/25 02:54> Condition: Stable <Becky Gerardo PA-C - Last Filed: 05/02/25 02:54>
[2025-05-02] MEDS: ACETAMINOPHEN 500 MG TABLET 1000 MG PO (00:28)
[2025-05-02] MEDS: SODIUM CHLORIDE 0.9% IV 1,000 ML 999 ML IV CONT (00:29)
[2025-05-02] MEDS: AZITHROMYCIN 500 MG/NS 250 ML 500 MG/250 ML BAG 250 MG IVPB ×2 (01:11→22:29)
--- NOTE | 2025-05-02 03:48 | ADMGEN ---
This patient, Elle Corrigan, was admitted to 3 [facility] S[facility] Room 307-01. Patient/family oriented to hospital policies and general routines including ID bracelet, bed and alarms, visiting hours, pain management, procedures, bathroom and other care routines, personal items, smoking policy, room service/diet, and visiting hours. Information on how to activate the Rapid Response Team has been discussed. Patient/Family are encouraged to report perceived risks to care and to ask questions if they do not understand what they are told or what they should do.
--- NOTE | 2025-05-02 13:45 | PM.IMHP ---
H&P: HPI History of Present Illness Date/Time: 05/02/25 13:45 Chief Complaint: Fever chills Narrative: This is 80-year-old female who presents to the ED for fever and chills. Patient recently finished an antibiotic for UTI. Developed fever and chills and generally unwell last evening and came to the ED for evaluation. She also reports some cough and an episode of vomiting. She denies any abdominal pain. She does report going to the bathroom more often. In ED evaluation she was mildly febrile tachypneic with temperature of 99.8? blood pressure was stable oxygen saturation 90% on room air placed on oxygen via nasal cannula. Laboratory workup revealed WBC of 14.6 hemoglobin 11.3 platelet 193 sodium low at 129. Creatinine of 1.28. Chest x-ray showed possible pneumonia CT abdomen pelvis without acute findings. UA with positive nitrate and leukocyte esterase with 6-10 WBC. Influenza RSV and COVID swab was negative. She received ceftriaxone and azithromycin. She is admitted in this setting for further treated Review of Systems Review of Systems: - CONSTITUTIONAL: Denies weight loss, reports fever and chills. - HEENT: Denies changes in vision and hearing - RESPIRATORY: Reports SOB and mild cough. - CV: Denies palpitations and CP. - GI: Denies abdominal pain, nausea, vomiting and diarrhea. - : Denies dysuria and reports urinary frequency. - MSK: Denies myalgia and joint pain. - SKIN: Denies rash and pruritus. - NEUROLOGICAL: Denies headache and syncope. - PSYCHIATRIC: Denies recent changes in mood. Denies anxiety and depression. [facility] Past Medical History Medical History Anxiety GERD (gastroesophageal reflux disease) 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, degenerative History of multiple strokes Back pain Positive colorectal cancer screening using Cologuard test Insomnia Depression Overdose of antidepressant Hypertension Anemia CKD (chronic kidney disease) Hyperglycemia Surgical History Surgical History H/O: hysterectomy Family History Family History Sibling Pancreatic cancer Father Family history of lung cancer Other Family history of cardiovascular disease Social History Social History Social History: Caffeine-soda Smoking packs per day: 1 Smoking cigarettes per day: 20.0 Years smoked: 2 Smoking pack-years: 2.00 Smoking status: Former smoker Alcohol intake: former Substance use: never Substance use type: does not use Do You Feel Safe in your Home?: Yes Lack of Transportation: No Lack of Food: Never True Current Housing: I Have Housing Concerned About Future Housing: No Difficulty Paying Gas/Electric Bills: No Difficulty Paying for Meds: No Currently Unemployed: No Education: Decline to Answer Difficulty w/ Childcare or Family Care: Decline to Answer Living arrangements: assisted living Gender identity (if verbalized by the patient): Female Spiritual care concerns: No Meds Home Medications and Allergies Home Medications ?Medication ?Instructions ?Recorded ?Confirmed ?Type triamterene 37.5 1 tablet PO QAM #90 tabs 03/06/22 05/02/25 Rx mg-hydrochlorothiazide 25 mg tablet fluoxetine 40 mg capsule (Prozac) 40 mg PO DAILY #90 caps 03/29/22 05/02/25 Rx aspirin 81 mg tablet,delayed 81 mg PO DAILY #90 tabs 11/24/22 05/02/25 Rx release (Adult Low Dose Aspirin) amlodipine 5 mg tablet 5 mg PO DAILY #90 tabs 03/05/23 05/02/25 Rx atorvastatin 10 mg tablet See Rx Instructions .Route 06/27/23 05/02/25 Rx .COMPLEX #90 tabs trazodone 100 mg tablet See Rx Instructions .Route 07/05/23 05/02/25 Rx .COMPLEX #90 tabs acetaminophen 325 mg tablet 325 mg PO Q6H PRN pain 11/10/24 05/02/25 History Allergies Allergy/AdvReac Type Severity Reaction Status Date / Time Sulfa (Sulfonamide Allergy Intermediate Hives Verified 02/09/25 14:10 Antibiotics) Vital Signs Vital Signs - 24 hr 05/01/25 22:56 05/01/25 23:05 05/01/25 23:06 Temperature 99.8 F H Pulse Rate 95 94 Respiratory Rate 21 H 24 H Blood Pressure 149/63 H 156/51 H Pulse Oximetry 98 98 100 Oxygen Delivery Nasal Cannula Nasal Cannula Nasal Cannula Oxygen Flow Rate 2 1 1 05/01/25 23:06 05/02/25 00:39 05/02/25 02:48 Temperature Pulse Rate 93 89 75 Respiratory Rate 21 H 21 H 21 H Blood Pressure 156/51 H 122/50 L Pulse Oximetry 95 98 97 Oxygen Delivery Oxygen Flow Rate 05/02/25 03:57 05/02/25 06:00 05/02/25 08:00 Temperature 98.1 F Pulse Rate 75 70 Respiratory Rate 21 H 16 Blood Pressure 116/47 L Pulse Oximetry 97 94 Oxygen Delivery Room Air Room Air Oxygen Flow Rate Exam Narrative: GENERAL: Elderly, well-nourished, and in no acute distress. HEAD: Normocephalic, atraumatic. EYES: EOMI. ENT: Nares clear, no rhinorrhea or epistaxis. Mucous membranes moist. NECK: Supple. No adenopathy or masses CHEST: No respiratory distress. Rales in the bilateral lower lobes. No wheezes or rhonchi HEART: Regular rate and rhythm. No murmur heard. Normal peripheral pulses. ABDOMEN: Soft, nontender, nondistended, normal active bowel sounds. EXTREMITIES: Normal range of motion. No edema. SKIN: Warm, dry, no rash. NEURO: No focal deficits. Alert and oriented x3. PSYCH: Normal mood and affect H&P: Results Labs Labs: Short CBC 05/01/25 Range/Units 23:04 WBC 14.6 H (4.5-10.0) K/mm3 Hgb 11.3 L (12.0-15.0) g/dL Hct 35.5 L (37.0-47.0) % Plt Count 193 (150-375) k/mm3 BMP 05/01/25 23:04 Sodium 129 L Potassium 4.0 Chloride 98 Carbon Dioxide 24 BUN 23 H Creatinine 1.28 H Glucose 150 H Calcium 9.4 Liver Function 05/01/25 Range/Units 23:04 Total Bilirubin 0.7 (0.2-1.3) mg/dL AST 26 (14-36) U/L ALT 18 (6-35) U/L Alkaline Phosphatase 131 H (38-126) U/L Albumin 4.1 (3.5-5.1) g/dL Urine 05/01/25 Range/Units 23:04 Urine Color Yellow (Yellow) Urine Appearance Clear (Clear) Urine pH 6.0 (5.0-9.0) Ur Specific [place] 1.016 (1.001-1.035) Urine Protein Negative (Negative) mg/dL Urine Glucose (UA) Negative (Negative) mg/dL Assessment and Plan Assessment and plan (1) Hx of fall: Code(s): Z91.81 - History of falling Status: Acute (2) Hypertension: Qualifiers: Hypertension type: essential hypertension Qualified Code(s): I10 - Essential (primary) hypertension Code(s): I10 - Essential (primary) hypertension Status: Acute (3) Hyperlipidemia: Qualifiers: Hyperlipidemia type: mixed hyperlipidemia Qualified Code(s): E78.2 - Mixed hyperlipidemia Code(s): E78.5 - Hyperlipidemia, unspecified Status: Acute (4) Osteopenia: Code(s): M85.80 - Other specified disorders of bone density and structure, unspecified site Status: Acute (5) Hyponatremia: Code(s): E87.1 - Hypo-osmolality and hyponatremia Status: Acute (6) Stage 3b chronic kidney disease: Code(s): N18.32 - Chronic kidney disease, stage 3b Status: Acute (7) Acute UTI: Code(s): N39.0 - Urinary tract infection, site not specified Status: Acute (8) Pneumonia: Qualifiers: Laterality: bilateral Lung location: lower lobe of lung Pneumonia type: due to unspecified organism Qualified Code(s): J18.9 - Pneumonia, unspecified organism Code(s): J18.9 - Pneumonia, unspecified organism Status: Acute (9) History of multiple strokes: Code(s): Z86.73 - Personal history of transient ischemic attack (TIA), and cerebral infarction without residual deficits Status: Acute Plan This is 80-year-old female who presents to the ED for fever and chills. Patient recently finished an antibiotic for UTI. Developed fever and chills and generally unwell last evening and came to the ED for evaluation. She also reports some cough and an episode of vomiting. She denies any abdominal pain. She does report going to the bathroom more often. In ED evaluation she was mildly febrile tachypneic with temperature of 99.8? blood pressure was stable oxygen saturation 90% on room air placed on oxygen via nasal cannula. Laboratory workup revealed WBC of 14.6 hemoglobin 11.3 platelet 193 sodium low at 129. Creatinine of 1.28. Chest x-ray showed possible pneumonia CT abdomen pelvis without acute findings. UA with positive nitrate and leukocyte esterase with 6-10 WBC. Influenza RSV and COVID swab was negative. CT abdomen showed patchy ground-glass opacities of the lung bases. She received ceftriaxone and azithromycin. She is admitted in this setting for further treated Bibasilar pneumonia CT abdomen showed patchy ground-glass opacities of lung bases. Influenza RSV COVID swab was negative. Ceftriaxone azithromycin as ordered. Blood culture to follow. UTI mild a cell still present. Follow urine culture. Continue ceftriaxone and azithromycin. Hyponatremia mild Osteoarthritis History of multiple strokes CKD stage 3 Hypertension Anxiety depression DVT prophylaxis Lovenox Code status full code Hospitalist [facility] Advance Care Plan I have confirmed that the patient's Advanced Care Plan is present, code status is documented, or surrogate decision maker is listed in patient medical record.: Yes Medication Reconciliation I have utilized all available resources to obtain, update and review the patients current medications (includes all prescriptions, OTC, herbals, cannabis, and nutritional supplements).: Yes
[2025-05-02] MEDS: ACETAMINOPHEN 325 MG TABLET PO (15:02)
--- NOTE | 2025-05-02 15:02 | PCPTNOTE ---
1504 Patient declines getting OOB for physical therapy. Reports she has a COPPOLA and would rather wait until tomorrow, checked with nursing and they are fine with that.
[2025-05-02] MEDS: amLODIPine BESYLATE 5 MG TABLET PO (16:54)
[2025-05-02] MEDS: traZODone HCL 50 MG TABLET 100 MG BY MOUTH (20:45)
[2025-05-02] MEDS: ACETAMINOPHEN 325 MG TABLET 650 MG PO (20:45)
[2025-05-03 06:00] VITALS: BP 133/47; PULSE 78; RESP 18; TEMP 36.1; O2SAT 92
[2025-05-03 06:34] LABS: Basophils Percent Auto 0.4 % (0.2-1.2); Eosinophils Absolute Auto 0.1 K/mm3 (0-0.3); Eosinophils Percent Auto 0.7 % (0-4.4); Hematocrit 35.5 % (37.0-47.0); Hemoglobin 10.9 g/dL (12.0-15.0); Immature Granulocyte Absolute 0.03 K/mm3 (0.00-0.031); Immature Granulocyte Percent A 0.3 % (0-0.5); Lymphocytes Percent Auto 10.6 % (18.3-44.2); Mean Corpuscular HGB Conc 30.7 g/dl (32-36); Mean Corpuscular Hemoglobin 29.1 pg (26-34); Mean Corpuscular Volume 94.9 fl (80-100); Mean Platelet Volume 12.3 fl (7.4-10.4); Monocytes Absolute Auto 0.9 K/mm3 (0.1-0.6); Monocytes Percent Auto 9.7 % (2.6-8.5); Neutrophils Absolute Auto 7.4 K/mm3 (1.3-6.7); Neutrophils Percent Auto 78.3 % (45.5-73.1); Platelet Count Result 185 k/mm3 (150-375); Red Blood Count 3.74 M/mm3 (4.2-5.4); Red Cell Distribution Width 13.2 % (11.5-14.5); White Blood Count 9.5 K/mm3 (4.5-10.0)
[2025-05-03 06:44] LABS: Alanine Aminotransferase 12 U/L (6-35); Albumin Level 3.5 g/dL (3.5-5.1); Alkaline Phosphatase 109 U/L (38-126); Anion Gap 6 mmol/L (4-12); Aspartate Amino Transferase 18 U/L (14-36); Bilirubin,Total 0.4 mg/dL (0.2-1.3); Blood Urea Nitrogen 14 mg/dL (7-17); Calcium 9.2 mg/dL (8.4-10.2); Carbon Dioxide 27 mmol/L (22-30); Chloride 103 mmol/L (98-107); Estimated CRCL calculation 31 ml/min; Estimated Glomerular Filt Rate 45; Glucose 103 mg/dL (65-110); Potassium 3.7 mmol/L (3.4-5.0); Sodium 136 mmol/L (137-145); Total Protein 6.3 g/dL (6.3-8.2)
[2025-05-03 09:12] VITALS: O2SAT 92
[2025-05-03] MEDS: ASPIRIN 81 MG ENTERIC TABLET PO (09:29)
[2025-05-03] MEDS: ENOXAPARIN 30 MG/0.3 ML SYRINGE SUB-Q (09:29)
[2025-05-03] MEDS: FLUoxetine HCL 20 MG CAPSULE 40 MG PO (09:29)
[2025-05-03] MEDS: ATORVASTATIN 10 MG TABLET BY MOUTH (09:30)
[2025-05-03] MEDS: amLODIPine BESYLATE 5 MG TABLET PO (09:30)
--- NOTE | 2025-05-03 13:42 | PM.IMPN ---
Progress Note: A&P Assessment and Plan (1) Hx of fall: Code(s): Z91.81 - History of falling Status: Acute (2) Hypertension: Qualifiers: Hypertension type: essential hypertension Qualified Code(s): I10 - Essential (primary) hypertension Code(s): I10 - Essential (primary) hypertension Status: Acute (3) Hyperlipidemia: Qualifiers: Hyperlipidemia type: mixed hyperlipidemia Qualified Code(s): E78.2 - Mixed hyperlipidemia Code(s): E78.5 - Hyperlipidemia, unspecified Status: Acute (4) Osteopenia: Code(s): M85.80 - Other specified disorders of bone density and structure, unspecified site Status: Acute (5) Hyponatremia: Code(s): E87.1 - Hypo-osmolality and hyponatremia Status: Acute (6) Stage 3b chronic kidney disease: Code(s): N18.32 - Chronic kidney disease, stage 3b Status: Acute (7) Acute UTI: Code(s): N39.0 - Urinary tract infection, site not specified Status: Acute (8) Pneumonia: Qualifiers: Laterality: bilateral Lung location: lower lobe of lung Pneumonia type: due to unspecified organism Qualified Code(s): J18.9 - Pneumonia, unspecified organism Code(s): J18.9 - Pneumonia, unspecified organism Status: Acute (9) History of multiple strokes: Code(s): Z86.73 - Personal history of transient ischemic attack (TIA), and cerebral infarction without residual deficits Status: Acute Plan This is 80-year-old female who presents to the ED for fever and chills. Patient recently finished an antibiotic for UTI. Developed fever and chills and generally unwell last evening and came to the ED for evaluation. She also reports some cough and an episode of vomiting. She denies any abdominal pain. She does report going to the bathroom more often. In ED evaluation she was mildly febrile tachypneic with temperature of 99.8? blood pressure was stable oxygen saturation 90% on room air placed on oxygen via nasal cannula. Laboratory workup revealed WBC of 14.6 hemoglobin 11.3 platelet 193 sodium low at 129. Creatinine of 1.28. Chest x-ray showed possible pneumonia CT abdomen pelvis without acute findings. UA with positive nitrate and leukocyte esterase with 6-10 WBC. Influenza RSV and COVID swab was negative. CT abdomen showed patchy ground-glass opacities of the lung bases. She received ceftriaxone and azithromycin. She is admitted in this setting for further treated Bibasilar pneumonia CT abdomen showed patchy ground-glass opacities of lung bases. Influenza RSV COVID swab was negative. Ceftriaxone azithromycin as ordered. Blood culture to follow. UTI mild a cell still present. Follow urine culture. Continue ceftriaxone and azithromycin. Urine culture with E coli. Sensitive to ceftriaxone Hyponatremia mild Osteoarthritis History of multiple strokes CKD stage 3 Hypertension Anxiety depression DVT prophylaxis Lovenox Code status full code Subjective Date/time seen: 05/03/25 13:42 Interval history: Remains afebrile. No new Complaints. Minimal cough. Still has urine frequency Review of Systems Review of Systems: All systems reviewed & are unremarkable except as noted in HPI and below Exam Narrative: GENERAL: Elderly, well-nourished, and in no acute distress. HEAD: Normocephalic, atraumatic. EYES: EOMI. ENT: Nares clear, no rhinorrhea or epistaxis. Mucous membranes moist. NECK: Supple. No adenopathy or masses CHEST: No respiratory distress. Rales in the bilateral lower lobes. No wheezes or rhonchi HEART: Regular rate and rhythm. No murmur heard. Normal peripheral pulses. ABDOMEN: Soft, nontender, nondistended, normal active bowel sounds. EXTREMITIES: Normal range of motion. No edema. SKIN: Warm, dry, no rash. NEURO: No focal deficits. Alert and oriented x3. PSYCH: Normal mood and affect Objective Data Vital Signs Vital Signs: Vital Signs - 24 hr 05/02/25 14:00 05/02/25 14:25 05/02/25 20:00 Temperature 99.2 F Pulse Rate 87 82 Respiratory Rate 16 18 Blood Pressure 141/50 H Pulse Oximetry 93 90 Oxygen Delivery Room Air Room Air 05/02/25 22:00 05/03/25 06:00 05/03/25 08:00 Temperature 96.8 F L 96.9 F L Pulse Rate 82 78 Respiratory Rate 18 18 Blood Pressure 130/42 L 133/47 L Pulse Oximetry 90 92 Oxygen Delivery Room Air 05/03/25 09:12 05/03/25 10:39 Temperature Pulse Rate Respiratory Rate Blood Pressure Pulse Oximetry 92 Oxygen Delivery Room Air Room Air Intake/Output Intake/Output: Intake & Output 04/30/25 05/01/25 05/02/2515/25 23:59 23:59 23:59 23:59 Intake Total 3180 440 Output Total 1000 Balance 3180 -560 Meds/Results Medications: Active Medications Generic Name Dose Route Start Last Admin Trade Name Freq PRN Reason Stop Dose Admin Acetaminophen 650 mg 05/02/25 17:51 05/02/25 20:45 Acetaminophen 325 Mg Tablet PO 650 mg Q4H PRN Administration Headache, PAIN, OR FEVER Amlodipine Besylate 5 mg 05/02/25 14:05 05/03/25 09:30 Amlodipine Besylate 5 Mg Tablet PO 5 mg DAILY KIMBERLY Administration Aspirin 81 mg 05/03/25 09:00 05/03/25 09:29 Aspirin 81 Mg Enteric Tablet PO 81 mg DAILY KIMBERLY Administration Atorvastatin Calcium 10 mg 05/03/25 09:00 05/03/25 09:30 Atorvastatin 10 Mg Tablet BY MOUTH 10 mg DAILY KIMBERLY Administration Enoxaparin Sodium 30 mg 05/03/25 09:00 05/03/25 09:29 Enoxaparin 30 Mg/0.3 Ml Syringe SUB-Q 30 mg DAILY KIMBERLY Administration Fluoxetine HCl 40 mg 05/03/25 09:00 05/03/25 09:29 Fluoxetine Hcl 20 Mg Capsule PO 40 mg DAILY KIMBERLY Administration Ceftriaxone Sodium 1 gm in 50 mls @ 100 mls/hr 05/02/25 22:00 05/02/25 22:24 Rocephin 1 Gm/Ns 50 Ml IVPB Infused Q24H KIMBERLY Infusion Azithromycin 500 mg in 250 mls @ 250 mls/hr 05/02/25 23:00 05/02/25 23:29 Zithromax IVPB Infused Q24H KIMBERLY Infusion Trazodone HCl 100 mg 05/02/25 21:00 05/02/25 20:45 Trazodone Hcl 50 Mg Tablet BY MOUTH 100 mg HS KIMBERLY Administration Triamterene/Hydrochlorothiazide 1 tab 05/03/25 09:00 Triamterene 37.5 Mg/Hctz 25 Mg (Maxzide) Tablet PO QAM [facility] Radiology Results: ITS Impressions Chest X-Ray 05/01/25 23:43 IMPRESSION: Bilateral basal atelectasis versus pneumonia. Abdomen/Pelvis CT 05/02/25 06:34 IMPRESSION: 1. No acute abdominal abnormality. Labs Labs: Laboratory Results - last 24 hr 05/03/25 06:05 WBC 9.5 RBC 3.74 L Hgb 10.9 L Hct 35.5 L MCV 94.9 MCH 29.1 MCHC 30.7 L RDW 13.2 Plt Count 185 MPV 12.3 H Immature Gran % (Auto) 0.3 Neut % (Auto) 78.3 H Lymph % (Auto) 10.6 L [place] % (Auto) 9.7 H Eos % (Auto) 0.7 Baso % (Auto) 0.4 Lymph # (Auto) 1.00 [place] # (Auto) 0.9 H Eos # (Auto) 0.1 Baso # (Auto) 0.0 Abs Immat Gran (auto) 0.03 Absolute Neuts (auto) 7.4 H Absolute Nucleated RBC 0.000 Nucleated RBC % 0.0 Sodium 136 L Potassium 3.7 Chloride 103 Carbon Dioxide 27 Anion Gap 6 BUN 14 D Creatinine 1.16 H Estim Creat Clear Calc 31 Estimated GFR 45 L Glucose 103 Calcium 9.2 Magnesium 2.0 Total Bilirubin 0.4 AST 18 ALT 12 Alkaline Phosphatase 109 Total Protein 6.3 Albumin 3.5
[2025-05-03 14:00] VITALS: BP 123/45; PULSE 71; RESP 18; TEMP 36.1; O2SAT 97
[2025-05-03] MEDS: TRIAMTERENE 37.5 MG/HCTZ 25 MG (MAXZIDE) TABLET 1 TAB PO (17:27)
[2025-05-03 20:30] VITALS: PULSE 77; RESP 20; O2SAT 90
[2025-05-03] MEDS: traZODone HCL 50 MG TABLET 100 MG BY MOUTH (20:48)
[2025-05-03] MEDS: guaiFENesin 12 HR 600 MG TABCR PO (20:48)
[2025-05-03 22:00] VITALS: BP 149/49; PULSE 78; RESP 18; TEMP 36.4; O2SAT 91
[2025-05-03] MEDS: AZITHROMYCIN 500 MG/NS 250 ML 500 MG/250 ML BAG 250 MG IVPB (22:19)
[2025-05-04 05:57] LABS: Basophils Absolute Auto 0.1 K/mm3 (0.0-0.1); Basophils Percent Auto 0.6 % (0.2-1.2); Eosinophils Absolute Auto 0.2 K/mm3 (0-0.3); Eosinophils Percent Auto 1.8 % (0-4.4); Hematocrit 33.4 % (37.0-47.0); Hemoglobin 10.4 g/dL (12.0-15.0); Immature Granulocyte Absolute 0.02 K/mm3 (0.00-0.031); Immature Granulocyte Percent A 0.2 % (0-0.5); Lymphocytes Absolute Auto 1.14 K/mm3 (0.9-3.2); Lymphocytes Percent Auto 13.3 % (18.3-44.2); Mean Corpuscular HGB Conc 31.1 g/dl (32-36); Mean Corpuscular Hemoglobin 29.5 pg (26-34); Mean Corpuscular Volume 94.6 fl (80-100); Monocytes Absolute Auto 0.9 K/mm3 (0.1-0.6); Monocytes Percent Auto 10.5 % (2.6-8.5); Neutrophils Absolute Auto 6.3 K/mm3 (1.3-6.7); Neutrophils Percent Auto 73.6 % (45.5-73.1); Platelet Count Result 190 k/mm3 (150-375); Red Blood Count 3.53 M/mm3 (4.2-5.4); Red Cell Distribution Width 13.1 % (11.5-14.5); White Blood Count 8.6 K/mm3 (4.5-10.0)
[2025-05-04 06:00] VITALS: BP 144/47; PULSE 72; RESP 18; TEMP 36.3; O2SAT 92
[2025-05-04 06:06] LABS: Alanine Aminotransferase 14 U/L (6-35); Albumin Level 3.4 g/dL (3.5-5.1); Alkaline Phosphatase 103 U/L (38-126); Anion Gap 6 mmol/L (4-12); Aspartate Amino Transferase 24 U/L (14-36); Bilirubin,Total 0.3 mg/dL (0.2-1.3); Blood Urea Nitrogen 17 mg/dL (7-17); Calcium 9.1 mg/dL (8.4-10.2); Carbon Dioxide 27 mmol/L (22-30); Chloride 103 mmol/L (98-107); Estimated CRCL calculation 29 ml/min; Estimated Glomerular Filt Rate 43; Glucose 106 mg/dL (65-110); Potassium 3.7 mmol/L (3.4-5.0); Sodium 136 mmol/L (137-145); Total Protein 6.1 g/dL (6.3-8.2)
[2025-05-04] MEDS: FLUoxetine HCL 20 MG CAPSULE 40 MG PO (08:43)
[2025-05-04] MEDS: guaiFENesin 12 HR 600 MG TABCR PO ×2 (08:43→21:12)
[2025-05-04] MEDS: TRIAMTERENE 37.5 MG/HCTZ 25 MG (MAXZIDE) TABLET 1 TAB PO (08:43)
[2025-05-04] MEDS: amLODIPine BESYLATE 5 MG TABLET PO (08:43)
[2025-05-04] MEDS: ATORVASTATIN 10 MG TABLET BY MOUTH (08:43)
[2025-05-04] MEDS: ASPIRIN 81 MG ENTERIC TABLET PO (08:43)
[2025-05-04] MEDS: ENOXAPARIN 30 MG/0.3 ML SYRINGE SUB-Q (08:52)
[2025-05-04] MEDS: ACETAMINOPHEN 325 MG TABLET 650 MG PO ×2 (13:17→19:33)
[2025-05-04 14:00] VITALS: BP 132/49; PULSE 76; RESP 18; TEMP 36.5; O2SAT 94
--- NOTE | 2025-05-04 15:19 | P.PNIM_ITS ---
Progress Note: A&P Assessment and Plan (1) Hx of fall: Code(s): Z91.81 - History of falling Status: Acute (2) Hypertension: Qualifiers: Hypertension type: essential hypertension Qualified Code(s): I10 - Essential (primary) hypertension Code(s): I10 - Essential (primary) hypertension Status: Acute (3) Hyperlipidemia: Qualifiers: Hyperlipidemia type: mixed hyperlipidemia Qualified Code(s): E78.2 - Mixed hyperlipidemia Code(s): E78.5 - Hyperlipidemia, unspecified Status: Acute (4) Osteopenia: Code(s): M85.80 - Other specified disorders of bone density and structure, unspecified site Status: Acute (5) Hyponatremia: Code(s): E87.1 - Hypo-osmolality and hyponatremia Status: Acute (6) Stage 3b chronic kidney disease: Code(s): N18.32 - Chronic kidney disease, stage 3b Status: Acute (7) Acute UTI: Code(s): N39.0 - Urinary tract infection, site not specified Status: Acute (8) Pneumonia: Qualifiers: Laterality: bilateral Lung location: lower lobe of lung Pneumonia type: due to unspecified organism Qualified Code(s): J18.9 - Pneumonia, unspecified organism Code(s): J18.9 - Pneumonia, unspecified organism Status: Acute (9) History of multiple strokes: Code(s): Z86.73 - Personal history of transient ischemic attack (TIA), and cerebral infarction without residual deficits Status: Acute Plan This is 80-year-old female who presents to the ED for fever and chills. Patient recently finished an antibiotic for UTI. Developed fever and chills and generally unwell last evening and came to the ED for evaluation. She also reports some cough and an episode of vomiting. She denies any abdominal pain. She does report going to the bathroom more often. In ED evaluation she was mildly febrile tachypneic with temperature of 99.8? blood pressure was stable oxygen saturation 90% on room air placed on oxygen via nasal cannula. Laboratory workup revealed WBC of 14.6 hemoglobin 11.3 platelet 193 sodium low at 129. Creatinine of 1.28. Chest x-ray showed possible pneumonia CT abdomen pelvis without acute findings. UA with positive nitrate and leukocyte esterase with 6-10 WBC. Influenza RSV and COVID swab was negative. CT abdomen showed patchy ground-glass opacities of the lung bases. She received ceftriaxone and azithromycin. She is admitted in this setting for further treated Bibasilar pneumonia CT abdomen showed patchy ground-glass opacities of lung bases. Influenza RSV COVID swab was negative. Ceftriaxone azithromycin as ordered. Blood culture to follow which is no growth today. Will switch to oral antibiotics UTI mild a cell still present. Follow urine culture. Continue ceftriaxone and azithromycin. Urine culture with E coli. Sensitive to ceftriaxone will switch to oral antibiotics Hyponatremia mild Osteoarthritis History of multiple strokes CKD stage 3 Hypertension Anxiety depression DVT prophylaxis Lovenox Code status full code Subjective Date/time seen: 05/04/25 15:19 Interval history: Does bit cold. No other complaints. Denies any cough. Still has urinary frequency Review of Systems Review of Systems: All systems reviewed & are unremarkable except as noted in HPI and below Exam Narrative: GENERAL: Elderly, well-nourished, and in no acute distress. HEAD: Normocephalic, atraumatic. EYES: EOMI. ENT: Nares clear, no rhinorrhea or epistaxis. Mucous membranes moist. NECK: Supple. No adenopathy or masses CHEST: No respiratory distress. Rales in the bilateral lower lobes. No wheezes or rhonchi HEART: Regular rate and rhythm. No murmur heard. Normal peripheral pulses. ABDOMEN: Soft, nontender, nondistended, normal active bowel sounds. EXTREMITIES: Normal range of motion. No edema. SKIN: Warm, dry, no rash. NEURO: No focal deficits. Alert and oriented x3. PSYCH: Normal mood and affect Objective Data Vital Signs Vital Signs: Vital Signs - 24 hr 05/03/25 20:00 05/03/25 20:30 05/03/25 22:00 Temperature 97.6 F Pulse Rate 77 78 Respiratory Rate 20 18 Blood Pressure 149/49 H Pulse Oximetry 90 91 Oxygen Delivery Room Air Room Air Fraction of Inspired Oxygen 21 05/04/25 06:00 05/04/25 08:00 05/04/25 14:00 Temperature 97.4 F L 97.7 F Pulse Rate 72 76 Respiratory Rate 18 18 Blood Pressure 144/47 H 132/49 L Pulse Oximetry 92 94 Oxygen Delivery Room Air Fraction of Inspired Oxygen Intake/Output Intake/Output: Intake & Output 05/01/25 05/02/25 05/03/25 05/04/25 23:59 23:59 23:59 23:59 Intake Total 3180 924.2 1022 Output Total 1600 900 Balance 8140 -225.8 122 Meds/Results Medications: Active Medications Generic Name Dose Route Start Last Admin Trade Name Freq PRN Reason Stop Dose Admin Acetaminophen 650 mg 05/02/25 17:51 05/04/25 13:17 Acetaminophen 325 Mg Tablet PO 650 mg Q4H PRN Administration Headache, PAIN, OR FEVER Amlodipine Besylate 5 mg 05/02/25 14:05 05/04/25 08:43 Amlodipine Besylate 5 Mg Tablet PO 5 mg DAILY KIMBERLY Administration Aspirin 81 mg 05/03/25 09:00 05/04/25 08:43 Aspirin 81 Mg Enteric Tablet PO 81 mg DAILY KIMBERLY Administration Atorvastatin Calcium 10 mg 05/03/25 09:00 05/04/25 08:43 Atorvastatin 10 Mg Tablet BY MOUTH 10 mg DAILY KIMBERLY Administration Azithromycin 500 mg 05/04/25 21:00 Azithromycin 250 Mg Tablet PO 05/05/25 21:01 QHS [facility] Cefdinir 300 mg 05/04/25 21:00 Cefdinir 300 Mg Capsule PO 05/07/25 21:01 QHS [facility] Enoxaparin Sodium 30 mg 05/03/25 09:00 05/04/25 08:52 Enoxaparin 30 Mg/0.3 Ml Syringe SUB-Q 30 mg DAILY [facility] Administration Fluoxetine HCl 40 mg 05/03/25 09:00 05/04/25 08:43 Fluoxetine Hcl 20 Mg Capsule PO 40 mg DAILY KIMBERLY Administration Guaifenesin 600 mg 05/03/25 21:00 05/04/25 08:43 Guaifenesin 12 Hr 600 Mg Tabcr PO 600 mg Q12HR KIMBERLY Administration Trazodone HCl 100 mg 05/02/25 21:00 05/03/25 20:48 Trazodone Hcl 50 Mg Tablet BY MOUTH 100 mg HS [facility] Administration Triamterene/Hydrochlorothiazide 1 tab 05/03/25 09:00 05/04/25 08:43 Triamterene 37.5 Mg/Hctz 25 Mg (Maxzide) Tablet PO 1 tab QAM KIMBERLY Administration Radiology Results: ITS Impressions Chest X-Ray 05/01/25 23:43 IMPRESSION: Bilateral basal atelectasis versus pneumonia. Abdomen/Pelvis CT 05/02/25 06:34 IMPRESSION: 1. No acute abdominal abnormality. Labs Labs: Laboratory Results - last 24 hr 05/04/25 05:41 WBC 8.6 RBC 3.53 L Hgb 10.4 L Hct 33.4 L MCV 94.6 MCH 29.5 MCHC 31.1 L RDW 13.1 Plt Count 190 MPV 12.0 H Immature Gran % (Auto) 0.2 Neut % (Auto) 73.6 H Lymph % (Auto) 13.3 L [place] % (Auto) 10.5 H Eos % (Auto) 1.8 Baso % (Auto) 0.6 Lymph # (Auto) 1.14 [place] # (Auto) 0.9 H Eos # (Auto) 0.2 Baso # (Auto) 0.1 Abs Immat Gran (auto) 0.02 Absolute Neuts (auto) 6.3 Absolute Nucleated RBC 0.000 Nucleated RBC % 0.0 Sodium 136 L Potassium 3.7 Chloride 103 Carbon Dioxide 27 Anion Gap 6 BUN 17 Creatinine 1.21 H Estim Creat Clear Calc 29 Estimated GFR 43 L Glucose 106 Calcium 9.1 Magnesium 2.0 Total Bilirubin 0.3 AST 24 ALT 14 Alkaline Phosphatase 103 Total Protein 6.1 L Albumin 3.4 L
[2025-05-04] MEDS: traZODone HCL 50 MG TABLET 100 MG BY MOUTH (21:11)
[2025-05-04] MEDS: CEFDINIR 300 MG CAPSULE PO (21:11)
[2025-05-04] MEDS: AZITHROMYCIN 250 MG TABLET 500 MG PO (21:12)
[2025-05-04 22:00] VITALS: BP 153/66; PULSE 69; RESP 18; TEMP 36.6; O2SAT 96
[2025-05-05 06:00] VITALS: BP 148/62; PULSE 66; RESP 16; TEMP 36.6; O2SAT 94
[2025-05-05 06:31] LABS: Basophils Absolute Auto 0.1 K/mm3 (0.0-0.1); Basophils Percent Auto 0.6 % (0.2-1.2); Eosinophils Absolute Auto 0.2 K/mm3 (0-0.3); Eosinophils Percent Auto 1.9 % (0-4.4); Hematocrit 34.8 % (37.0-47.0); Hemoglobin 10.9 g/dL (12.0-15.0); Immature Granulocyte Absolute 0.02 K/mm3 (0.00-0.031); Immature Granulocyte Percent A 0.3 % (0-0.5); Lymphocytes Absolute Auto 1.03 K/mm3 (0.9-3.2); Lymphocytes Percent Auto 13.2 % (18.3-44.2); Mean Corpuscular HGB Conc 31.3 g/dl (32-36); Mean Corpuscular Hemoglobin 29.7 pg (26-34); Mean Corpuscular Volume 94.8 fl (80-100); Mean Platelet Volume 12.5 fl (7.4-10.4); Monocytes Absolute Auto 0.9 K/mm3 (0.1-0.6); Neutrophils Absolute Auto 5.6 K/mm3 (1.3-6.7); Platelet Count Result 233 k/mm3 (150-375); Red Blood Count 3.67 M/mm3 (4.2-5.4); White Blood Count 7.8 K/mm3 (4.5-10.0)
[2025-05-05 06:51] LABS: Alanine Aminotransferase 14 U/L (6-35); Albumin Level 3.4 g/dL (3.5-5.1); Alkaline Phosphatase 110 U/L (38-126); Anion Gap 7 mmol/L (4-12); Aspartate Amino Transferase 20 U/L (14-36); Bilirubin,Total 0.4 mg/dL (0.2-1.3); Blood Urea Nitrogen 19 mg/dL (7-17); Calcium 9.1 mg/dL (8.4-10.2); Carbon Dioxide 26 mmol/L (22-30); Chloride 102 mmol/L (98-107); Estimated CRCL calculation 30 ml/min; Estimated Glomerular Filt Rate 43; Glucose 99 mg/dL (65-110); Potassium 3.9 mmol/L (3.4-5.0); Sodium 135 mmol/L (137-145); Total Protein 6.2 g/dL (6.3-8.2)
[2025-05-05] MEDS: FLUoxetine HCL 20 MG CAPSULE 40 MG PO (08:10)
[2025-05-05] MEDS: guaiFENesin 12 HR 600 MG TABCR PO ×2 (08:11→21:23)
[2025-05-05] MEDS: TRIAMTERENE 37.5 MG/HCTZ 25 MG (MAXZIDE) TABLET 1 TAB PO (08:11)
[2025-05-05] MEDS: ENOXAPARIN 30 MG/0.3 ML SYRINGE SUB-Q (08:11)
[2025-05-05] MEDS: ATORVASTATIN 10 MG TABLET BY MOUTH (08:11)
[2025-05-05] MEDS: amLODIPine BESYLATE 5 MG TABLET PO (08:11)
[2025-05-05] MEDS: ASPIRIN 81 MG ENTERIC TABLET PO (08:11)
[2025-05-05] MEDS: COLCHICINE 0.6 MG TABLET PO (09:37)
[2025-05-05] MEDS: ACETAMINOPHEN 325 MG TABLET 650 MG PO (09:37)
[2025-05-05 13:29] VITALS: BP 121/39; PULSE 74; RESP 20; TEMP 36.3; O2SAT 100
[2025-05-05 13:30] VITALS: BP 131/46
--- NOTE | 2025-05-05 13:50 | P.PNIM_ITS ---
Progress Note: A&P Assessment and Plan (1) Hx of fall: Code(s): Z91.81 - History of falling Status: Acute (2) Hypertension: Qualifiers: Hypertension type: essential hypertension Qualified Code(s): I10 - Essential (primary) hypertension Code(s): I10 - Essential (primary) hypertension Status: Acute (3) Hyperlipidemia: Qualifiers: Hyperlipidemia type: mixed hyperlipidemia Qualified Code(s): E78.2 - Mixed hyperlipidemia Code(s): E78.5 - Hyperlipidemia, unspecified Status: Acute (4) Osteopenia: Code(s): M85.80 - Other specified disorders of bone density and structure, unspecified site Status: Acute (5) Hyponatremia: Code(s): E87.1 - Hypo-osmolality and hyponatremia Status: Acute (6) Stage 3b chronic kidney disease: Code(s): N18.32 - Chronic kidney disease, stage 3b Status: Acute (7) Acute UTI: Code(s): N39.0 - Urinary tract infection, site not specified Status: Acute (8) Pneumonia: Qualifiers: Laterality: bilateral Lung location: lower lobe of lung Pneumonia type: due to unspecified organism Qualified Code(s): J18.9 - Pneumonia, unspecified organism Code(s): J18.9 - Pneumonia, unspecified organism Status: Acute (9) History of multiple strokes: Code(s): Z86.73 - Personal history of transient ischemic attack (TIA), and cerebral infarction without residual deficits Status: Acute Plan This is 80-year-old female who presents to the ED for fever and chills. Patient recently finished an antibiotic for UTI. Developed fever and chills and generally unwell last evening and came to the ED for evaluation. She also reports some cough and an episode of vomiting. She denies any abdominal pain. She does report going to the bathroom more often. In ED evaluation she was mildly febrile tachypneic with temperature of 99.8? blood pressure was stable oxygen saturation 90% on room air placed on oxygen via nasal cannula. Laboratory workup revealed WBC of 14.6 hemoglobin 11.3 platelet 193 sodium low at 129. Creatinine of 1.28. Chest x-ray showed possible pneumonia CT abdomen pelvis without acute findings. UA with positive nitrate and leukocyte esterase with 6-10 WBC. Influenza RSV and COVID swab was negative. CT abdomen showed patchy ground-glass opacities of the lung bases. She received ceftriaxone and azithromycin. She is admitted in this setting for further treated Bibasilar pneumonia CT abdomen showed patchy ground-glass opacities of lung bases. Influenza RSV COVID swab was negative. Ceftriaxone azithromycin as ordered. Blood culture to follow which is no growth today. Switched to oral. UTI mild pus cells still present. Follow urine culture. Continue ceftriaxone and azithromycin. Urine culture with E coli. Sensitive to ceftriaxone will switch to oral antibiotics Hyponatremia mild Osteoarthritis Bilateral foot pain will get x-rays. Check uric acid give colchicine. History of hyperuricemia in the past noted. Also on hydrochlorothiazide at home may consider switching at discharge. History of multiple strokes CKD stage 3 Hypertension Anxiety depression DVT prophylaxis Lovenox Code status full code Subjective Date/time seen: 05/05/25 13:50 Interval history: Patient complains of having bilateral foot pain. Remains afebrile. Coughing less. Feels weak. Review of Systems Review of Systems: All systems reviewed & are unremarkable except as noted in HPI and below Exam Narrative: GENERAL: Elderly, well-nourished, and in no acute distress. HEAD: Normocephalic, atraumatic. EYES: EOMI. ENT: Nares clear, no rhinorrhea or epistaxis. Mucous membranes moist. NECK: Supple. No adenopathy or masses CHEST: No respiratory distress. Rales in the bilateral lower lobes. No wheezes or rhonchi HEART: Regular rate and rhythm. No murmur heard. Normal peripheral pulses. ABDOMEN: Soft, nontender, nondistended, normal active bowel sounds. EXTREMITIES: Normal range of motion. No edema. SKIN: Warm, dry, no rash. NEURO: No focal deficits. Alert and oriented x3. PSYCH: Normal mood and affect Objective Data Vital Signs Vital Signs: Vital Signs - 24 hr 05/04/25 14:00 05/04/25 20:00 05/04/25 22:00 Temperature 97.7 F 97.9 F Pulse Rate 76 69 Respiratory Rate 18 18 Blood Pressure 132/49 L 153/66 H Pulse Oximetry 94 96 Oxygen Delivery Room Air 05/05/25 06:00 05/05/25 08:00 05/05/25 13:29 Temperature 98 F 97.3 F L Pulse Rate 66 74 Respiratory Rate 16 20 Blood Pressure 148/62 H 121/39 L Pulse Oximetry 94 100 Oxygen Delivery Room Air 05/05/25 13:30 Temperature Pulse Rate Respiratory Rate Blood Pressure 131/46 L Pulse Oximetry Oxygen Delivery Intake/Output Intake/Output: Intake & Output 05/02/25 05/03/25 05/04/25 05/05/25 23:59 23:59 23:59 23:59 Intake Total 3180 924.2 1644 877 Output Total 1600 1100 1100 Balance 3180 -675.8 715 -784 Meds/Results Medications: Active Medications Generic Name Dose Route Start Last Admin Trade Name Freq PRN Reason Stop Dose Admin Acetaminophen 650 mg 05/02/25 17:51 05/05/25 09:37 Acetaminophen 325 Mg Tablet PO 650 mg Q4H PRN Administration Headache, PAIN, OR FEVER Amlodipine Besylate 5 mg 05/02/25 14:05 05/05/25 08:11 Amlodipine Besylate 5 Mg Tablet PO 5 mg DAILY KIMBERLY Administration Aspirin 81 mg 05/03/25 09:00 05/05/25 08:11 Aspirin 81 Mg Enteric Tablet PO 81 mg DAILY KIMBERLY Administration Atorvastatin Calcium 10 mg 05/03/25 09:00 05/05/25 08:11 Atorvastatin 10 Mg Tablet BY MOUTH 10 mg DAILY KIMBERLY Administration Azithromycin 500 mg 05/04/25 21:00 05/04/25 21:12 Azithromycin 250 Mg Tablet PO 05/05/25 21:01 500 mg QHS KIMBERLY Administration Cefdinir 300 mg 05/04/25 21:00 05/04/25 21:11 Cefdinir 300 Mg Capsule PO 05/07/25 21:01 300 mg QHS KIMBERLY Administration Enoxaparin Sodium 30 mg 05/03/25 09:00 05/05/25 08:11 Enoxaparin 30 Mg/0.3 Ml Syringe SUB-Q 30 mg DAILY KIMBERLY Administration Fluoxetine HCl 40 mg 05/03/25 09:00 05/05/25 08:10 Fluoxetine Hcl 20 Mg Capsule PO 40 mg DAILY KIMBERLY Administration Guaifenesin 600 mg 05/03/25 21:00 05/05/25 08:11 Guaifenesin 12 Hr 600 Mg Tabcr PO 600 mg Q12HR KIMBERLY Administration Trazodone HCl 100 mg 05/02/25 21:00 05/04/25 21:11 Trazodone Hcl 50 Mg Tablet BY MOUTH 100 mg HS KIMBERLY Administration Triamterene/Hydrochlorothiazide 1 tab 05/03/25 09:00 05/05/25 08:11 Triamterene 37.5 Mg/Hctz 25 Mg (Maxzide) Tablet PO 1 tab QAM KIMBERLY Administration Radiology Results: ITS Impressions Abdomen/Pelvis CT 05/02/25 06:34 IMPRESSION: 1. No acute abdominal abnormality. Ankle X-Ray 05/05/25 10:47 IMPRESSION: 1. Prominent soft tissue swelling overlying the medial aspect of the heads of the first metatarsals where there are erosions with typical location and appearance for gout. Potential additional erosion at the medial distal left cuboid. 2. Polyarticular osteoarthritis at the bilateral feet and ankles, moderate severity at the first metatarsophalangeal and left second-fourth distal inte rphalangeal joints and otherwise mild. 3. Small right-sided and moderate left-sided Achilles calcaneal spurs. Ankle X-Ray 05/05/25 10:47 IMPRESSION: 1. Prominent soft tissue swelling overlying the medial aspect of the heads of the first metatarsals where there are erosions with typical location and appearance for gout. Potential additional erosion at the medial distal left cuboid. 2. 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 3. Small right-sided and moderate left-sided Achilles calcaneal spurs. Foot X-Ray 05/05/25 10:47 IMPRESSION: 1. Prominent soft tissue swelling overlying the medial aspect of the heads of the first metatarsals where there are erosions with typical location and appearance for gout. Potential additional erosion at the medial distal left cuboid. 2. 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 3. Small right-sided and moderate left-sided Achilles calcaneal spurs. Foot X-Ray 05/05/25 10:47 IMPRESSION: 1. Prominent soft tissue swelling overlying the medial aspect of the heads of the first metatarsals where there are erosions with typical location and appearance for gout. Potential additional erosion at the medial distal left cuboid. 2. 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 3. Small right-sided and moderate left-sided Achilles calcaneal spurs. Chest X-Ray 05/05/25 11:12 IMPRESSION: 1. Improving bibasilar atelectasis and/or pneumonia. Labs Labs: Laboratory Results - last 24 hr 05/05/25 05/05/25 05:39 05:43 WBC 7.8 RBC 3.67 L Hgb 10.9 L Hct 34.8 L MCV 94.8 MCH 29.7 MCHC 31.3 L RDW 13.0 Plt Count 233 MPV 12.5 H Immature Gran % (Auto) 0.3 Neut % (Auto) 72.0 Lymph % (Auto) 13.2 L [place] % (Auto) 12.0 H Eos % (Auto) 1.9 Baso % (Auto) 0.6 Lymph # (Auto) 1.03 [place] # (Auto) 0.9 H Eos # (Auto) 0.2 Baso # (Auto) 0.1 Abs Immat Gran (auto) 0.02 Absolute Neuts (auto) 5.6 Absolute Nucleated RBC 0.000 Nucleated RBC % 0.0 Sodium 135 L Potassium 3.9 Chloride 102 Carbon Dioxide 26 Anion Gap 7 BUN 19 H Creatinine 1.19 H Estim Creat Clear Calc 30 Estimated GFR 43 L Glucose 99 Uric Acid 9.0 H Calcium 9.1 Magnesium 2.0 Total Bilirubin 0.4 AST 20 ALT 14 Alkaline Phosphatase 110 Total Protein 6.2 L Albumin 3.4 L
[2025-05-05] MEDS: allopurinoL 100 MG TABLET PO (14:08)
[2025-05-05] MEDS: DOCUSATE SODIUM 100 MG CAPSULE PO (21:23)
[2025-05-05] MEDS: AZITHROMYCIN 250 MG TABLET 500 MG PO (21:23)
[2025-05-05] MEDS: traZODone HCL 50 MG TABLET 100 MG BY MOUTH (21:23)
[2025-05-05] MEDS: CEFDINIR 300 MG CAPSULE PO (21:23)
[2025-05-05 22:00] VITALS: BP 139/50; PULSE 79; RESP 18; TEMP 36.2; O2SAT 96
[2025-05-06 06:00] VITALS: BP 133/61; PULSE 77; RESP 18; TEMP 36.4; O2SAT 98
[2025-05-06] MEDS: FLUoxetine HCL 20 MG CAPSULE 40 MG PO (08:31)
[2025-05-06] MEDS: ATORVASTATIN 10 MG TABLET BY MOUTH (08:31)
[2025-05-06] MEDS: guaiFENesin 12 HR 600 MG TABCR PO ×2 (08:31→21:58)
[2025-05-06] MEDS: TRIAMTERENE 37.5 MG/HCTZ 25 MG (MAXZIDE) TABLET 1 TAB PO (08:35)
[2025-05-06] MEDS: DOCUSATE SODIUM 100 MG CAPSULE PO ×2 (08:35→21:58)
[2025-05-06] MEDS: ASPIRIN 81 MG ENTERIC TABLET PO (08:36)
[2025-05-06] MEDS: amLODIPine BESYLATE 5 MG TABLET PO (08:36)
[2025-05-06] MEDS: allopurinoL 100 MG TABLET PO (08:36)
[2025-05-06] MEDS: ENOXAPARIN 30 MG/0.3 ML SYRINGE SUB-Q (08:38)
[2025-05-06] MEDS: ACETAMINOPHEN 325 MG TABLET 650 MG PO ×2 (11:05→16:33)
[2025-05-06 14:00] VITALS: BP 110/40; PULSE 78; RESP 16; TEMP 36.4; O2SAT 100
--- NOTE | 2025-05-06 17:34 | PM.IMPN ---
Progress Note: A&P Assessment and Plan (1) Hx of fall: Code(s): Z91.81 - History of falling Status: Acute (2) Hypertension: Qualifiers: Hypertension type: essential hypertension Qualified Code(s): I10 - Essential (primary) hypertension Code(s): I10 - Essential (primary) hypertension Status: Acute (3) Hyperlipidemia: Qualifiers: Hyperlipidemia type: mixed hyperlipidemia Qualified Code(s): E78.2 - Mixed hyperlipidemia Code(s): E78.5 - Hyperlipidemia, unspecified Status: Acute (4) Osteopenia: Code(s): M85.80 - Other specified disorders of bone density and structure, unspecified site Status: Acute (5) Hyponatremia: Code(s): E87.1 - Hypo-osmolality and hyponatremia Status: Acute (6) Stage 3b chronic kidney disease: Code(s): N18.32 - Chronic kidney disease, stage 3b Status: Acute (7) Acute UTI: Code(s): N39.0 - Urinary tract infection, site not specified Status: Acute (8) Pneumonia: Qualifiers: Laterality: bilateral Lung location: lower lobe of lung Pneumonia type: due to unspecified organism Qualified Code(s): J18.9 - Pneumonia, unspecified organism Code(s): J18.9 - Pneumonia, unspecified organism Status: Acute (9) History of multiple strokes: Code(s): Z86.73 - Personal history of transient ischemic attack (TIA), and cerebral infarction without residual deficits Status: Acute Plan This is 80-year-old female who presents to the ED for fever and chills. Patient recently finished an antibiotic for UTI. Developed fever and chills and generally unwell last evening and came to the ED for evaluation. She also reports some cough and an episode of vomiting. She denies any abdominal pain. She does report going to the bathroom more often. Pneumonia CXR showed pneumonia Bibasilar pneumonia CT abdomen showed patchy ground-glass opacities of lung base S/p Rocephin and Azithromycin Now on Cefdinir and Doxycycline Blood culture negative so far E coli UTI Urine culture grew E coli sensitive to Rocephin continue above abx Hyponatremia mild resolved Na 135 Acute Gout Uric acid 9 Foot xray soft tissue swelling overlying the medial aspect of the heads of the first metatarsals where there are erosions with typical location and appearance for gout Started on Allopurinol and on colchicine Hold HCTZ, d/c on discharge monitor CKD stage 3, monitor Hypertension Anxiety depression COntienu home meds and monitor DVT prophylaxis Lovenox Code status full code Subjective Date/time seen: 05/06/25 17:34 Interval history: Comfortable at bedside PT/OT recommends one more night of observation Review of Systems Review of Systems: All systems reviewed & are unremarkable except as noted in HPI and below Exam Narrative: GENERAL: Elderly, well-nourished, and in no acute distress. HEAD: Normocephalic, atraumatic. EYES: EOMI. ENT: Nares clear, no rhinorrhea or epistaxis. Mucous membranes moist. NECK: Supple. No adenopathy or masses CHEST: No respiratory distress. Rales in the bilateral lower lobes. No wheezes or rhonchi HEART: Regular rate and rhythm. No murmur heard. Normal peripheral pulses. ABDOMEN: Soft, nontender, nondistended, normal active bowel sounds. EXTREMITIES: Normal range of motion. No edema. SKIN: Warm, dry, no rash. NEURO: No focal deficits. Alert and oriented x3. PSYCH: Normal mood and affect Objective Data Vital Signs Vital Signs: Vital Signs - 24 hr 05/05/25 20:00 05/05/25 22:00 05/06/25 06:00 Temperature 97.2 F L 97.6 F Pulse Rate 79 77 Respiratory Rate 18 18 Blood Pressure 139/50 L 133/61 Pulse Oximetry 96 98 Oxygen Delivery Room Air 05/06/25 14:00 Temperature 97.6 F Pulse Rate 78 Respiratory Rate 16 Blood Pressure 110/40 L Pulse Oximetry 100 Oxygen Delivery Intake/Output Intake/Output: Intake & Output 05/03/25 05/04/25 05/05/25 05/06/25 23:59 23:59 23:59 23:59 Intake Total 924.2 1644 1537 996 Output Total 1600 1100 1800 900 Balance -675.8 544 -263 96 Meds/Results Medications: Active Medications Generic Name Dose Route Start Last Admin Trade Name Freq PRN Reason Stop Dose Admin Acetaminophen 650 mg 05/02/25 17:51 05/06/25 16:33 Acetaminophen 325 Mg Tablet PO 650 mg Q4H PRN Administration Headache, PAIN, OR FEVER Allopurinol 100 mg 05/05/25 13:55 05/06/25 08:36 Allopurinol 100 Mg Tablet PO 100 mg DAILY@0800 KIMBERLY Administration Amlodipine Besylate 5 mg 05/02/25 14:05 05/06/25 08:36 Amlodipine Besylate 5 Mg Tablet PO 5 mg DAILY KIMBERLY Administration Aspirin 81 mg 05/03/25 09:00 05/06/25 08:36 Aspirin 81 Mg Enteric Tablet PO 81 mg DAILY KIMBERLY Administration Atorvastatin Calcium 10 mg 05/03/25 09:00 05/06/25 08:31 Atorvastatin 10 Mg Tablet BY MOUTH 10 mg DAILY KIMBERLY Administration Cefdinir 300 mg 05/04/25 21:00 05/05/25 21:23 Cefdinir 300 Mg Capsule PO 05/07/25 21:01 300 mg QHS KIMBERLY Administration Docusate Sodium 100 mg 05/05/25 21:00 05/06/25 08:35 Docusate Sodium 100 Mg Capsule PO 100 mg Q12HR KIMBERLY Administration Enoxaparin Sodium 30 mg 05/03/25 09:00 05/06/25 08:38 Enoxaparin 30 Mg/0.3 Ml Syringe SUB-Q 30 mg DAILY KIMBERLY Administration Fluoxetine HCl 40 mg 05/03/25 09:00 05/06/25 08:31 Fluoxetine Hcl 20 Mg Capsule PO 40 mg DAILY KIMBERLY Administration Guaifenesin 600 mg 05/03/25 21:00 05/06/25 08:31 Guaifenesin 12 Hr 600 Mg Tabcr PO 600 mg Q12HR KIMBERLY Administration Ibuprofen 400 mg 05/05/25 13:55 Ibuprofen 400 Mg Tablet PO Q6H PRN Pain Rated 1-3 Trazodone HCl 100 mg 05/02/25 21:00 05/05/25 21:23 Trazodone Hcl 50 Mg Tablet BY MOUTH 100 mg HS KIMBERLY Administration Triamterene/Hydrochlorothiazide 1 tab 05/03/25 09:00 05/06/25 08:35 Triamterene 37.5 Mg/Hctz 25 Mg (Maxzide) Tablet PO 1 tab QAM KIMBERLY Administration Radiology Results: ITS Impressions Abdomen/Pelvis CT 05/02/25 06:34 IMPRESSION: 1. No acute abdominal abnormality. Ankle X-Ray 05/05/25 10:47 IMPRESSION: 1. Prominent soft tissue swelling overlying the medial aspect of the heads of the first metatarsals where there are erosions with typical location and appearance for gout. Potential additional erosion at the medial distal left cuboid. 2. 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 3. Small right-sided and moderate left-sided Achilles calcaneal spurs. Ankle X-Ray 05/05/25 10:47 IMPRESSION: 1. Prominent soft tissue swelling overlying the medial aspect of the heads of the first metatarsals where there are erosions with typical location and appearance for gout. Potential additional erosion at the medial distal left cuboid. 2. 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 3. Small right-sided and moderate left-sided Achilles calcaneal spurs. Foot X-Ray 05/05/25 10:47 IMPRESSION: 1. Prominent soft tissue swelling overlying the medial aspect of the heads of the first metatarsals where there are erosions with typical location and appearance for gout. Potential additional erosion at the medial distal left cuboid. 2. 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 3. Small right-sided and moderate left-sided Achilles calcaneal spurs. Foot X-Ray 05/05/25 10:47 IMPRESSION: 1. Prominent soft tissue swelling overlying the medial aspect of the heads of the first metatarsals where there are erosions with typical location and appearance for gout. Potential additional erosion at the medial distal left cuboid. 2. 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 3. Small right-sided and moderate left-sided Achilles calcaneal spurs. Chest X-Ray 05/05/25 11:12 IMPRESSION: 1. Improving bibasilar atelectasis and/or pneumonia.
[2025-05-06] MEDS: CEFDINIR 300 MG CAPSULE PO (21:58)
[2025-05-06] MEDS: traZODone HCL 50 MG TABLET 100 MG BY MOUTH (21:58)
[2025-05-06] MEDS: COLCHICINE 0.6 MG TABLET PO (21:58)
[2025-05-06] MEDS: IBUPROFEN 400 MG TABLET PO (21:59)
[2025-05-06 22:00] VITALS: BP 132/55; PULSE 56; RESP 18; TEMP 36.4; O2SAT 98
[2025-05-07] MEDS: IBUPROFEN 400 MG TABLET PO (04:27)
[2025-05-07 06:00] VITALS: BP 136/59; PULSE 65; RESP 18; TEMP 36.2; O2SAT 97
[2025-05-07 06:09] LABS: Basophils Absolute Auto 0.1 K/mm3 (0.0-0.1); Eosinophils Absolute Auto 0.2 K/mm3 (0-0.3); Eosinophils Percent Auto 3.8 % (0-4.4); Hematocrit 33.4 % (37.0-47.0); Hemoglobin 10.5 g/dL (12.0-15.0); Immature Granulocyte Absolute 0.03 K/mm3 (0.00-0.031); Immature Granulocyte Percent A 0.5 % (0-0.5); Lymphocytes Absolute Auto 1.37 K/mm3 (0.9-3.2); Lymphocytes Percent Auto 22.3 % (18.3-44.2); Mean Corpuscular HGB Conc 31.4 g/dl (32-36); Mean Corpuscular Hemoglobin 29.9 pg (26-34); Mean Corpuscular Volume 95.2 fl (80-100); Mean Platelet Volume 11.8 fl (7.4-10.4); Monocytes Absolute Auto 0.8 K/mm3 (0.1-0.6); Monocytes Percent Auto 13.5 % (2.6-8.5); Neutrophils Absolute Auto 3.6 K/mm3 (1.3-6.7); Neutrophils Percent Auto 58.9 % (45.5-73.1); Platelet Count Result 244 k/mm3 (150-375); Red Blood Count 3.51 M/mm3 (4.2-5.4); Red Cell Distribution Width 12.7 % (11.5-14.5); White Blood Count 6.1 K/mm3 (4.5-10.0)
[2025-05-07 06:23] LABS: Alanine Aminotransferase 18 U/L (6-35); Albumin Level 3.4 g/dL (3.5-5.1); Alkaline Phosphatase 99 U/L (38-126); Anion Gap 5 mmol/L (4-12); Aspartate Amino Transferase 24 U/L (14-36); Bilirubin,Total 0.3 mg/dL (0.2-1.3); Blood Urea Nitrogen 26 mg/dL (7-17); Calcium 9.1 mg/dL (8.4-10.2); Carbon Dioxide 26 mmol/L (22-30); Chloride 98 mmol/L (98-107); Estimated CRCL calculation 25 ml/min; Estimated Glomerular Filt Rate 36; Glucose 93 mg/dL (65-110); Magnesium 2.1 mg/dL (1.6-2.3); Sodium 129 mmol/L (137-145); Total Protein 6.1 g/dL (6.3-8.2)
[2025-05-07] MEDS: DOCUSATE SODIUM 100 MG CAPSULE PO (09:44)
[2025-05-07] MEDS: allopurinoL 100 MG TABLET PO (09:45)
[2025-05-07] MEDS: amLODIPine BESYLATE 5 MG TABLET PO (09:45)
[2025-05-07] MEDS: COLCHICINE 0.6 MG TABLET PO (09:45)
[2025-05-07] MEDS: predniSONE 20 MG TABLET 40 MG PO (09:45)
[2025-05-07] MEDS: ASPIRIN 81 MG ENTERIC TABLET PO (09:47)
[2025-05-07] MEDS: guaiFENesin 12 HR 600 MG TABCR PO (09:47)
[2025-05-07] MEDS: ATORVASTATIN 10 MG TABLET BY MOUTH (09:47)
[2025-05-07] MEDS: FLUoxetine HCL 20 MG CAPSULE 40 MG PO (09:47)
[2025-05-07] MEDS: TRIAMTERENE 37.5 MG/HCTZ 25 MG (MAXZIDE) TABLET 1 TAB PO (09:47)
[2025-05-07] MEDS: ENOXAPARIN 30 MG/0.3 ML SYRINGE SUB-Q (09:48)
[2025-05-07] MEDS: ACETAMINOPHEN 325 MG TABLET 650 MG PO (09:51)
--- NOTE | 2025-05-07 11:46 | P.DS_ITS ---
DS: Admitting Diagnosis Discharge Date 05/07/25 Admitting Diagnosis Fever chills DS: Discharge Diagnosis Discharge Diagnosis (1) Pneumonia: Qualifiers: Laterality: bilateral Lung location: lower lobe of lung Pneumonia type: due to unspecified organism Qualified Code(s): J18.9 - Pneumonia, unspecified organism Code(s): J18.9 - Pneumonia, unspecified organism Status: Acute (2) Acute UTI: Code(s): N39.0 - Urinary tract infection, site not specified Status: Acute DS: Summary Hospital Course Hospital Course: This is 80-year-old female who presents to the ED for fever and chills. Patient recently finished an antibiotic for UTI. Developed fever and chills and generally unwell last evening and came to the ED for evaluation. She also reports some cough and an episode of vomiting. She denies any abdominal pain. She does report going to the bathroom more often. In ED evaluation she was mildly febrile tachypneic with temperature of 99.8? blood pressure was stable oxygen saturation 90% on room air placed on oxygen via nasal cannula. Laboratory workup revealed WBC of 14.6 hemoglobin 11.3 platelet 193 sodium low at 129. Creatinine of 1.28. Chest x-ray showed possible pneumonia CT abdomen pelvis without acute findings. UA with positive nitrate and leukocyte esterase with 6-10 WBC. Influenza RSV and COVID swab was negative. She was started on Rocephin and Azithromycin, repeat CXR shwoed improving pneumonia, Urine culture showed pansensitive E coli, patient completed Azithromycin and discharged on 3 more days of Cefidnir. Patient had acute gout flare in patient was discharged on 4 more days of Prednisone. Feet xray reviewed. F/u with PCP in 3-5 days Time Spent with Patient Time attestation: Total time spent providing and/or coordinating discharge services: DS: Data Data Completed and Pending Labs on day of discharge: Labs from last 24 hours 05/07/25 05:41 WBC 6.1 RBC 3.51 L Hgb 10.5 L Hct 33.4 L MCV 95.2 MCH 29.9 MCHC 31.4 L RDW 12.7 Plt Count 244 MPV 11.8 H Immature Gran % (Auto) 0.5 Neut % (Auto) 58.9 Lymph % (Auto) 22.3 [place] % (Auto) 13.5 H Eos % (Auto) 3.8 Baso % (Auto) 1.0 Lymph # (Auto) 1.37 [place] # (Auto) 0.8 H Eos # (Auto) 0.2 Baso # (Auto) 0.1 Abs Immat Gran (auto) 0.03 Absolute Neuts (auto) 3.6 Absolute Nucleated RBC 0.000 Nucleated RBC % 0.0 Sodium 129 L Potassium 4.0 Chloride 98 Carbon Dioxide 26 Anion Gap 5 BUN 26 H Creatinine 1.41 H Estim Creat Clear Calc 25 Estimated GFR 36 L Glucose 93 Calcium 9.1 Magnesium 2.1 Total Bilirubin 0.3 AST 24 ALT 18 Alkaline Phosphatase 99 Total Protein 6.1 L Albumin 3.4 L Discharge Plan Discharge Attending physician on discharge: Дмитрий Maldonado Discharging Clinician: Дмитрий Maldonado Anticipated Discharge Date/Time: 05/07/25 11:39 Patient Disposition: NH Half-Way/Asst Living Activity: as tolerated Diet: as tolerated Patient Instructions: Antibiotic Form Patient Language: Azeri Stand Alone Forms: General Discharge Information Follow-up/Referrals: Bill Colin DO [Primary Care Provider] - (F/u with PCP in 3-5 days) Discharge Medications: New cefdinir 300 mg Capsule 300 mg PO QHS 3 Days Qty: 2 0RF triamterene 50 mg capsule 50 mg PO DAILY Qty: 30 1RF allopurinol 100 mg Tablet 100 mg PO DAILY@0800 30 Days Qty: 30 1RF prednisone 20 mg Tablet 40 mg PO DAILY@0800 4 Days Qty: 8 0RF Continued aspirin [Adult Low Dose Aspirin] 81 mg tablet,delayed release (DR/EC) 81 mg PO DAILY Qty: 90 3RF fluoxetine [Prozac] 40 mg capsule 40 mg PO DAILY Qty: 90 3RF amlodipine 5 mg tablet 5 mg PO DAILY Qty: 90 1RF atorvastatin 10 mg tablet See Rx Instructions .ROUTE .COMPLEX Qty: 90 0RF Dose Instruction: TAKE 1 TABLET BY MOUTH EVERY DAY AT BEDTIME Rx Instructions: TAKE 1 TABLET BY MOUTH EVERY DAY AT BEDTIME trazodone 100 mg tablet See Rx Instructions .ROUTE .COMPLEX Qty: 90 1RF Dose Instruction: TAKE 1 TABLET BY MOUTH DAILY Rx Instructions: TAKE 1 TABLET BY MOUTH DAILY acetaminophen 325 mg tablet 325 mg PO Q6H PRN (Reason: pain) Discontinued triamterene-hydrochlorothiazid 37.5-25 mg tablet 1 tablet PO QAM Qty: 90 2RF Date of admission: 05/03/25 09:22 Primary Care Provider: Bill Colin Admitting Provider: Alec Maldonado Attending physician on admission: lAec Maldonado Condition: Stable
== END 2025-05-07 14:05 | DRG 689 ==
LOC: ANHED 05-02 02:53 → ANH3MEDSUR 05-02 02:57
PROVIDERS: Internal Medicine; Admitting Provider General Practice; Emergency Provider Physician Assistant; PCP Internal Medicine; Visit Provider Internal Medicine
DX: N39.0 Urinary tract infection, site not specified (principal); J18.9 Pneumonia, unspecified organism; E87.1 Hypo-osmolality and hyponatremia; I12.9 Hypertensive chronic kidney disease with stage 1 through stage 4 chronic kidney disease, or unspecified chronic kidney disease; N18.32 Chronic kidney disease, stage 3b; B96.20 Unspecified Escherichia coli [E. coli] as the cause of diseases classified elsewhere; K21.9 Gastro-esophageal reflux disease without esophagitis; E78.5 Hyperlipidemia, unspecified; M19.079 Primary osteoarthritis, unspecified ankle and foot; M85.80 Other specified disorders of bone density and structure, unspecified site; F32.A Depression, unspecified; Z20.822 Contact with and (suspected) exposure to COVID-19; Z86.73 Personal history of transient ischemic attack (TIA), and cerebral infarction without residual deficits; Z87.891 Personal history of nicotine dependence; Z79.82 Long term (current) use of aspirin; Z91.81 History of falling
CPT/HCPCS: 36415; 71045; 73600; 73630; 74176; 80053; 81001; 83605; 83735; 84550; 85025; 87040; 87086; 87186; 87637; 96365; 96366; 96368; 97110; 97116; 97162; 97165; 97530; 97535; 99285; A9270; G0378; J0456; J0696; J1650; J7030; J7512

== ENCOUNTER 2025-05-30 21:59 | Emergency (ER) | payer MEDICARE, MEDICAID, SELFPAY ==
--- NOTE | ~2025-05-30 | XR_ITS ---
Portable chest x-ray Comparison: None Clinical History: Fever Findings: There is probable mild bibasilar haziness, left worse than right. No pleural effusion or p neumothorax. Cardiomediastinal silhouette is stable. Bones and soft tissues are unremarkable. Impression: Probable mild bibasilar pulmonary edema. Correlate clinically for pneumonia. Reviewed, dictated and finalized at [facility]. Impression: Probable mild bibasilar pulmonary edema. Correlate clinically for pneumonia.
--- OUTSIDE RECORDS SUMMARY | 2025-05-30 22:01 | XMS_ITS | Encounter Summary ---
Author Organization [facility] Address [address] [place] [address] Care Team Providers Care Home Health Travel Pt Name Role Phone Unavailable Primary Care Provider Unavailabl e Encounter Details Date Type Department Care Team (Late st Contact Info) Description 06/29/2022 Lab Requisition [facility] [address] [place] [address] Payam Blake MD [address] [place] [address] Social History Tobacco Use Types Packs/Day Years Used Date Smoking Tobacco: Never Assessed Comments Unknown Sex and Gender Information Value Date Recorded Sex Assigned at Not on file Legal Sex Female 5:50 AM [employer] Gender Identity Not on file Sexual Orientation Not on file documented as of this encounter Plan of Treatment Not on file documented as of this encounter Procedures Procedure Name Priority Date/Time Associated Diagnosis Comments DERMATOPATHOLOGY Routine 06/28/2022 12:0 0 AM CDT documented in this encounter Results * DERMATOPATHOLOGY (06/28/2022 12:00 AM CDT) Case Report Dermatopathology Report Case: [id number] Authorizing Provider: Payam Blake MD Collected: 06/28/2022 12:00 AM Ordering Location: [facility] Received: 06/29/2022 01:35 PM [...] characteristic determined by the Dermatopathology Laboratory at [facility], directed by Dr. Jean Miller. These tests need not be, and therefore are not, approved by the [place] Food and Drug Administration. The tests are used for clinical purposes. Billing Codes Specimen Charges Stain Charges 94346 1 2 5:55 PM CDT DERMATOPATHOLOGY LABORATORY Embedded Images 2 5:55 PM CDT DERMATOPATHOLOGY LABORATORY Pathology/Cytolog y TISSUE SPECIMEN FROM SKIN / Unknown 06/28/2022 06/29/2022 1:35 PM CDT Payam Blake MD LAB - PATHOLOGY/CYTOLOGY ORD ERABLES Final Result DERMATOPATHOLOGY LABORATORY [facility] - Department of Dermatology [address], [address] [phone] documented in this encounter Visit Diagnoses Not on filedocumented in this encounter
--- OUTSIDE RECORDS SUMMARY | 2025-05-30 22:01 | XMS_ITS | Clinical Summary ---
Author Organization [facility] Address [address] [place] [address] Care Team Providers Care Braille Operator Name Role Phone Unavailable Primary Care Provider Unavailabl e Source Comments [facility],non-owned Affiliates and Associated Physician Practices is amultiple site organization consisting of ambulatory clinics and hospital sitesin [place], [place], [place] and [place]. This disclosure is being madepursuant to the Care Everywhere program and may not contain all information available regarding this patient. Last updated 18.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
--- OUTSIDE RECORDS SUMMARY | 2025-05-30 22:01 | XMS_ITS | Clinical Summary ---
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
--- OUTSIDE RECORDS SUMMARY | 2025-05-30 22:01 | XMS_ITS | Clinical Summary ---
Author Organization [facility] Address [address] [place] [address] Phone Care Team Providers Care Assistant Accounting Manager Name Role Phone Bill Colin DO Primary Care Provider [phone] Allergies Active Allergy Reactions Criticality Noted Date [...] PCV) 04/08/2005 04/08/2004, 10/24/1996 Influenza Vaccine (#1) 2025 10/01/2018 Insurance [facility] Care Teams Assistant Accounting Manager Relationship Specialty Start Date End Date Bill Colin DO [address] [place] [address] PCP - General Internal Medicine 07/22/19
--- OUTSIDE RECORDS SUMMARY | 2025-05-30 22:01 | XMS_ITS | Continuity of Care Document ---
Author Organization [facility] Address [address] [place] [address] Phone Care Team Providers Care Demurrage Man Name Role Phone Gm Markham Unavailable Unavailable [...] Diagnoses Date Provider Providers Copied on Encounter [facility], [address], [place], [place], [address], [place] tel:[phone] [facility] No Information [address] Shahrzad Worrell. [address], [place], [address], [place]. tel:[phone] [facility], [address], [place], [place], [address], [place] tel:[phone] [facility] No Information 0-200 9 Leung OD Brooks. [address] [facility] , [address], [place], [place], [facility], [place]. tel:[phone] Referring Provider: Gm Walsh, [address] [facility] [address], [place], [facility]. tel:[phone] [facility], [address], [place], [place], [address], [place] tel:[phone] [facility] No Information 7-200 9 Shahrzad Worrell. [address] [facility] , [address], [place], [facility], . tel:[phone] [facility], [address], [place], [place], [address], [place] tel:[phone] [facility] No Information 6-200 9 Shahrzad Worrell. [facility] , [address], [place], [facility], [place]. tel:[phone] [facility], [address], [place], [place], [address], [place] tel:[phone] [facility] No Information 6-200 9 Shahrzad Worrell. [address] [facility] , [address], [place], [facility], [place]. tel:[phone] [facility], [address], [place], [place], [address], [place] tel:[phone] [facility] No Information 3-200 9 Shahrz[address] Worrell. [address] [facility] , [address], [place], [facility], [place]. tel:[phone] Referring Provider: Gm Walsh, [address], [place], [address]. tel:[phone] [facility], [address], [place], [place], [address], [place] tel:[phone] [facility] No Information 8 Shahrzad Worrell. [address] [facility] , [address], [place], [facility], [place]. tel:[phone] [facility], [address], [place], [place], [address], [place] tel:[phone] [facility] No Information 7 Shahrzad Worrell. [address] , [address], [place], [facility], [place]. tel:[phone] [facility], [address] [place] [address] [address], [place], [place], [address], [place] tel:[phone] [facility] No Information 7 Shahrzad Worrell. [address] [facility] , [address], [place], [facility], [place]. tel:[phone] [facility], [address], [place], [place], [address], [place] tel:[phone] [facility] No Information 7 Shahrzad Worrell. [address], [place], [facility], [place]. tel:[phone] [facility], [address], [place], [place], [address], [place] tel:[phone] [facility] No Information 7 Shahrzad Worrell. [address] , [address], [place], [facility], [place]. tel:[phone] Office/outpat ient Visit, Est [facility], [address], [place], [place], [address], [place] tel:[phone] [facility] No Information 7[address] Shahrzad Worrell. [facility] , [address], [place], [address], [place]. tel:[phone] Referring Provider: Gm Walsh, [facility]1 [facility] [address], [place], [address]. tel:[phone] Family History Family Member Type Diagnosis Age At Onset No Information Payers Payer name Insurance type Covered republican ID Authoriza tion(s) [place] [id number] Social History Type Description Quantity Date Captured [...]
[2025-05-30 22:08] VITALS: BP 134/55; PULSE 83; RESP 18; TEMP 36.8; O2SAT 97
--- OUTSIDE RECORDS SUMMARY | 2025-05-30 22:21 | XMS_ITS | Clinical Summary ---
Author Organization [facility] Address [address] [facility] [place] [address] Care Team Providers Care Applied Psychology Teacher Name Role Phone Unavailable Primary Care Provider Unavailabl e Source Comments [facility],non-owned Affiliates and Associated Physician Practices is amultiple site organization consisting of ambulatory clinics and hospital sitesin [place], [place], [place] and [place]. This disclosure is being madepursuant to the Care Everywhere program and may not contain all information available regarding this patient. 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
--- OUTSIDE RECORDS SUMMARY | 2025-05-30 22:21 | XMS_ITS | Encounter Summary ---
Author Organization [facility] Address [address] [facility] [place] [address] Care Team Providers Care Learning Disabilities Resource Teacher Name Role Phone Unavailable Primary Care Provider Unavailabl e Encounter Details Date Type Department Care Team (Late st Contact Info) Description 06/29/2022 Lab Requisition [facility] DermPath Lab [address] [place] [address] Payam Blake MD [address] [place] [address] Social History Tobacco Use Types Packs/Day Years Used Date Smoking Tobacco: Never Assessed Comments Unknown Sex and Gender Information Value Date Recorded Sex Assigned at Not on file 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 Gender Identity Not on file Sexual Orientation Not on file documented as of this encounter Plan of Treatment Not on file documented as of this encounter Procedures Procedure Name Priority Date/Time Associated Diagnosis Comments DERMATOPATHOLOGY Routine 06/28/2022 12:0 0 AM CDT documented in this encounter Results * DERMATOPATHOLOGY (06/28/2022 12:00 AM CDT) Case Report Dermatopathology Report Case: [id number] Authorizing Provider: Payam Blake MD Collected: 06/28/2022 12:00 AM Ordering Location: [facility] DermPath Lab Received: 06/29/2022 01:35 PM [...] characteristic determined by the Dermatopathology Laboratory at [facility], directed by Dr. Jean Miller. These tests need not be, and therefore are not, approved by the [place] Food and Drug Administration. The tests are used for clinical purposes. Billing Codes Specimen Charges Stain Charges 76951 1 2 5:55 PM CDT DERMATOPATHOLOGY LABORATORY Embedded Images 2 5:55 PM CDT DERMATOPATHOLOGY LABORATORY Pathology/Cytolog y TISSUE SPECIMEN FROM SKIN / Unknown 06/28/2022 06/29/2022 1:35 PM CDT Payam Blake MD LAB - PATHOLOGY/CYTOLOGY ORD ERABLES Final Result DERMATOPATHOLOGY LABORATORY [facility] - Department of Dermatology [address], [address] [phone] documented in this encounter Visit Diagnoses Not on filedocumented in this encounter
--- OUTSIDE RECORDS SUMMARY | 2025-05-30 22:21 | XMS_ITS | Clinical Summary ---
Author Organization [facility] Address [address] [place] [address] Phone Care Team Providers Care Classroom Monitor Name Role Phone Bill Colin DO Primary Care Provider [phone] Allergies Active Allergy Reactions Criticality Noted Date [...] 10/24/1996 Influenza Vaccine (#1) 2025 10/01/2018 Insurance [facility] Care Teams Classroom Monitor Relationship Specialty Start Date End Date Bill Colin DO [address] [place] [address] PCP - General Internal Medicine 07/22/19
--- OUTSIDE RECORDS SUMMARY | 2025-05-30 22:21 | XMS_ITS | Continuity of Care Document ---
Author Organization [facility] Address [address] [place] [address] Phone Care Team Providers Care Erector Operator Name Role Phone Gm Markham Unavailable Unavailable [...] Diagnoses Date Provider Providers Copied on Encounter [facility], [address], [place], [place], [address], [place] tel:[phone] [facility] No Information 2201 0 Shahrzad Worrell. [address], [place], [address], [place]. tel:[phone] [facility], [address], [place], [place], [address], [place] tel:[phone] [facility] No Information 0-200 9 Leung OD Brooks. [address] [facility] , [address], [place], [facility], [place]. tel:[phone] Referring Provider: Gm Walsh, [address] [facility] [address], [place], [facility]. tel:[phone] [facility], [address], [place], [place], [address], [place] tel:[phone] [facility] No Information 7-200 9 Shahrzad Worrell. [address] [facility] , [address], [place], [facility], . tel:[phone] [facility], [address], [place], [place], [address], [place] tel:[phone] [facility] No Information 6-200 9 Shahrzad Worrell. [facility] , [address], [place], [facility], [place]. tel:[phone] [facility], [address], [place], [place], [address], [place] tel:[phone] [facility] No Information 6-200 9 Shahrzad Worrell. [address] [facility] , [address], [place], [facility], [place]. tel:[phone] [facility], [address], [place], [place], [address], [place] tel:[phone] [facility] No Information 3-200 9 Shahrz[address] Worrell. [address] [facility] , [address], [place], [facility], [place]. tel:[phone] Referring Provider: Gm Walsh, [address], [place], [address]. tel:[phone] [facility], [address], [place], [place], [address], [place] tel:[phone] [facility] No Information 8 Shahrzad Worrell. [address] [facility] , [address], [place], [facility], [place]. tel:[phone] [facility], [address], [place], [place], [address], [place] tel:[phone] [facility] No Information 7 Shahrzad Worrell. [address], [place], [facility], [place]. tel:[phone] [facility], [address] [place] [address] [address], [place], [place], [address], [place] tel:[phone] [facility] No Information 7 Shahr[address] Worrell. [address] [facility] , [address], [place], [facility], [place]. tel:[phone] [facility], [address], [place], [place], [address], [place] tel:[phone] [facility] No Information 7 Shahrzad Worrell. [address], [place], [facility], [place]. tel:[phone] [facility], [address], [place], [place], [address], [place] tel:[phone] [facility] hospital No Information 7 Shahrzad Worrell. [address], [place], [facility], [place]. tel:[phone] Office/outpat ient Visit, Est [facility], [address], [place], [place], [address], [place] tel:[phone] [facility] No Information 7[address] 6 Shahrzad Worrell. [facility] , [address], [place], [address], [place]. tel:[phone] Referring Provider: Gm Walsh, [facility] [address], [place], [address]. tel:[phone] Family History Family Member Type Diagnosis Age At Onset No Information Payers Payer name Insurance type Covered alliance party ID Authoriza tion(s) [place] [id number] Social History Type Description Quantity Date Captured [...]
[2025-05-30 22:30] LABS: Hematocrit 33.2 % (37.0-47.0); Hemoglobin 10.5 g/dL (12.0-15.0); Immature Granulocyte Percent A 0.3 % (0-0.5); Lymphocytes Absolute Auto 1.11 K/mm3 (0.9-3.2); Mean Corpuscular HGB Conc 31.6 g/dl (32-36); Mean Corpuscular Hemoglobin 29.3 pg (26-34); Mean Corpuscular Volume 92.7 fl (80-100); Nucleated Red Blood Cells Absolute Auto 0.000 K/mm3 (0.0-0.012); Nucleated Red Blood Cells Perc 0.0 % (0.0-0.2); Platelet Count Result 184 k/mm3 (150-375); Red Blood Count 3.58 M/mm3 (4.2-5.4); White Blood Count 10.6 K/mm3 (4.5-10.0)
[2025-05-30 22:46] VITALS: TEMP 37.9
[2025-05-30 22:57] LABS: Add Urine Microscopic? YES; Appearance Urine Cloudy (Clear); Glucose Urine UA Negative (Negative); Leukocyte Esterase Ur 3+ LEU/UL (Negative); Nitrate Urine Negative (Negative); Non Pathogenic Casts 0-2; Specific Grav Ur 1.012 (1.001-1.035)
[2025-05-30 22:58] LABS: Alanine Aminotransferase 26 U/L (6-35); Albumin Level 3.5 g/dL (3.5-5.1); Alkaline Phosphatase 128 U/L (38-126); Anion Gap 7 mmol/L (4-12); Aspartate Amino Transferase 24 U/L (14-36); Bilirubin,Total 0.9 mg/dL (0.2-1.3); Blood Urea Nitrogen 23 mg/dL (7-17); Calcium 9.0 mg/dL (8.4-10.2); Carbon Dioxide 22 mmol/L (22-30); Chloride 105 mmol/L (98-107); Estimated CRCL calculation 29 ml/min; Estimated Glomerular Filt Rate 42; Glucose 124 mg/dL (65-110); Magnesium 2.0 mg/dL (1.6-2.3); Potassium 4.3 mmol/L (3.4-5.0); Sodium 134 mmol/L (137-145); Total Protein 6.1 g/dL (6.3-8.2)
--- NOTE | 2025-05-30 22:59 | ED.FEVER ---
HPI - Fever General Chief Complaint: Fever Stated Complaint: Fever, chills Time Seen by Provider: 05/30/25 22:09 History of Present Illness HPI Narrative: Patient is an 80-year-old female who presents the emergency department this evening complaining of generally feeling unwell. States that she went to bed yesterday feeling fine and woke up today with some chills and subjective fevers. Patient was admitted to our facility last month for pneumonia and urinary tract infection and was sent home on an oral antibiotic which she states that she finished last month. Otherwise patient has been doing well, denies any active symptoms including any chest pain or shortness of breath, any nausea vomiting or abdominal pain. No additional symptoms or concerns at this time. Related Data Home Medications ?Medication ?Instructions ?Recorded ?Confirmed ?Last Taken ?Type acetaminophen 325 mg tablet 325 mg PO Q6H PRN pain 11/10/24 05/02/25 Unknown History Allergies Allergy/AdvReac Type Severity Reaction Status Date / Time Sulfa (Sulfonamide Allergy Intermediate Hives Verified 05/30/25 23:10 Antibiotics) Review of Systems Review of Systems: All systems are reviewed and are negative unless stated otherwise in the HPI. 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, degenerative History of multiple strokes Back pain Positive colorectal cancer screening using Cologuard test Insomnia Depression Overdose of antidepressant Hypertension Anemia CKD (chronic kidney disease) Hyperglycemia Surgical History Surgical History H/O: hysterectomy Family History Family History Sibling Pancreatic cancer Father Family history of lung cancer Other Family history of cardiovascular disease Social History Social History Social History: Caffeine-soda Smoking packs per day: 1 Smoking cigarettes per day: 20.0 Years smoked: 2 Smoking pack-years: 2.00 Smoking status: Former smoker Alcohol intake: former Substance use: never Substance use type: does not use Do You Feel Safe in your Home?: Yes Lack of Transportation: No Lack of Food: Never True Current Housing: I Have Housing Concerned About Future Housing: No Difficulty Paying Gas/Electric Bills: No Difficulty Paying for Meds: No Currently Unemployed: No Education: Decline to Answer Difficulty w/ Childcare or Family Care: Decline to Answer Living arrangements: assisted living Gender identity (if verbalized by the patient): Female Spiritual care concerns: No Exam Narrative: General: Alert, awake, febrile, in no acute distress. HEENT: PERRL, no rhinorrhea, no post nasal drip, oropharynx clear. Neck: Trachea midline, no JVD, no lymphadenopathy. Cardiovascular: Regular rate and rhythm, no murmurs, rubs or gallops, no peripheral edema. Respiratory: Clear to auscultation bilaterally, no tachypnea, no wheezing, no rhonchi, no rubs, no respiratory distress. Abdomen: Soft, nontender, nondistended, no rebound, no guarding, no peritoneal signs. Musculoskeletal: No joint swelling or deformity, normal muscle tone. Skin: No rashes or petechia, no signs of infection. Psychiatric: Alert and oriented, normal behavior and judgment for situation. Neurological: Alert and oriented to person, place, and time. Follows all commands. No focal deficits, speech is clear and fluent. Course Vital Signs Vital signs: Vital Signs Temperature 98.3 F 05/30/25 22:08 Pulse Rate 83 05/30/25 22:08 Respiratory Rate 18 05/30/25 22:08 Blood Pressure 134/55 L 05/30/25 22:08 Pulse Oximetry 97 05/30/25 22:08 Oxygen Delivery Room Air 05/30/25 22:08 Temperature 100.2 F H 05/30/25 22:46 Pulse Rate 83 05/30/25 22:08 Respiratory Rate 20 05/30/25 23:21 Blood Pressure 134/55 L 05/30/25 22:08 Pulse Oximetry 94 05/30/25 23:21 Oxygen Delivery Room Air 05/30/25 22:08 MDM - Fever MDM Narrative Medical decision making narrative: The patient was evaluated by myself in the emergency department. History is obtained from patient who is an independent historian and physical exam was performed. External medical records were reviewed at this time. IV was established and pertinent tests were ordered. Patient was administered 1 L IV fluid bolus with normal saline. Laboratory results obtained revealing no acute process. Urinalysis did reveal UTI. Patient was administered 1 g of IV Rocephin at this time. Patient's last urine culture revealed E coli which was susceptible to Rocephin and nitrofurantoin. Imaging studies obtained included CXR which was independently interpreted by me revealing no acute cardiopulmonary process, which is pending final radiology interpretation. Differential diagnosis considerations include sepsis, infectious process such as pneumonia/UTI, dehydration, electrolyte derangements. Comorbidities impacting this visit include history of recurrent UTIs station does wear diapers daily. I have evaluated and discussed social determinants of health with the patient that could potentially impact subsequent diagnosis and treatment plans. On repeat assessment of the patient, reevaluation revealed that the patient is doing well and is in no acute distress. Patient symptoms have improved since she arrived to our emergency department. Repeat vital signs were all reviewed and noted to be stable. Differential diagnosis and treatment plan were discussed with the patient at bedside. Patient agrees with discussion and after shared medical decision making agrees with discharge. All questions were answered to the patient's satisfaction. Patient will follow up with her PCP in 3-5 days. A script for nitrofurantoin was sent to patient's pharmacy to take as prescribed for her UTI. Patient was provided with strict return precautions and instructed to return to the emergency department if any new or worsening symptoms develop. The patient was discharged in stable condition. Lab Data 05/30/25 22:23 05/30/25 22:23 Labs: Lab Results 05/30/25 05/30/25 05/30/25 Range/Units 22:23 22:23 22:23 WBC 10.6 H (4.5-10.0) K/mm3 RBC 3.58 L (4.2-5.4) M/mm3 Hgb 10.5 L (12.0-15.0) g/dL Hct 33.2 L (37.0-47.0) % MCV 92.7 (80-100) fl MCH 29.3 (26-34) pg MCHC 31.6 L (32-36) g/dl RDW 14.0 (11.5-14.5) % Plt Count 184 (150-375) k/mm3 MPV 12.4 H (7.4-10.4) fl Immature Gran % (Auto) 0.3 (0-0.5) % Neut % (Auto) 75.0 H (45.5-73.1) % Lymph % (Auto) 10.5 L (18.3-44.2) % Placer % (Auto) 13.0 H (2.6-8.5) % Eos % (Auto) 0.9 (0-4.4) % Baso % (Auto) 0.3 (0.2-1.2) % Lymph # (Auto) 1.11 (0.9-3.2) K/mm3 Placer # (Auto) 1.4 H (0.1-0.6) K/mm3 Eos # (Auto) 0.1 (0-0.3) K/mm3 Baso # (Auto) 0.0 (0.0-0.1) K/mm3 Abs Immat Gran (auto) 0.03 (0.00-0.031) K/mm3 Absolute Neuts (auto) 7.9 H (1.3-6.7) K/mm3 Absolute Nucleated RBC 0.000 (0.0-0.012) K/mm3 Nucleated RBC % 0.0 (0.0-0.2) % Sodium Cancelled 134 L Potassium Cancelled 4.3 Chloride Cancelled Carbon Dioxide Anion Gap BUN Creatinine Estim Creat Clear Calc Estimated GFR Glucose Lactic Acid (0.7-2.0) mmol/L Calcium Magnesium (1.6-2.3) mg/dL Total Bilirubin AST ALT Alkaline Phosphatase Total Protein Albumin Urine Color (Yellow) Urine Appearance (Clear) Urine pH (5.0-9.0) Ur Specific [place] (1.001-1.035) Urine Protein (Negative) mg/dL Urine Glucose (UA) (Negative) mg/dL Urine Ketones (Negative) mg/dL Ur Blood (Man) (Negative) Urine Nitrate (Negative) Urine Bilirubin (Negative) Urine Urobilinogen (<2.0) mg/dL Leukocyte Esterase Rfl (Negative) AGATHA/UL Urine RBC (0-2) /hpf Urine WBC (0-3) /hpf Ur Squamous Epith Cells (Few) /hpf Urine Bacteria /hpf Urine Casts Influenza A (RT-PCR) (Negative) Influenza B (RT-PCR) (Negative) RSV (RT-PCR) (Negative) SARS-CoV-2 RNA (RT-PCR) (Negative) 05/30/25 05/30/25 05/30/25 Range/Units 22:23 22:23 22:23 WBC (4.5-10.0) K/mm3 RBC (4.2-5.4) M/mm3 Hgb (12.0-15.0) g/dL Hct (37.0-47.0) % MCV (80-100) fl MCH (26-34) pg MCHC (32-36) g/dl RDW (11.5-14.5) % Plt Count (150-375) k/mm3 MPV (7.4-10.4) fl Immature Gran % (Auto) (0-0.5) % Neut % (Auto) (45.5-73.1) % Lymph % (Auto) (18.3-44.2) % Placer % (Auto) (2.6-8.5) % Eos % (Auto) (0-4.4) % Baso % (Auto) (0.2-1.2) % Lymph # (Auto) (0.9-3.2) K/mm3 Placer # (Auto) (0.1-0.6) K/mm3 Eos # (Auto) (0-0.3) K/mm3 Baso # (Auto) (0.0-0.1) K/mm3 Abs Immat Gran (auto) (0.00-0.031) K/mm3 Absolute Neuts (auto) (1.3-6.7) K/mm3 Absolute Nucleated RBC (0.0-0.012) K/mm3 Nucleated RBC % (0.0-0.2) % Sodium Potassium Chloride 105 Carbon Dioxide Cancelled 22 Anion Gap Cancelled 7 BUN Cancelled Creatinine Estim Creat Clear Calc Estimated GFR Glucose Lactic Acid (0.7-2.0) mmol/L Calcium Magnesium (1.6-2.3) mg/dL Total Bilirubin AST ALT Alkaline Phosphatase Total Protein Albumin Urine Color (Yellow) Urine Appearance (Clear) Urine pH (5.0-9.0) Ur Specific [place] (1.001-1.035) Urine Protein (Negative) mg/dL Urine Glucose (UA) (Negative) mg/dL Urine Ketones (Negative) mg/dL Ur Blood (Man) (Negative) Urine Nitrate (Negative) Urine Bilirubin (Negative) Urine Urobilinogen (<2.0) mg/dL Leukocyte Esterase Rfl (Negative) AGATHA/UL Urine RBC (0-2) /hpf Urine WBC (0-3) /hpf Ur Squamous Epith Cells (Few) /hpf Urine Bacteria /hpf Urine Casts Influenza A (RT-PCR) (Negative) Influenza B (RT-PCR) (Negative) RSV (RT-PCR) (Negative) SARS-CoV-2 RNA (RT-PCR) (Negative) 05/30/25 05/30/25 05/30/25 Range/Units 22:23 22:23 22:23 WBC (4.5-10.0) K/mm3 RBC (4.2-5.4) M/mm3 Hgb (12.0-15.0) g/dL Hct (37.0-47.0) % MCV (80-100) fl MCH (26-34) pg MCHC (32-36) g/dl RDW (11.5-14.5) % Plt Count (150-375) k/mm3 MPV (7.4-10.4) fl Immature Gran % (Auto) (0-0.5) % Neut % (Auto) (45.5-73.1) % Lymph % (Auto) (18.3-44.2) % Placer % (Auto) (2.6-8.5) % Eos % (Auto) (0-4.4) % Baso % (Auto) (0.2-1.2) % Lymph # (Auto) (0.9-3.2) K/mm3 Placer # (Auto) (0.1-0.6) K/mm3 Eos # (Auto) (0-0.3) K/mm3 Baso # (Auto) (0.0-0.1) K/mm3 Abs Immat Gran (auto) (0.00-0.031) K/mm3 Absolute Neuts (auto) (1.3-6.7) K/mm3 Absolute Nucleated RBC (0.0-0.012) K/mm3 Nucleated RBC % (0.0-0.2) % Sodium Potassium Chloride Carbon Dioxide Anion Gap BUN 23 H Creatinine Cancelled 1.23 H Estim Creat Clear Calc Cancelled 29 Estimated GFR Cancelled Glucose Lactic Acid (0.7-2.0) mmol/L Calcium Magnesium (1.6-2.3) mg/dL Total Bilirubin AST ALT Alkaline Phosphatase Total Protein Albumin Urine Color (Yellow) Urine Appearance (Clear) Urine pH (5.0-9.0) Ur Specific [place] (1.001-1.035) Urine Protein (Negative) mg/dL Urine Glucose (UA) (Negative) mg/dL Urine Ketones (Negative) mg/dL Ur Blood (Man) (Negative) Urine Nitrate (Negative) Urine Bilirubin (Negative) Urine Urobilinogen (<2.0) mg/dL Leukocyte Esterase Rfl (Negative) AGATHA/UL Urine RBC (0-2) /hpf Urine WBC (0-3) /hpf Ur Squamous Epith Cells (Few) /hpf Urine Bacteria /hpf Urine Casts Influenza A (RT-PCR) (Negative) Influenza B (RT-PCR) (Negative) RSV (RT-PCR) (Negative) SARS-CoV-2 RNA (RT-PCR) (Negative) 05/30/25 05/30/25 05/30/25 Range/Units 22:23 22:23 22:23 WBC (4.5-10.0) K/mm3 RBC (4.2-5.4) M/mm3 Hgb (12.0-15.0) g/dL Hct (37.0-47.0) % MCV (80-100) fl MCH (26-34) pg MCHC (32-36) g/dl RDW (11.5-14.5) % Plt Count (150-375) k/mm3 MPV (7.4-10.4) fl Immature Gran % (Auto) (0-0.5) % Neut % (Auto) (45.5-73.1) % Lymph % (Auto) (18.3-44.2) % Placer % (Auto) (2.6-8.5) % Eos % (Auto) (0-4.4) % Baso % (Auto) (0.2-1.2) % Lymph # (Auto) (0.9-3.2) K/mm3 Placer # (Auto) (0.1-0.6) K/mm3 Eos # (Auto) (0-0.3) K/mm3 Baso # (Auto) (0.0-0.1) K/mm3 Abs Immat Gran (auto) (0.00-0.031) K/mm3 Absolute Neuts (auto) (1.3-6.7) K/mm3 Absolute Nucleated RBC (0.0-0.012) K/mm3 Nucleated RBC % (0.0-0.2) % Sodium Potassium Chloride Carbon Dioxide Anion Gap BUN Creatinine Estim Creat Clear Calc Estimated GFR 42 L Glucose Cancelled 124 H Lactic Acid (0.7-2.0) mmol/L Calcium Cancelled 9.0 Magnesium 2.0 (1.6-2.3) mg/dL Total Bilirubin Cancelled AST ALT Alkaline Phosphatase Total Protein Albumin Urine Color (Yellow) Urine Appearance (Clear) Urine pH (5.0-9.0) Ur Specific [place] (1.001-1.035) Urine Protein (Negative) mg/dL Urine Glucose (UA) (Negative) mg/dL Urine Ketones (Negative) mg/dL Ur Blood (Man) (Negative) Urine Nitrate (Negative) Urine Bilirubin (Negative) Urine Urobilinogen (<2.0) mg/dL Leukocyte Esterase Rfl (Negative) AGATHA/UL Urine RBC (0-2) /hpf Urine WBC (0-3) /hpf Ur Squamous Epith Cells (Few) /hpf Urine Bacteria /hpf Urine Casts Influenza A (RT-PCR) (Negative) Influenza B (RT-PCR) (Negative) RSV (RT-PCR) (Negative) SARS-CoV-2 RNA (RT-PCR) (Negative) 05/30/25 05/30/25 05/30/25 Range/Units 22:23 22:23 22:23 WBC (4.5-10.0) K/mm3 RBC (4.2-5.4) M/mm3 Hgb (12.0-15.0) g/dL Hct (37.0-47.0) % MCV (80-100) fl MCH (26-34) pg MCHC (32-36) g/dl RDW (11.5-14.5) % Plt Count (150-375) k/mm3 MPV (7.4-10.4) fl Immature Gran % (Auto) (0-0.5) % Neut % (Auto) (45.5-73.1) % Lymph % (Auto) (18.3-44.2) % Placer % (Auto) (2.6-8.5) % Eos % (Auto) (0-4.4) % Baso % (Auto) (0.2-1.2) % Lymph # (Auto) (0.9-3.2) K/mm3 Placer # (Auto) (0.1-0.6) K/mm3 Eos # (Auto) (0-0.3) K/mm3 Baso # (Auto) (0.0-0.1) K/mm3 Abs Immat Gran (auto) (0.00-0.031) K/mm3 Absolute Neuts (auto) (1.3-6.7) K/mm3 Absolute Nucleated RBC (0.0-0.012) K/mm3 Nucleated RBC % (0.0-0.2) % Sodium Potassium Chloride Carbon Dioxide Anion Gap BUN Creatinine Estim Creat Clear Calc Estimated GFR Glucose Lactic Acid (0.7-2.0) mmol/L Calcium Magnesium (1.6-2.3) mg/dL Total Bilirubin 0.9 AST Cancelled 24 ALT Cancelled 26 Alkaline Phosphatase Cancelled Total Protein Albumin Urine Color (Yellow) Urine Appearance (Clear) Urine pH (5.0-9.0) Ur Specific [place] (1.001-1.035) Urine Protein (Negative) mg/dL Urine Glucose (UA) (Negative) mg/dL Urine Ketones (Negative) mg/dL Ur Blood (Man) (Negative) Urine Nitrate (Negative) Urine Bilirubin (Negative) Urine Urobilinogen (<2.0) mg/dL Leukocyte Esterase Rfl (Negative) AGATHA/UL Urine RBC (0-2) /hpf Urine WBC (0-3) /hpf Ur Squamous Epith Cells (Few) /hpf Urine Bacteria /hpf Urine Casts Influenza A (RT-PCR) (Negative) Influenza B (RT-PCR) (Negative) RSV (RT-PCR) (Negative) SARS-CoV-2 RNA (RT-PCR) (Negative) 05/30/25 05/30/25 05/30/25 Range/Units 22:23 22:23 22:23 WBC (4.5-10.0) K/mm3 RBC (4.2-5.4) M/mm3 Hgb (12.0-15.0) g/dL Hct (37.0-47.0) % MCV (80-100) fl MCH (26-34) pg MCHC (32-36) g/dl RDW (11.5-14.5) % Plt Count (150-375) k/mm3 MPV (7.4-10.4) fl Immature Gran % (Auto) (0-0.5) % Neut % (Auto) (45.5-73.1) % Lymph % (Auto) (18.3-44.2) % Placer % (Auto) (2.6-8.5) % Eos % (Auto) (0-4.4) % Baso % (Auto) (0.2-1.2) % Lymph # (Auto) (0.9-3.2) K/mm3 Placer # (Auto) (0.1-0.6) K/mm3 Eos # (Auto) (0-0.3) K/mm3 Baso # (Auto) (0.0-0.1) K/mm3 Abs Immat Gran (auto) (0.00-0.031) K/mm3 Absolute Neuts (auto) (1.3-6.7) K/mm3 Absolute Nucleated RBC (0.0-0.012) K/mm3 Nucleated RBC % (0.0-0.2) % Sodium Potassium Chloride Carbon Dioxide Anion Gap BUN Creatinine Estim Creat Clear Calc Estimated GFR Glucose Lactic Acid (0.7-2.0) mmol/L Calcium Magnesium (1.6-2.3) mg/dL Total Bilirubin AST ALT Alkaline Phosphatase 128 H Total Protein Cancelled 6.1 L Albumin Cancelled 3.5 Urine Color (Yellow) Urine Appearance (Clear) Urine pH (5.0-9.0) Ur Specific [place] (1.001-1.035) Urine Protein (Negative) mg/dL Urine Glucose (UA) (Negative) mg/dL Urine Ketones (Negative) mg/dL Ur Blood (Man) (Negative) Urine Nitrate (Negative) Urine Bilirubin (Negative) Urine Urobilinogen (<2.0) mg/dL Leukocyte Esterase Rfl (Negative) AGATHA/UL Urine RBC (0-2) /hpf Urine WBC (0-3) /hpf Ur Squamous Epith Cells (Few) /hpf Urine Bacteria /hpf Urine Casts Influenza A (RT-PCR) Negative (Negative) Influenza B (RT-PCR) Negative (Negative) RSV (RT-PCR) Negative (Negative) SARS-CoV-2 RNA (RT-PCR) Negative (Negative) 05/30/25 05/30/25 Range/Units 22:49 23:24 WBC (4.5-10.0) K/mm3 RBC (4.2-5.4) M/mm3 Hgb (12.0-15.0) g/dL Hct (37.0-47.0) % MCV (80-100) fl MCH (26-34) pg MCHC (32-36) g/dl RDW (11.5-14.5) % Plt Count (150-375) k/mm3 MPV (7.4-10.4) fl Immature Gran % (Auto) (0-0.5) % Neut % (Auto) (45.5-73.1) % Lymph % (Auto) (18.3-44.2) % Placer % (Auto) (2.6-8.5) % Eos % (Auto) (0-4.4) % Baso % (Auto) (0.2-1.2) % Lymph # (Auto) (0.9-3.2) K/mm3 Placer # (Auto) (0.1-0.6) K/mm3 Eos # (Auto) (0-0.3) K/mm3 Baso # (Auto) (0.0-0.1) K/mm3 Abs Immat Gran (auto) (0.00-0.031) K/mm3 Absolute Neuts (auto) (1.3-6.7) K/mm3 Absolute Nucleated RBC (0.0-0.012) K/mm3 Nucleated RBC % (0.0-0.2) % Sodium Potassium Chloride Carbon Dioxide Anion Gap BUN Creatinine Estim Creat Clear Calc Estimated GFR Glucose Lactic Acid 0.7 (0.7-2.0) mmol/L Calcium Magnesium (1.6-2.3) mg/dL Total Bilirubin AST ALT Alkaline Phosphatase Total Protein Albumin Urine Color Yellow (Yellow) Urine Appearance Cloudy H (Clear) Urine pH 6.0 (5.0-9.0) Ur Specific [place] 1.012 (1.001-1.035) Urine Protein Trace (Negative) mg/dL Urine Glucose (UA) Negative (Negative) mg/dL Urine Ketones Negative (Negative) mg/dL Ur Blood (Man) Negative (Negative) Urine Nitrate Negative (Negative) Urine Bilirubin Negative (Negative) Urine Urobilinogen 1.0 (<2.0) mg/dL Leukocyte Esterase Rfl 3+ H (Negative) AGATHA/UL Urine RBC 0-2 (0-2) /hpf Urine WBC >100 H (0-3) /hpf Ur Squamous Epith Cells None seen (Few) /hpf Urine Bacteria 4+ /hpf Urine Casts 0-2 Influenza A (RT-PCR) (Negative) Influenza B (RT-PCR) (Negative) RSV (RT-PCR) (Negative) SARS-CoV-2 RNA (RT-PCR) (Negative) Discharge Plan Discharge Clinical Impression: Urinary tract infection Patient Disposition: Home Condition: Improved Instructions: Antibiotic Form, Urinary Tract Infection in Women (ED) Additional Instructions: Please follow-up with your family doctor within the next 3-5 days. Return to emergency department if any new or worsening symptoms develop. Take the prescribed antibiotic as instructed for UTI. Patient Language: Pakistani Prescriptions: New nitrofurantoin monohyd/m-cryst [Macrobid] 100 mg capsule 100 mg PO Q12H 5 Days Qty: 10 0RF Rx Instructions: must administer with a meal/food No Action aspirin [Adult Low Dose Aspirin] 81 mg tablet,delayed release (DR/EC) 81 mg PO DAILY Qty: 90 3RF prednisone 20 mg tablet 40 mg PO DAILY@0800 4 Days Qty: 8 0RF allopurinol 100 mg Tablet 100 mg PO DAILY@0800 30 Days Qty: 30 1RF triamterene 50 mg capsule 50 mg PO DAILY Qty: 30 1RF fluoxetine [Prozac] 40 mg capsule 40 mg PO DAILY Qty: 90 3RF amlodipine 5 mg tablet 5 mg PO DAILY Qty: 90 1RF atorvastatin 10 mg tablet See Rx Instructions .ROUTE .COMPLEX Qty: 90 0RF Dose Instruction: TAKE 1 TABLET BY MOUTH EVERY DAY AT BEDTIME Rx Instructions: TAKE 1 TABLET BY MOUTH EVERY DAY AT BEDTIME trazodone 100 mg tablet See Rx Instructions .ROUTE .COMPLEX Qty: 90 1RF Dose Instruction: TAKE 1 TABLET BY MOUTH DAILY Rx Instructions: TAKE 1 TABLET BY MOUTH DAILY acetaminophen 325 mg tablet 325 mg PO Q6H PRN (Reason: pain) Follow-up/Referrals: Bill Colin, [Primary Care Provider] - 3 Days Time of Disposition: 00:10
[2025-05-30 23:10] LABS: Influenza A QL RT-PCR Negative (Negative); Influenza B QL RT-PCR Negative (Negative); RSV RNA, RT-PCR Negative (Negative); SARS-CoV-2 RNA PCR Negative (Negative)
[2025-05-30] MEDS: SODIUM CHLORIDE 0.9% IV 1,000 ML 999 ML IV CONT (23:18)
[2025-05-30 23:21] VITALS: RESP 20; O2SAT 94
[2025-05-31] MEDS: IBUPROFEN 400 MG TABLET PO (00:28)
[2025-05-31] MEDS: cefTRIAXone 1 GM in SODIUM CHLORIDE 0.9% IV 50 ML 100 ML IVPB (00:30)
[2025-05-31 01:20] VITALS: BP 122/51; PULSE 74; RESP 14; O2SAT 96
== END 2025-05-31 01:21 | disposition home or self-care (01) ==
PROVIDERS: Emergency Provider Emergency Medicine; PCP Internal Medicine
DX: N39.0 Urinary tract infection, site not specified (principal); Z20.822 Contact with and (suspected) exposure to COVID-19; I12.9 Hypertensive chronic kidney disease with stage 1 through stage 4 chronic kidney disease, or unspecified chronic kidney disease; N18.9 Chronic kidney disease, unspecified; M19.079 Primary osteoarthritis, unspecified ankle and foot; F41.9 Anxiety disorder, unspecified; F32.A Depression, unspecified; Z86.73 Personal history of transient ischemic attack (TIA), and cerebral infarction without residual deficits; Z87.891 Personal history of nicotine dependence; Z87.01 Personal history of pneumonia (recurrent); Z90.710 Acquired absence of both cervix and uterus; Z79.82 Long term (current) use of aspirin; Z79.899 Other long term (current) drug therapy
CPT/HCPCS: 36415; 71045; 80053; 81001; 83605; 83735; 85025; 87086; 87637; 96361; 96365; 99284; A9270; J0696; J7030

== ENCOUNTER 2025-07-18 09:05 | Outpatient (CLI) | payer MEDICARE, OTHER, SELFPAY ==
--- OUTSIDE RECORDS SUMMARY | 2010-06-09 06:00 | XMS_ITS | Continuity of Care Document ---
Author Organization [facility] Address [address] [place] [address] Phone Care Team Providers Care Mergers And Acquisitions Attorney Name Role Phone Gm Markham Unavailable Unavailable Procedures Procedure Date Eye Exam & Treatment Refraction Post-op Follow-up Visit Refraction Post-op Follow-up Visit Remove Cataract, Insert Lens PreOp Assessment Performed Cataract Kit SEC MV Tax - Medical Eye Exam & Treatment Script Printed/Phoned Pt Requ Or Pharm N ot Availab [facility]Professional Eye Exam & Treatment Refraction Eye Exam Established Pt Post-op Follow-up Visit Refraction Post-op Follow-up Visit Remove Cataract, Insert Lens Office/outpatient Visit, Est [facility] Advance Directives Directive Yes / No Effective Date File Name No Information Encounters Encounter Description Practice Location Reason(s) For Visit Diagnoses Date Provider Providers Copied on Encounter [facility], [address], [place], [place], [address], [place] tel:[phone] SEC [facility] No Information 2201 0 Shahrzad Worrell. [address], [place], [address], [place]. tel:[phone] [facility], [address], [place], [place], [address], [place] tel:[phone] [facility] No Information 0-200 9 Leung OD Brooks. [address] [facility] , [address], [place], [place], [facility], [place]. tel:[phone] Referring Provider: Gm Walsh, [address] [facility] [address], [place], [facility]. tel:[phone] [facility], [address], [place], [place], [address], [place] tel:[phone] [facility] No Information 7-200 9 Shahrzad Worrell. [address] [facility] [address] , [address], [place], [facility], . tel:[phone] [facility], [address], [place], [place], [address], [place] tel:[phone] [facility] No Information 6-200 9 Shahrzad Worrell. [facility] , [address], [place], [facility], [place]. tel:[phone] [facility], [address], [place], [place], [address], [place] tel:[phone] [facility] No Information 6-200 9 Shahrzad Worrell. [address] [facility] [address] , [address], [place], [facility], [place]. tel:[phone] [facility], [address], [place], [place], [address], [place] tel:[phone] [facility] No Information 3-200 9 Shahrzad Worrell. [address] [facility] [address] , [address], [place], [facility], [place]. tel:[phone] Referring Provider: Gm Walsh, [address], [place], [address]. tel:[phone] [facility], [address], [place], [place], [address], [place] tel:[phone] [facility] No Information 8 Shahrzad Worrell. [address] [facility] [address] , [address], [place], [facility], [place]. tel:[phone] [facility], [address], [place], [place], [address], [place] tel:[phone] SEC [facility] No Information 7 Shahrzad Worrell. [address] , [address], [place], [facility], [place]. tel:[phone] [facility], [address] [place] [address] [address], [place], [place], [address], [place] tel:[phone] [facility] No Information 7 Shahrzad Worrell. [address] [facility] , [address], [place], [facility], [place]. tel:[phone] [facility], [address], [place], [place], [address], [place] tel:[phone] SEC [facility] No Information 7 Shahrzad Worrell. [address] , [address], [place], [facility], [place]. tel:[phone] [facility], [address], [place], [place], [address], [place] tel:[phone] [facility] No Information 7 Shahrzad Worrell. [address] , [address], [place], [facility], [place]. tel:[phone] Office/outpat ient Visit, Est [facility], [address], [place], [place], [address], [place] tel:[phone] [facility] No Information 7200 6 Shahrzad Worrell. [facility] , [address], [place], [address], [place]. tel:[phone] Referring Provider: Gm Walsh, [facility] [address], [place], [address]. tel:[phone] Family History Family Member Type Diagnosis Age At Onset No Information Payers Payer name Insurance type Covered democrat ID Authoriza tion(s) [place] [id number] Social History Type Description Quantity Date Captured Comments Sex Female Smoking Status No Information Chief Complaint And Reason For Visit No Information Reason For Referral Reason For Referral No Information History Of Present Illness Encounter Date Complaint History Of Prese nt Illness No Information Functional Status Date Functional Assessmen t No Information Instructions Date Instruction Additional Infor mation No Information Assessments Type Assessment Date No Information Patient Care Teams Name Effective Dates (start - stop) Status Members No Information
--- OUTSIDE RECORDS SUMMARY | 2025-07-18 09:08 | XMS_ITS | Clinical Summary ---
Author Organization [facility] Address [address] [place] [address] Care Team Providers Care Corrections Caseworker Name Role Phone Unavailable Primary Care Provider Unavailabl e Source Comments [facility],non-owned Affiliates and Associated Physician Practices is amultiple site organization consisting of ambulatory clinics and hospital sitesin [place], [place], [place] and [place]. This disclosure is being madepursuant to the Care Everywhere program and may not contain all information available regarding this patient. 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
--- OUTSIDE RECORDS SUMMARY | 2025-07-18 09:08 | XMS_ITS | Encounter Summary ---
Author Organization [facility] Address [address] [place] [address] Care Team Providers Care Fire Alarm Operator Name Role Phone Unavailable Primary Care Provider Unavailabl e Encounter Details Date Type Department Care Team (Late st Contact Info) Description 06/29/2022 Lab Requisition [facility] [address] [place] [address] Payam Blake MD [address] [place] [address] Social History Tobacco Use Types Packs/Day Years Used Date Smoking Tobacco: Never Assessed Comments Unknown Sex and Gender Information Value Date Recorded Sex Assigned at Not on file 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 Gender Identity Not on file Sexual Orientation Not on file documented as of this encounter Plan of Treatment Not on file documented as of this encounter Procedures Procedure Name Priority Date/Time Associated Diagnosis Comments DERMATOPATHOLOGY Routine 06/28/2022 12:0 0 AM CDT documented in this encounter Results * DERMATOPATHOLOGY (06/28/2022 12:00 AM CDT) Case Report Dermatopathology Report Case: [id number] Authorizing Provider: Payam Blake MD Collected: 06/28/2022 12:00 AM Ordering Location: [facility] Received: 06/29/2022 [...] characteristic determined by the Dermatopathology Laboratory at [facility], directed by Dr. Jean Miller. These tests need not be, and therefore are not, approved by the [place] Food and Drug Administration. The tests are used for clinical purposes. Billing Codes Specimen Charges Stain Charges 34110 1 2 5:55 PM CDT DERMATOPATHOLOGY LABORATORY Embedded Images 2 5:55 PM CDT DERMATOPATHOLOGY LABORATORY Pathology/Cytolog y TISSUE SPECIMEN FROM SKIN / Unknown 06/28/2022 06/29/2022 1:35 PM CDT Payam Blake MD LAB - PATHOLOGY/CYTOLOGY ORD ERABLES Final Result DERMATOPATHOLOGY LABORATORY [facility] - Department of Dermatology [address], [address] [phone] documented in this encounter Visit Diagnoses Not on filedocumented in this encounter
--- OUTSIDE RECORDS SUMMARY | 2025-07-18 09:08 | XMS_ITS | Clinical Summary ---
Author Organization [facility] Address [address] [place] [phone] Phone Care Team Providers Care Eye Specialist Name Role Phone Bill Colin DO Primary Care Provider [phone] Allergies Active Allergy Reactions Criticality Noted Date [...] 10/24/1996 Influenza Vaccine (#1) 2025 10/01/2018 Insurance [facility] Care Teams Eye Specialist Relationship Specialty Start Date End Date Bill Colin DO [address] [place] [id number] PCP - General Internal Medicine 07/22/19
[2025-07-18 09:54] LABS: Total Protein Urine Random 14 mg/dL; Ur Ttl Prot Creatinine Ratio 0.27 mg/mg (0-0.20)
[2025-07-18 10:11] LABS: Albumin Level 3.8 g/dL (3.5-5.1); Anion Gap 8 mmol/L (4-12); Blood Urea Nitrogen 23 mg/dL (7-17); Calcium 9.6 mg/dL (8.4-10.2); Carbon Dioxide 24 mmol/L (22-30); Chloride 106 mmol/L (98-107); Estimated Glomerular Filt Rate 37; Glucose 108 mg/dL (65-110); Potassium 3.9 mmol/L (3.4-5.0); Sodium 138 mmol/L (137-145)
== END 2025-07-18 09:06 | disposition home or self-care (01) ==
PROVIDERS: PCP Internal Medicine; Visit Provider Internal Medicine Nephrology
DX: I12.9 Hypertensive chronic kidney disease with stage 1 through stage 4 chronic kidney disease, or unspecified chronic kidney disease (principal); N18.32 Chronic kidney disease, stage 3b
CPT/HCPCS: 36415; 80069; 82570; 84156

== ENCOUNTER 2025-09-14 13:13 | Outpatient (CLI) | payer MEDICARE, MEDICAID, SELFPAY ==
--- OUTSIDE RECORDS SUMMARY | 2010-06-09 06:00 | XMS_ITS | Continuity of Care Document ---
Author Organization [facility] Address [address] [place] [address] Phone Care Team Providers Care Surety Bond Agent Name Role Phone Gm Markham Unavailable Unavailable [...] Diagnoses Date Provider Providers Copied on Encounter [facility], [address], [place], [place], [address], [place] tel:[phone] SEC [facility] No Information 2201 0 Shahrzad Worrell. [address] , [address], [place], [address], [place]. tel:[phone] [facility], [address], [place], [place], [address], [place] tel:[phone] [facility] No Information 0-200 9 Leung OD Brooks. [address] [facility] , [address], [place], [facility], [place]. tel:[phone] Referring Provider: Gm Walsh, [address] [facility] [address], [place], [facility]. tel:[phone] [facility], [address], [place], [place], [address], [place] tel:[phone] [facility] No Information 7-200 9 Shahrzad Worrell. [address] [facility] , [address], [place], [facility], . tel:[phone] [facility], [address], [place], [place], [address], [place] tel:[phone] [facility] No Information 6-200 9 Shahrzad Worrell. [facility] , [address], [place], [facility], [place]. tel:[phone] [facility], [address], [place], [place], [address], [place] tel:[phone] [facility] No Information 6-200 9 Shahrzad Worrell. [address] [facility] , [address], [place], [facility], [place]. tel:[phone] [facility], [address], [place], [place], [address], [place] tel:[phone] [facility] No Information 3-200 9 Shahrzad Worrell. [address] [facility] , [address], [place], [facility], [place]. tel:[phone] Referring Provider: Gm Walsh, [address], [place], [address]. tel:[phone] [facility], [address], [place], [place], [address], [place] tel:[phone] [facility] No Information 8 Shahrzad Worrell. [address] [facility] , [address], [place], [facility], [place]. tel:[phone] [facility], [address], [place], [place], [address], [place] tel:[phone] [facility] No Information 7 Shahrzad Worrell. [address], [place], [facility], [place]. tel:[phone] [facility], [address] [place] [address] [address], [place], [place], [address], [place] tel:[phone] [facility] No Information 7 Shahrzad Worrell. [address] [facility] , [address], [place], [facility], [place]. tel:[phone] [facility], [address], [place], [place], [address], [place] tel:[phone] [facility] No Information 7 Shahrzad Worrell. [address] , [address], [place], [facility], [place]. tel:[phone] [facility], [address], [place], [place], [address], [place] tel:[phone] [facility] No Information 7 Shahrzad Worrell. [address] , [address], [place], [facility], [place]. tel:[phone] Office/outpat ient Visit, Est [facility], [address], [place], [place], [address], [place] tel:[phone] [facility] No Information 7200 6 Shahrzad Worrell. [facility] , [address], [place], [address], [place]. tel:[phone] Referring Provider: Gm Walsh, [facility] [address], [place], [address]. tel:[phone] Family History Family Member Type Diagnosis Age At Onset No Information Payers Payer name Insurance type Covered constitution party ID Authoriza tion(s) [place] [id number] Social History Type Description Quantity Date Captured [...]
--- OUTSIDE RECORDS SUMMARY | 2025-09-14 14:47 | XMS_ITS | Clinical Summary ---
Author Organization [facility] Address [address] [place] [address] Care Team Providers Care Cashier Host/Hostess Name Role Phone Unavailable Primary Care Provider Unavailabl e Source Comments [facility],non-owned Affiliates and Associated Physician Practices is amultiple site organization consisting of [place] and [place]in [place] and [place]. This disclosure is being madepursuant to the Care Everywhere program and may not contain all information available regarding this patient. 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 Gender Identity Not on file Sexual Orientation Not on file Plan of Treatment Health Maintenance Due Date Last Done Comments BONE DENSITY TESTING 1943 DTAP/TDAP/TD VACCINES (1 - Tdap) 1962 PNEUMOCOCCAL VACCINE 50+ (1 of 1 - PCV) 1993 ZOSTER VACCINE (1 of 2) 1993 Respiratory Syncytial Virus (RSV) Vaccine Pt: or over 60 yrs (1 - 1-dose 75+ series) 2018 DEPRESSION SCREENING 11/19/2024 MEDICARE AWV CALENDAR YEAR 2024 COVID-19 VACCINE (1 - 2023-2 5 season) 2025 INFLUENZA VACCINE (#1) 2025 HEPATITIS B VACCINE [...] patient's age to complete this topic Insurance [facility] MANAGED MEDICARE ADV [employer] MANAGED MEDICARE ADV
--- OUTSIDE RECORDS SUMMARY | 2025-09-14 14:47 | XMS_ITS | Encounter Summary ---
Author Organization [facility] Address [address] [place] [address] Care Team Providers Care Flexo Press Operator Name Role Phone Unavailable Primary Care Provider Unavailabl e Encounter Details Date Type Department Care Team (Late st Contact Info) Description 06/29/2022 Lab Requisition [facility] [address] [place] [address] Payam Blake MD [address] [place] [address] Social History Tobacco Use Types Packs/Day Years Used Date Smoking Tobacco: Never Assessed Comments Unknown Sex and Gender Information Value Date Recorded Sex Assigned at Not on file 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 Gender Identity Not on file Sexual Orientation Not on file documented as of this encounter Plan of Treatment Not on file documented as of this encounter Procedures Procedure Name Priority Date/Time Associated Diagnosis Comments DERMATOPATHOLOGY Routine 06/28/2022 12:0 0 AM CDT documented in this encounter Results * DERMATOPATHOLOGY (06/28/2022 12:00 AM CDT) Case Report Dermatopathology Report Case: [id number] Authorizing Provider: Payam Blake MD Collected: 06/28/2022 12:00 AM Ordering Location: [facility] Received: 06/29/2022 01:35 PM [...] characteristic determined by the Dermatopathology Laboratory at [facility], directed by Dr. Jean Miller. These tests need not be, and therefore are not, approved by the [place] Food and Drug Administration. The tests are used for clinical purposes. Billing Codes Specimen Charges Stain Charges 55312 1 2 5:55 PM CDT DERMATOPATHOLOGY LABORATORY Embedded Images 2 5:55 PM CDT DERMATOPATHOLOGY LABORATORY Pathology/Cytolog y TISSUE SPECIMEN FROM SKIN / Unknown 06/28/2022 06/29/2022 1:35 PM CDT Payam Blake MD LAB - PATHOLOGY/CYTOLOGY ORD ERABLES Final Result DERMATOPATHOLOGY LABORATORY [facility] - Department of Dermatology [address], [address] [phone] documented in this encounter Visit Diagnoses Not on filedocumented in this encounter
== END 2025-09-14 13:14 | disposition home or self-care (01) ==
LOC: ANHAUDIO 13:14
PROVIDERS: PCP Internal Medicine; Visit Provider Nurse Practitioner
DX: M10.9 Gout, unspecified (principal); N18.9 Chronic kidney disease, unspecified; H90.3 Sensorineural hearing loss, bilateral
CPT/HCPCS: 92557; 92567